=== PATIENT | female | born 1995 | race Hispanic/Latino ===

== ENCOUNTER → 2018-01-02 10:29 | Outpatient (CLI) | payer OTHER, MEDICAID, SELFPAY ==
[2018-01-02 17:37] LABS: Urine N gonorrhoeae NOT DETECTED
[2018-01-02 17:59] LABS: Urine Chlamydia NOT DETECTED
== END ==
PROVIDERS: PCP Family Medicine; Visit Provider Family Medicine
DX: Z11.3 Encounter for screening for infections with a predominantly sexual mode of transmission (principal)
CPT/HCPCS: 87491; 87591

== ENCOUNTER → 2018-01-16 11:21 | Outpatient (CLI) | payer OTHER, MEDICAID, SELFPAY ==
[2018-01-16 12:43] LABS: Add Manual Diff / Slide Review NO; Basophils Percent Auto 0.6 % (0-2); Eosinophils Percent Auto 0.4 % (2-4); Hematocrit 36.5 % (36-46); Hemoglobin 12.6 g/dL (12.0-16.0); Lymphocytes Percent Auto 29.7 % (25-40); Mean Corpuscular HGB Conc 34.5 % (30-36); Mean Corpuscular Hemoglobin 28.5 PG (26-34); Mean Corpuscular Volume 82.6 fL (80-100); Monocytes Percent Auto 10.2 % (3-14); Neutrophils Absolute Auto 2500 /uL (3000-5900); Neutrophils Percent Auto 59.1 % (50-75); Red Blood Cell Count 4.42 X10^6/uL (4.0-5.2); Red Cell Distribution Width 14.1 % (11.6-14.8); White Blood Cell Count 4.2 X10^3/uL (4.5-11.0)
[2018-01-16 14:03] LABS: Platelet Count 143 X10^3/uL (150-400)
[2018-01-16 14:27] LABS: Free T4, Direct Thyroxine 0.73 ng/dL (0.78-2.19)
[2018-01-16 16:36] LABS: HIV 1 and 2 Antibody NEGATIVE (NEGATIVE)
[2018-01-16 16:51] LABS: Glucose 89 mg/dL (70-100)
[2018-01-18 09:14] LABS: Hepatitis A Antibody IgM NONREACTIVE; Hepatitis Acute Panel Interp 0.07; Hepatitis B Core Antibody IgM NONREACTIVE; Hepatitis B Surface Antigen NONREACTIVE; Hepatitis C Antibody NONREACTIVE
[2018-01-24 14:50] LABS: Rapid Plasma Reagin NON REACTIVE
== END ==
PROVIDERS: PCP Family Medicine; Visit Provider Family Medicine
DX: E66.9 Obesity, unspecified (principal); Z11.3 Encounter for screening for infections with a predominantly sexual mode of transmission; R53.82 Chronic fatigue, unspecified
CPT/HCPCS: 36415; 80074; 82947; 84439; 84443; 85025; 86592; 86703

== ENCOUNTER → 2018-02-06 11:56 | Outpatient (CLI) | payer OTHER, MEDICAID, SELFPAY ==
[2018-02-06 13:42] LABS: Thyroid Stimulating Hormone 3.33 uIU/mL (0.47-4.68)
[2018-02-06 14:05] LABS: Vitamin B12 949 pg/mL (239-931)
[2018-02-06 15:53] LABS: Vitamin D 25 Hydroxy (D3) 20.5 ng/mL (30.0-100.0)
== END ==
PROVIDERS: PCP Family Medicine; Visit Provider Family Medicine
DX: E03.9 Hypothyroidism, unspecified (principal); R53.83 Other fatigue
CPT/HCPCS: 36415; 82306; 82607; 84443

== ENCOUNTER 2018-03-31 19:55 | Emergency (ER) | payer OTHER, MEDICAID, SELFPAY ==
[2018-03-31 20:02] VITALS: BP 131/91; PULSE 102; RESP 18; TEMP 37.5; O2SAT 98; BMI 35.4
--- NOTE | 2018-03-31 20:30 | ED.HA ---
HPI - Headache <ALEX Lim - Last Filed: 03/31/18 22:12> General Chief Complaint: Headache Stated Complaint: SIDE OF HEAD HURTS PERIOD FOR 2 WKS Time Seen by Provider: 03/31/18 20:20 Source: patient Mode of arrival: ambulatory History of Present Illness HPI Narrative: 22-year-old female with history of hypothyroidism and is a nonsmoker here for complaint of having headache to the right temporal/right eye area for the past couple of weeks. She denies any trauma to the area. She denies having history of having headaches. She denies any stressors or relievers of her symptoms. No nausea or vomiting. No photophobia. No fevers no chills. She denies any neck pain. Positive p.o. intake. She denies any other concerns or complaints at this time. MD Complaint: headache Related Data Previous Rx's Medication Instructions Recorded levothyroxine 50 mcg tablet 50 mcg PO DAILY #60 tab 01/17/18 prednisone 60 mg PO DAILY #21 tab 03/31/18 Allergies Allergy/AdvReac Type Severity Reaction Status Date / Time nabumetone AdvReac Mild itchy, Verified 03/31/18 20:52 stomach upset Review of Systems <ALEX Lim - Last Filed: 03/31/18 22:12> Review of Systems All systems reviewed & are unremarkable except as noted in HPI and below Constitutional Denies chills, Denies fever(s), Denies lethargy and Denies weakness Eyes Denies change in vision, Denies eye discharge, Denies irritation and Denies loss of vision ENT Ears, Nose, Mouth, and Throat: Denies change in voice, Denies neck pain and Denies sore throat Cardiovascular Denies chest pain, Denies irregular heart rhythm, Denies lightheadedness, Denies palpitations, Denies dyspnea, Denies dyspnea on exertion and Denies orthopnea Respiratory Denies cough, Denies dyspnea, Denies dyspnea on exertion and Denies wheezing Gastrointestinal Gastrointestinal: Denies abdominal pain, Denies change in bowel habits, Denies diarrhea, Denies nausea and Denies vomiting Genitourinary Denies hematuria, Denies flank pain, Denies urinary incontinence and Denies urinary urgency Musculoskeletal Denies neck pain Integumentary/Breasts Denies pruritus, Denies erythema, Denies rash and Denies wounds Neurologic Denies confusion, Denies loss of vision and Denies weakness Comments: Headache Psychiatric Denies anxiety, Denies confusion, Denies depression, Denies homicidal ideation and Denies suicidal ideation Endocrine Denies palpitations Hematologic/Lymphatic Denies easy bruising Allergic/Immunologic Denies wheezing Exam <ALEX Lim - Last Filed: 03/31/18 22:12> Initial Vital Signs Initial Vital Signs: Vital Signs Temperature 99.5 F 03/31/18 20:02 Pulse Rate 102 H 03/31/18 20:02 Respiratory Rate 18 03/31/18 20:02 Blood Pressure 131/91 H 03/31/18 20:02 Pulse Oximetry 98 03/31/18 20:02 Const General: cooperative and well developed Nutritional Appearance: well nourished Orientation: alert, awake, oriented x3 and not confused HENMT Head: normal to inspection, normocephalic, atraumatic, No Alex's sign, No contusion, No hematoma, No laceration, No palpable skull fracture, No raccoon eyes, No scalp lesion, No scalp tenderness and No temporal artery tenderness Mouth: oral mucosae normal and moist mucous membranes Throat: posterior oropharynx normal Eyes General: appearance normal, both eyes and all related structures Eyelids: eyelids normal Conjunctivae: conjunctivae normal Sclera: sclerae normal Pupils: PERRL EOM: EOM intact bilaterally Neck Neck: normal visual inspection, trachea midline, No lymphadenopathy, No midline deformity and No JVD Lymphatic: No lymphedema Resp Effort & Inspection: normal respiratory effort, able to speak in complete sentences, no respiratory distress and no use of accessory muscles Auscultation: clear to auscultation bilaterally, no rales, no rhonchi and no wheezes Cardio Rate: regular rate Rhythm: regular rhythm Heart Sounds: no click, no gallops, no murmurs and no rubs Skin General: no rashes or lesions noted, No jaundice and No petechiae Neuro General: alert, oriented x3, gait normal and no focal motor deficits Speech: speech normal <Fiona Champion DO - Last Filed: 04/01/18 02:26> Initial Vital Signs Initial Vital Signs: Vital Signs Temperature 99.5 F 03/31/18 20:02 Pulse Rate 102 H 03/31/18 20:02 Respiratory Rate 18 03/31/18 20:02 Blood Pressure 131/91 H 03/31/18 20:02 Pulse Oximetry 98 03/31/18 20:02 Course <ALEX Lim - Last Filed: 03/31/18 22:12> Orders Ordered: ED Orders 03/31/18 20:37 CT head/brain wo con Stat 03/31/18 20:44 Urine Microscopic Stat 03/31/18 20:55 C-Reactive Protein Quant Stat Complete Blood Count AUTO DIFF Stat Comprehensive Metabolic Panel Stat Erythrocyte Sedimentation Rate Stat Discontinued Medications Diphenhydramine HCl (Benadryl) 25 mg IV NOW ONE Stop: 03/31/18 20:37 Last Admin: 03/31/18 20:54 Dose: 25 mg Sodium Chloride (Normal Saline 0.9%) 1,000 mls @ 1,000 mls/hr IV BOLUS ONE Stop: 03/31/18 21:35 Last Infusion: 03/31/18 22:06 Dose: 0 mls/hr Admin: 03/31/18 20:55 Dose: 1,000 mls/hr Ketorolac Tromethamine (Toradol) 30 mg IV NOW ONE Stop: 03/31/18 20:37 Last Admin: 03/31/18 20:54 Dose: 30 mg Metoclopramide HCl (Reglan) 10 mg IV NOW ONE Stop: 03/31/18 20:37 Last Admin: 03/31/18 20:54 Dose: 10 mg Prednisone (Deltasone) 60 mg PO NOW ONE Stop: 03/31/18 21:59 Last Admin: 03/31/18 22:11 Dose: 60 mg Vital Signs - 8 hr 03/31/18 20:02 03/31/18 21:23 03/31/18 22:12 Temperature 99.5 F Pulse Rate 102 H 109 H 105 H Respiratory Rate 18 16 16 Blood Pressure 131/91 H Blood Pressure [Right Arm] 119/76 114/76 Pulse Oximetry 98 100 100 <Fiona Champion DO - Last Filed: 04/01/18 02:26> Orders Ordered: ED Orders 03/31/18 20:37 CT head/brain wo con Stat 03/31/18 20:44 Urine Microscopic Stat 03/31/18 20:55 C-Reactive Protein Quant Stat Complete Blood Count AUTO DIFF Stat Comprehensive Metabolic Panel Stat Erythrocyte Sedimentation Rate Stat Discontinued Medications Diphenhydramine HCl (Benadryl) 25 mg IV NOW ONE Stop: 03/31/18 20:37 Last Admin: 03/31/18 20:54 Dose: 25 mg Sodium Chloride (Normal Saline 0.9%) 1,000 mls @ 1,000 mls/hr IV BOLUS ONE Stop: 03/31/18 21:35 Last Infusion: 03/31/18 22:06 Dose: 0 mls/hr Admin: 03/31/18 20:55 Dose: 1,000 mls/hr Ketorolac Tromethamine (Toradol) 30 mg IV NOW ONE Stop: 03/31/18 20:37 Last Admin: 03/31/18 20:54 Dose: 30 mg Metoclopramide HCl (Reglan) 10 mg IV NOW ONE Stop: 03/31/18 20:37 Last Admin: 03/31/18 20:54 Dose: 10 mg Prednisone (Deltasone) 60 mg PO NOW ONE Stop: 03/31/18 21:59 Last Admin: 03/31/18 22:11 Dose: 60 mg Vital Signs - 8 hr 03/31/18 20:02 03/31/18 21:23 03/31/18 22:12 Temperature 99.5 F Pulse Rate 102 H 109 H 105 H Respiratory Rate 18 16 16 Blood Pressure 131/91 H Blood Pressure [Right Arm] 119/76 114/76 Pulse Oximetry 98 100 100 MDM - Headache <ALEX Lim - Last Filed: 03/31/18 22:12> Lab Data Result diagrams: 03/31/18 20:55 03/31/18 20:55 Lab Results 03/31/18 03/31/18 03/31/18 Range/Units 20:44 20:55 20:55 WBC 3.7 L (4.5-11.0) X10^3/uL RBC 4.39 (4.0-5.2) X10^6/uL Hgb 12.2 (12.0-16.0) g/dL Hct 36.1 (36-46) % MCV 82.1 (80-100) fL MCH 27.8 (26-34) PG MCHC 33.8 (30-36) % RDW 14.2 (11.6-14.8) % Plt Count 145 L (150-400) X10^3/uL Neut % (Auto) 50.5 (50-75) % Lymph % (Auto) 35.1 (25-40) % [place] % (Auto) 11.6 (3-14) % Eos % (Auto) 1.7 L (2-4) % Baso % (Auto) 1.1 (0-2) % Neut # (Auto) 1800 L (6116-5031) /uL ESR 65 H (0-20) MM/HR Sodium 144 (137-145) mmol/L Potassium 4.2 (3.4-5.1) mmol/L Chloride 104 (98-107) mmol/L Carbon Dioxide 27 (22-32) mmol/L BUN 16 (7-17) mg/dL Creatinine 0.60 (0.52-1.04) mg/dL Estimated GFR > 60.0 (>60) mL/min BUN/Creatinine Ratio 26.7 H (6-22) Glucose 92 (70-100) mg/dL Calcium 9.8 (8.4-10.2) mg/dL Total Bilirubin 0.3 (0.2-1.3) mg/dL AST 40 H (14-36) IU/L ALT 36 (9-52) IU/L Alkaline Phosphatase 69 (38-126) U/L C-Reactive Protein 2.6 H (<1.0) mg/dL Total Protein 8.6 H (6.3-8.2) g/dL Albumin 4.4 (3.5-5.0) g/dL Globulin 4.2 H (1.7-4.1) g/dL Albumin/Globulin Ratio 1.0 (1.0-2.8) Urine RBC 1-5/hpf (0-5/HPF) Urine WBC 0-1/hpf (0-5/HPF) Ur Squamous Epith Cells 0-1 /hpf Urine Bacteria Few (2-10) H (None) Ur Culture Indicated? Cult not indicated Micro UA Comment Not Reportable Point of Care Testing Test Results Negative Urine Dip Bedside Urine Glucose Negative Bedside Urine Bilirubin - Negative Bedside Urine Ketone - Negative Urine Specific [place] 1.030 Bedside Urine Occult Blood ++ Bedside Urine pH 6.0 Bedside Urine Protein - Negative Bedside Urine Urobilinogen - Negative Bedside Urine Nitrite - Negative Bedside Urine Leukocytes - Negative Esterase Imaging Data CT scan - head: Radiologist's impression: [address] [place], [place] [id number] CT Scan Report Signed Patient: Elis John#: [id number] : 1995Acct:[id number] Age/Sex: 22 / FDate of Service: 03/31/18 Loc: ED Accession Number: [id number] Procedure: CT head/brain wo con Ordering Provider: Gonzalez Yeager PROCEDURE: CT HEAD/BRAIN WO CON INDICATIONS: Headache last couple weeks TECHNIQUE: Noncontrast 4.5 mm thick angled axial sections acquired from the foramen magnum to the vertex, with coronal and sagittal reformats. For radiation dose reduction, the following was used: automated exposure control, adjustment of mA and/or kV according to patient size. COMPARISON: None. FINDINGS: Image quality: Excellent. CSF spaces: Basal cisterns are patent. No extra-axial fluid collections. Ventricles are normal in size and shape. Brain: No midline shift. No intracranial masses or hemorrhage. Larson-white matter interface is normal. Skull and face: Calvarium and visualized facial bones are intact, without suspicious lesions. Sinuses: Visualized sinuses and mastoids are clear. IMPRESSION: 1. No acute intracranial process. Dictated by: Mulu Blount M.D. on 03/31/2018 at 21:18 Approved by: Mulu Blount M.D. on 03/31/2018 at 21:19 [facility] Narrative Medical decision making narrative: CT of the head was obtained was negative for any acute findings. CBC shows a low white count of 3.7 and decreased neutrophils however is consistent with her prior lab values. ESR and CRP were obtained and were elevated. This is concerning for temporal arteritis. She is placed on high-dose prednisone. She is encouraged to follow up with primary care provider the next few days for re-evaluation. Discussed case with Dr. Mills whose office will follow up with her in the next few days. She was given fluids and Toradol along with Compazine and Benadryl which helped her headache. [id number] Tylenol or Motrin as needed for any discomfort. Return emergency room for worsening symptoms. <Fiona Champion, DO - Last Filed: 04/01/18 02:26> Lab Data Lab Results 03/31/18 03/31/18 03/31/18 Range/Units 20:44 20:55 20:55 WBC 3.7 L (4.5-11.0) X10^3/uL RBC 4.39 (4.0-5.2) X10^6/uL Hgb 12.2 (12.0-16.0) g/dL Hct 36.1 (36-46) % MCV 82.1 (80-100) fL MCH 27.8 (26-34) PG MCHC 33.8 (30-36) % RDW 14.2 (11.6-14.8) % Plt Count 145 L (150-400) X10^3/uL Neut % (Auto) 50.5 (50-75) % Lymph % (Auto) 35.1 (25-40) % [place] % (Auto) 11.6 (3-14) % Eos % (Auto) 1.7 L (2-4) % Baso % (Auto) 1.1 (0-2) % Neut # (Auto) 1800 L (3186-2007) /uL ESR 65 H (0-20) MM/HR Sodium 144 (137-145) mmol/L Potassium 4.2 (3.4-5.1) mmol/L Chloride 104 (98-107) mmol/L Carbon Dioxide 27 (22-32) mmol/L BUN 16 (7-17) mg/dL Creatinine 0.60 (0.52-1.04) mg/dL Estimated GFR > 60.0 (>60) mL/min BUN/Creatinine Ratio 26.7 H (6-22) Glucose 92 (70-100) mg/dL Calcium 9.8 (8.4-10.2) mg/dL Total Bilirubin 0.3 (0.2-1.3) mg/dL AST 40 H (14-36) IU/L ALT 36 (9-52) IU/L Alkaline Phosphatase 69 (38-126) U/L C-Reactive Protein 2.6 H (<1.0) mg/dL Total Protein 8.6 H (6.3-8.2) g/dL Albumin 4.4 (3.5-5.0) g/dL Globulin 4.2 H (1.7-4.1) g/dL Albumin/Globulin Ratio 1.0 (1.0-2.8) Urine RBC 1-5/hpf (0-5/HPF) Urine WBC 0-1/hpf (0-5/HPF) Ur Squamous Epith Cells 0-1 /hpf Urine Bacteria Few (2-10) H (None) Ur Culture Indicated? Cult not indicated Micro UA Comment Not Reportable Point of Care Testing Test Results Negative Urine Dip Bedside Urine Glucose Negative Bedside Urine Bilirubin - Negative Bedside Urine Ketone - Negative Urine Specific [place] 1.030 Bedside Urine Occult Blood ++ Bedside Urine pH 6.0 Bedside Urine Protein - Negative Bedside Urine Urobilinogen - Negative Bedside Urine Nitrite - Negative Bedside Urine Leukocytes - Negative Esterase Discharge Plan Departure Patient Disposition: Home Clinical Impression: Headache Discharge Date/Time: 03/31/18 22:24 Interventions: ED Discharge Assessment Last Done: 03/31/18 22:17 Instructions: Temporal Arteritis Activity Restrictions/Additional Instructions: CT of the head was obtained was negative for any acute findings. Inflammation markers of ESR and CRP were elevated today along with a headache to the temporal region is concerning for a condition called temporal arteritis. Treatment for this is high-dose steroids to to down the immune system as this is an autoimmune disease. Follow up with her primary care office Monday for further evaluation call the office Monday morning to schedule follow-up appointment. Use [id number] Tylenol or Motrin as needed for any discomfort. For any worsening symptoms return to the emergency room. You were started on prednisone tonight fill prescription tomorrow for the next subsequent days of the prednisone Prescriptions: New prednisone 20 mg tablet 60 mg PO DAILY Qty: 21 RF: 0 No Action levothyroxine 50 mcg tablet 50 mcg PO DAILY Qty: 60 RF: 1 Referrals: Frida Singh MD [Primary Care Provider] - Stand Alone Forms: Work/School Restrictions <Fiona Champion DO - Last Filed: 04/01/18 02:26> Cosign ED Attending Amaraature Attestation: I was immediately available in the department for consultation. Documentation has been reviewed. I agree with assessment and plan.
--- NOTE | 2018-03-31 20:37 | DI.CT.S_ITS ---
PROCEDURE: CT HEAD/BRAIN WO CON INDICATIONS: Headache last couple weeks TECHNIQUE: Noncontrast 4.5 mm thick angled axial sections acquired from the foramen magnum to the vertex, with coronal and sagittal reformats. For radiation dose reduction, the following was used: automated exposure control, adjustment of mA and/or kV according to patient size. COMPARISON: None. FINDINGS: Image quality: Excellent. CSF spaces: Basal cisterns are patent. No extra-axial fluid collections. Ventricles are normal in size and shape. Brain: No midline shift. No intracranial masses or hemorrhage. Larson-white matter interface is normal. Skull and face: Calvarium and visualized facial bones are intact, without suspicious lesions. Sinuses: Visualized sinuses and mastoids are clear. IMPRESSION: 1. No acute intracranial process. Dictated by: Mulu Blount M.D. on 03/31/2018 at 21:18 Approved by: Mulu Blount M.D. on 03/31/2018 at 21:19
--- NOTE | 2018-03-31 20:52 | ED_ITS ---
HPI - Headache <ALEX Lim - Last Filed: 03/31/18 22:12> General Chief Complaint: Headache Stated Complaint: SIDE OF HEAD HURTS PERIOD FOR 2 WKS Time Seen by Provider: 03/31/18 20:20 Source: patient Mode of arrival: ambulatory History of Present Illness HPI Narrative: 22-year-old female with history of hypothyroidism and is a nonsmoker here for complaint of having headache to the right temporal/right eye area for the past couple of weeks. She denies any trauma to the area. She denies having history of having headaches. She denies any stressors or relievers of her symptoms. No nausea or vomiting. No photophobia. No fevers no chills. She denies any neck pain. Positive p.o. intake. She denies any other concerns or complaints at this time. MD Complaint: headache Related Data Previous Rx's Medication Instructions Recorded levothyroxine 50 mcg tablet 50 mcg PO DAILY #60 tab 01/17/18 prednisone 60 mg PO DAILY #21 tab 03/31/18 Allergies Allergy/AdvReac Type Severity Reaction Status Date / Time nabumetone AdvReac Mild itchy, Verified 03/31/18 20:52 stomach upset Review of Systems <ALEX Lim - Last Filed: 03/31/18 22:12> Review of Systems All systems reviewed & are unremarkable except as noted in HPI and below Constitutional Denies chills, Denies fever(s), Denies lethargy and Denies weakness Eyes Denies change in vision, Denies eye discharge, Denies irritation and Denies loss of vision ENT Ears, Nose, Mouth, and Throat: Denies change in voice, Denies neck pain and Denies sore throat Cardiovascular Denies chest pain, Denies irregular heart rhythm, Denies lightheadedness, Denies palpitations, Denies dyspnea, Denies dyspnea on exertion and Denies orthopnea Respiratory Denies cough, Denies dyspnea, Denies dyspnea on exertion and Denies wheezing Gastrointestinal Gastrointestinal: Denies abdominal pain, Denies change in bowel habits, Denies diarrhea, Denies nausea and Denies vomiting Genitourinary Denies hematuria, Denies flank pain, Denies urinary incontinence and Denies urinary urgency Musculoskeletal Denies neck pain Integumentary/Breasts Denies pruritus, Denies erythema, Denies rash and Denies wounds Neurologic Denies confusion, Denies loss of vision and Denies weakness Comments: Headache Psychiatric Denies anxiety, Denies confusion, Denies depression, Denies homicidal ideation and Denies suicidal ideation Endocrine Denies palpitations Hematologic/Lymphatic Denies easy bruising Allergic/Immunologic Denies wheezing Exam <ALEX Lim - Last Filed: 03/31/18 22:12> Initial Vital Signs Initial Vital Signs: Vital Signs Temperature 99.5 F 03/31/18 20:02 Pulse Rate 102 H 03/31/18 20:02 Respiratory Rate 18 03/31/18 20:02 Blood Pressure 131/91 H 03/31/18 20:02 Pulse Oximetry 98 03/31/18 20:02 Const General: cooperative and well developed Nutritional Appearance: well nourished Orientation: alert, awake, oriented x3 and not confused HENMT Head: normal to inspection, normocephalic, atraumatic, No Alex's sign, No contusion, No hematoma, No laceration, No palpable skull fracture, No raccoon eyes, No scalp lesion, No scalp tenderness and No temporal artery tenderness Mouth: oral mucosae normal and moist mucous membranes Throat: posterior oropharynx normal Eyes General: appearance normal, both eyes and all related structures Eyelids: eyelids normal Conjunctivae: conjunctivae normal Sclera: sclerae normal Pupils: PERRL EOM: EOM intact bilaterally Neck Neck: normal visual inspection, trachea midline, No lymphadenopathy, No midline deformity and No JVD Lymphatic: No lymphedema Resp Effort & Inspection: normal respiratory effort, able to speak in complete sentences, no respiratory distress and no use of accessory muscles Auscultation: clear to auscultation bilaterally, no rales, no rhonchi and no wheezes Cardio Rate: regular rate Rhythm: regular rhythm Heart Sounds: no click, no gallops, no murmurs and no rubs Skin General: no rashes or lesions noted, No jaundice and No petechiae Neuro General: alert, oriented x3, gait normal and no focal motor deficits Speech: speech normal <Fiona Champion DO - Last Filed: 04/01/18 02:26> Initial Vital Signs Initial Vital Signs: Vital Signs Temperature 99.5 F 03/31/18 20:02 Pulse Rate 102 H 03/31/18 20:02 Respiratory Rate 18 03/31/18 20:02 Blood Pressure 131/91 H 03/31/18 20:02 Pulse Oximetry 98 03/31/18 20:02 Course <ALEX Lim - Last Filed: 03/31/18 22:12> Orders Ordered: ED Orders 03/31/18 20:37 CT head/brain wo con Stat 03/31/18 20:44 Urine Microscopic Stat 03/31/18 20:55 C-Reactive Protein Quant Stat Complete Blood Count AUTO DIFF Stat Comprehensive Metabolic Panel Stat Erythrocyte Sedimentation Rate Stat Discontinued Medications Diphenhydramine HCl (Benadryl) 25 mg IV NOW ONE Stop: 03/31/18 20:37 Last Admin: 03/31/18 20:54 Dose: 25 mg Sodium Chloride (Normal Saline 0.9%) 1,000 mls @ 1,000 mls/hr IV BOLUS ONE Stop: 03/31/18 21:35 Last Infusion: 03/31/18 22:06 Dose: 0 mls/hr Admin: 03/31/18 20:55 Dose: 1,000 mls/hr Ketorolac Tromethamine (Toradol) 30 mg IV NOW ONE Stop: 03/31/18 20:37 Last Admin: 03/31/18 20:54 Dose: 30 mg Metoclopramide HCl (Reglan) 10 mg IV NOW ONE Stop: 03/31/18 20:37 Last Admin: 03/31/18 20:54 Dose: 10 mg Prednisone (Deltasone) 60 mg PO NOW ONE Stop: 03/31/18 21:59 Last Admin: 03/31/18 22:11 Dose: 60 mg Vital Signs - 8 hr 03/31/18 20:02 03/31/18 21:23 03/31/18 22:12 Temperature 99.5 F Pulse Rate 102 H 109 H 105 H Respiratory Rate 18 16 16 Blood Pressure 131/91 H Blood Pressure [Right Arm] 119/76 114/76 Pulse Oximetry 98 100 100 <Fiona Champion DO - Last Filed: 04/01/18 02:26> Orders Ordered: ED Orders 03/31/18 20:37 CT head/brain wo con Stat 03/31/18 20:44 Urine Microscopic Stat 03/31/18 20:55 C-Reactive Protein Quant Stat Complete Blood Count AUTO DIFF Stat Comprehensive Metabolic Panel Stat Erythrocyte Sedimentation Rate Stat Discontinued Medications Diphenhydramine HCl (Benadryl) 25 mg IV NOW ONE Stop: 03/31/18 20:37 Last Admin: 03/31/18 20:54 Dose: 25 mg Sodium Chloride (Normal Saline 0.9%) 1,000 mls @ 1,000 mls/hr IV BOLUS ONE Stop: 03/31/18 21:35 Last Infusion: 03/31/18 22:06 Dose: 0 mls/hr Admin: 03/31/18 20:55 Dose: 1,000 mls/hr Ketorolac Tromethamine (Toradol) 30 mg IV NOW ONE Stop: 03/31/18 20:37 Last Admin: 03/31/18 20:54 Dose: 30 mg Metoclopramide HCl (Reglan) 10 mg IV NOW ONE Stop: 03/31/18 20:37 Last Admin: 03/31/18 20:54 Dose: 10 mg Prednisone (Deltasone) 60 mg PO NOW ONE Stop: 03/31/18 21:59 Last Admin: 03/31/18 22:11 Dose: 60 mg Vital Signs - 8 hr 03/31/18 20:02 03/31/18 21:23 03/31/18 22:12 Temperature 99.5 F Pulse Rate 102 H 109 H 105 H Respiratory Rate 18 16 16 Blood Pressure 131/91 H Blood Pressure [Right Arm] 119/76 114/76 Pulse Oximetry 98 100 100 MDM - Headache <ALEX Lim - Last Filed: 03/31/18 22:12> Lab Data Result diagrams: 03/31/18 20:55 03/31/18 20:55 Lab Results 03/31/18 03/31/18 03/31/18 Range/Units 20:44 20:55 20:55 WBC 3.7 L (4.5-11.0) X10^3/uL RBC 4.39 (4.0-5.2) X10^6/uL Hgb 12.2 (12.0-16.0) g/dL Hct 36.1 (36-46) % MCV 82.1 (80-100) fL MCH 27.8 (26-34) PG MCHC 33.8 (30-36) % RDW 14.2 (11.6-14.8) % Plt Count 145 L (150-400) X10^3/uL Neut % (Auto) 50.5 (50-75) % Lymph % (Auto) 35.1 (25-40) % Stone % (Auto) 11.6 (3-14) % Eos % (Auto) 1.7 L (2-4) % Baso % (Auto) 1.1 (0-2) % Neut # (Auto) 1800 L (0741-4754) /uL ESR 65 H (0-20) MM/HR Sodium 144 (137-145) mmol/L Potassium 4.2 (3.4-5.1) mmol/L Chloride 104 (98-107) mmol/L Carbon Dioxide 27 (22-32) mmol/L BUN 16 (7-17) mg/dL Creatinine 0.60 (0.52-1.04) mg/dL Estimated GFR > 60.0 (>60) mL/min BUN/Creatinine Ratio 26.7 H (6-22) Glucose 92 (70-100) mg/dL Calcium 9.8 (8.4-10.2) mg/dL Total Bilirubin 0.3 (0.2-1.3) mg/dL AST 40 H (14-36) IU/L ALT 36 (9-52) IU/L Alkaline Phosphatase 69 (38-126) U/L C-Reactive Protein 2.6 H (<1.0) mg/dL Total Protein 8.6 H (6.3-8.2) g/dL Albumin 4.4 (3.5-5.0) g/dL Globulin 4.2 H (1.7-4.1) g/dL Albumin/Globulin Ratio 1.0 (1.0-2.8) Urine RBC 1-5/hpf (0-5/HPF) Urine WBC 0-1/hpf (0-5/HPF) Ur Squamous Epith Cells 0-1 /hpf Urine Bacteria Few (2-10) H (None) Ur Culture Indicated? Cult not indicated Micro UA Comment Not Reportable Point of Care Testing Test Results Negative Urine Dip Bedside Urine Glucose Negative Bedside Urine Bilirubin - Negative Bedside Urine Ketone - Negative Urine Specific [place] 1.030 Bedside Urine Occult Blood ++ Bedside Urine pH 6.0 Bedside Urine Protein - Negative Bedside Urine Urobilinogen - Negative Bedside Urine Nitrite - Negative Bedside Urine Leukocytes - Negative Esterase Imaging Data CT scan - head: Radiologist's impression: [address] [place], [place] [id number] CT Scan Report Signed Patient: Elis John#: [id number] : 1995Acct:[id number] Age/Sex: 22 / FDate of Service: 03/31/18 Loc: ED Accession Number: [id number] Procedure: CT head/brain wo con Ordering Provider: Gonzalez Yeager PROCEDURE: CT HEAD/BRAIN WO CON INDICATIONS: Headache last couple weeks TECHNIQUE: Noncontrast 4.5 mm thick angled axial sections acquired from the foramen magnum to the vertex, with coronal and sagittal reformats. For radiation dose reduction, the following was used: automated exposure control, adjustment of mA and/or kV according to patient size. COMPARISON: None. FINDINGS: Image quality: Excellent. CSF spaces: Basal cisterns are patent. No extra-axial fluid collections. Ventricles are normal in size and shape. Brain: No midline shift. No intracranial masses or hemorrhage. Larson-white matter interface is normal. Skull and face: Calvarium and visualized facial bones are intact, without suspicious lesions. Sinuses: Visualized sinuses and mastoids are clear. IMPRESSION: 1. No acute intracranial process. Dictated by: Mulu Blount M.D. on 03/31/2018 at 21:18 Approved by: Mulu Blount M.D. on 03/31/2018 at 21:19 [facility] Narrative Medical decision making narrative: CT of the head was obtained was negative for any acute findings. CBC shows a low white count of 3.7 and decreased neutrophils however is consistent with her prior lab values. ESR and CRP were obtained and were elevated. This is concerning for temporal arteritis. She is placed on high-dose prednisone. She is encouraged to follow up with primary care provider the next few days for re-evaluation. Discussed case with Dr. Mills whose office will follow up with her in the next few days. She was given fluids and Toradol along with Compazine and Benadryl which helped her headache. [id number] Tylenol or Motrin as needed for any discomfort. Return emergency room for worsening symptoms. <Fiona Champion, DO - Last Filed: 04/01/18 02:26> Lab Data Lab Results 03/31/18 03/31/18 03/31/18 Range/Units 20:44 20:55 20:55 WBC 3.7 L (4.5-11.0) X10^3/uL RBC 4.39 (4.0-5.2) X10^6/uL Hgb 12.2 (12.0-16.0) g/dL Hct 36.1 (36-46) % MCV 82.1 (80-100) fL MCH 27.8 (26-34) PG MCHC 33.8 (30-36) % RDW 14.2 (11.6-14.8) % Plt Count 145 L (150-400) X10^3/uL Neut % (Auto) 50.5 (50-75) % Lymph % (Auto) 35.1 (25-40) % Stone % (Auto) 11.6 (3-14) % Eos % (Auto) 1.7 L (2-4) % Baso % (Auto) 1.1 (0-2) % Neut # (Auto) 1800 L (4306-5490) /uL ESR 65 H (0-20) MM/HR Sodium 144 (137-145) mmol/L Potassium 4.2 (3.4-5.1) mmol/L Chloride 104 (98-107) mmol/L Carbon Dioxide 27 (22-32) mmol/L BUN 16 (7-17) mg/dL Creatinine 0.60 (0.52-1.04) mg/dL Estimated GFR > 60.0 (>60) mL/min BUN/Creatinine Ratio 26.7 H (6-22) Glucose 92 (70-100) mg/dL Calcium 9.8 (8.4-10.2) mg/dL Total Bilirubin 0.3 (0.2-1.3) mg/dL AST 40 H (14-36) IU/L ALT 36 (9-52) IU/L Alkaline Phosphatase 69 (38-126) U/L C-Reactive Protein 2.6 H (<1.0) mg/dL Total Protein 8.6 H (6.3-8.2) g/dL Albumin 4.4 (3.5-5.0) g/dL Globulin 4.2 H (1.7-4.1) g/dL Albumin/Globulin Ratio 1.0 (1.0-2.8) Urine RBC 1-5/hpf (0-5/HPF) Urine WBC 0-1/hpf (0-5/HPF) Ur Squamous Epith Cells 0-1 /hpf Urine Bacteria Few (2-10) H (None) Ur Culture Indicated? Cult not indicated Micro UA Comment Not Reportable Point of Care Testing Test Results Negative Urine Dip Bedside Urine Glucose Negative Bedside Urine Bilirubin - Negative Bedside Urine Ketone - Negative Urine Specific [place] 1.030 Bedside Urine Occult Blood ++ Bedside Urine pH 6.0 Bedside Urine Protein - Negative Bedside Urine Urobilinogen - Negative Bedside Urine Nitrite - Negative Bedside Urine Leukocytes - Negative Esterase Discharge Plan Departure Patient Disposition: Home Clinical Impression: Headache Discharge Date/Time: 03/31/18 22:24 Interventions: ED Discharge Assessment Last Done: 03/31/18 22:17 Instructions: Temporal Arteritis Activity Restrictions/Additional Instructions: CT of the head was obtained was negative for any acute findings. Inflammation markers of ESR and CRP were elevated today along with a headache to the temporal region is concerning for a condition called temporal arteritis. Treatment for this is high-dose steroids to to down the immune system as this is an autoimmune disease. Follow up with her primary care office Monday for further evaluation call the office Monday morning to schedule follow -up appointment. Use [id number]-[id number] Tylenol or Motrin as needed for any discomfort. For any worsening symptoms return to the emergency room. You were started on prednisone tonight fill prescription tomorrow for the next subsequent days of the prednisone Prescriptions: New prednisone 20 mg tablet 60 mg PO DAILY Qty: 21 RF: 0 No Action levothyroxine 50 mcg tablet 50 mcg PO DAILY Qty: 60 RF: 1 Referrals: Frida Singh MD [Primary Care Provider] - Stand Alone Forms: Work/School Restrictions <Fiona Champion DO - Last Filed: 04/01/18 02:26> Cosign ED Attending Amaraature Attestation: I was immediately available in the department for consultation. Documentation has been reviewed. I agree with assessment and plan.
[2018-03-31] MEDS: KETOROLAC 60 MG/2 ML VIAL 30 MG IV (20:54)
[2018-03-31] MEDS: METOCLOPRAMIDE 10 MG/2 ML INJ IV (20:54)
[2018-03-31] MEDS: diphenhydrAMINE 50 MG/ML VIAL 25 MG IV (20:54)
[2018-03-31] MEDS: SODIUM CHLORIDE 0.9% 1,000 ML 1000 ML IV (20:55)
[2018-03-31 21:01] LABS: Bacteria Urine Few (2-10); Culture Indicated Urine Cult Not Indicated; RBC Urine 1-5/HPF (0-5/HPF); Squamous Epithelial Cell Urine 0-1 /HPF; WBC Urine 0-1/HPF (0-5/HPF)
[2018-03-31 21:21] LABS: Add Manual Diff / Slide Review NO; Basophils Percent Auto 1.1 % (0-2); Eosinophils Percent Auto 1.7 % (2-4); Hematocrit 36.1 % (36-46); Hemoglobin 12.2 g/dL (12.0-16.0); Lymphocytes Percent Auto 35.1 % (25-40); Mean Corpuscular HGB Conc 33.8 % (30-36); Mean Corpuscular Hemoglobin 27.8 PG (26-34); Mean Corpuscular Volume 82.1 fL (80-100); Monocytes Percent Auto 11.6 % (3-14); Neutrophils Absolute Auto 1800 /uL (3000-5900); Neutrophils Percent Auto 50.5 % (50-75); Platelet Count 145 X10^3/uL (150-400); Red Blood Cell Count 4.39 X10^6/uL (4.0-5.2); Red Cell Distribution Width 14.2 % (11.6-14.8); White Blood Cell Count 3.7 X10^3/uL (4.5-11.0)
[2018-03-31 21:23] VITALS: BP 119/76; PULSE 109; RESP 16; O2SAT 100
[2018-03-31 21:28] LABS: Alanine Aminotransferase 36 IU/L (9-52); Albumin 4.4 g/dL (3.5-5.0); Alkaline Phosphatase 69 U/L (38-126); Aspartate Aminotransferase 40 IU/L (14-36); BUN Creatinine Ratio 26.7 (6-22); Bilirubin Total 0.3 mg/dL (0.2-1.3); Blood Urea Nitrogen 16 mg/dL (7-17); Calcium 9.8 mg/dL (8.4-10.2); Carbon Dioxide 27 mmol/L (22-32); Chloride 104 mmol/L (98-107); Estimated Glomerular Filt Rate > 60.0 mL/min (>60); Globulin 4.2 g/dL (1.7-4.1); Glucose 92 mg/dL (70-100); HEMOLYSIS < 15 (0-50); Potassium 4.2 mmol/L (3.4-5.1); Sodium 144 mmol/L (137-145); Total Protein 8.6 g/dL (6.3-8.2)
[2018-03-31 21:36] LABS: Erythrocyte Sedimentation Rate 65 MM/HR (0-20)
[2018-03-31 21:41] LABS: C-Reactive Protein Quant 2.6 mg/dL (<1.0)
[2018-03-31] MEDS: predniSONE 20 MG TABLET 60 MG PO (22:11)
[2018-03-31 22:12] VITALS: BP 114/76; PULSE 105; RESP 16; O2SAT 100
== END 2018-03-31 22:24 | disposition home or self-care (01) ==
PROVIDERS: Emergency Provider Nurse Practitioner Family; PCP Family Medicine
DX: R51 Headache (principal)
CPT/HCPCS: 36591; 70450; 80053; 81003; 81015; 81025; 85025; 85651; 86140; 96361; 96374; 96375; 99283; 99284; J1200; J1885; J2765

== ENCOUNTER 2018-04-05 14:38 | Day surgery (SDC) | payer OTHER, MEDICAID, SELFPAY ==
[2018-04-04 14:12] VITALS: BMI 34.7
--- NOTE | 2018-04-05 | PATH_ITS ---
[facility] Accession Number: [id number] . 01 Material submitted: . PART A: LEFT TEMPORAL ARTERY SEGMENT AND POSSIBLE VEIN PART B: RIGHT TEMPORAL ARTERY SEGMENT . 02 Diagnosis: A. Left Temporal Artery Segment And Possible Vein: Negative for features of temporal arteritis. No structural abnormality identified by VVG stain. . B. Right Temporal Artery Segment: Negative for features of temporal arteritis. No structural abnormality identified by VVG stain. I04/09/2018 . 02 Electronically signed: . Rosy Anna MD, Pathologist NPI- [id number] . 01 Gross description: . Part A: LEFT TEMPORAL ARTERY SEGMENT AND POSSIBLE VEIN: Received in formalin is 1 fragment(s) of ca, soft tissue measuring 0.9 x 0.4 x 0.3 cm submitted entirely in 1 cassette(s) Part B: RIGHT TEMPORAL ARTERY SEGMENT: Received in formalin is 1 fragment(s) of ca, soft tissue measuring 1.0 x 0.3 x 0.2 cm submitted entirely in 1 cassette(s) /CKI /CKI . 02 Pathologist provided ICD-10: M31.6 . 02 CPT . 318982, 215976, 281925 Specimen Comment: A duplicate report has been generated due to demographic updates. Performed at: 01 [facility] [address], [place], [place] [id number] MD Edd Dickinson MD Phone: [phone] Performed at: 02 [facility] [address] [place], [place] [id number] MD Martina Duarte MD Phone: [phone]
[2018-04-05 15:26] VITALS: BP 125/89; PULSE 94; RESP 16; TEMP 36.1; O2SAT 100; BMI 34.7
[2018-04-05] MEDS: LACTATED RINGERS 1,000 ML 100 ML IV (15:33)
--- NOTE | 2018-04-05 15:58 | PM.PREOP ---
Pre-operative Note Interval Note Pre-op Check: Yes History & Physical Reviewed by Physician and Yes Exam Performed Changes: No
[2018-04-05] MEDS: CEFAZOLIN 2 GM/100 ML FROZ.PIGGY IV (16:25)
--- NOTE | 2018-04-05 16:56 | SUR.OPER ---
Supine on padded OR bed, head on pillow, arms secured on padded arm boards at <90 degrees abduction, legs uncrossed, safety belt at thigh, tape over blanket over lower legs.
[2018-04-05] MEDS: LIDOCAINE 1% 30 ML INJ INJ (17:03)
[2018-04-05 18:00] VITALS: BP 111/79; PULSE 96; RESP 15; TEMP 36.4; O2SAT 100
[2018-04-05 18:05] VITALS: BP 127/84; PULSE 70; RESP 16; O2SAT 100
[2018-04-05 18:10] VITALS: BP 133/70; PULSE 75; RESP 16; O2SAT 100
[2018-04-05] MEDS: fentaNYL 100 MCG/2 ML INJ 25 MCG IV ×2 (18:19→18:25)
--- NOTE | 2018-04-05 18:20 | PM.OP.1 ---
Operative Date/Time/Diagnoses Date of procedure: 04/05/18 Time of procedure: 18:04 Pre-op diagnosis: Sided temporal headache consider temporal arteritis. Elevated nonspecific inflammatory markers. Post-op diagnosis: same Procedure & Clinicians Procedure: Bilateral temporal artery biopsy Same procedure as scheduled: Yes Indications: Rule out temporal arteritis Surgeon: Butch Briseno Click Yes if Unassisted: Yes Anesthesia Type: General Operative Notes Findings: Normal appearing arteries Closure Type: primary Specimen(s): other (Segment temporal Artery and possible vein on the left. Segment temporal Artery on the right) Implants & Drains: None Estimated Blood Loss (mL): 5 Blood products transfused: none Procedure in detail: The patient was placed supine on the operating table and underwent general LMA anesthesia. Hair was clipped on both sides and the left side was prepped and draped. Using a Doppler I found an arterial signal. Fortunately was posterior hairline. A small incision was made overlying it and using sharp and blunt dissection artery and and adjacent vein were from surrounding structures and all branches were ligated and the segment removed. Muscle fascia was closed with interrupted 3 0 Polysorb. The says skin was closed with interrupted 4 0 Vicryl subcuticular stitches and Dermabond. Attention was turned to the opposite right side where an identical operation was undertaken. On this side I was able to isolate the artery better from the vein. Think a took mostly artery on the right. The closure was identical to the opposite side. Patient tolerated the procedure well was extubated in the a all are in taken recovery room good condition. Complications: none Condition: stable Disposition: PACU
[2018-04-05 18:25] VITALS: BP 135/97; PULSE 84; RESP 16; TEMP 36.6; O2SAT 100
[2018-04-05] MEDS: OXYCODONE/ACETAMINOPHEN 5/325 TABLET 1 TAB PO (18:43)
[2018-04-05 18:44] VITALS: BP 137/90; PULSE 79; RESP 16; TEMP 36.4; O2SAT 98
== END 2018-04-05 18:57 | disposition home or self-care (01) ==
PROVIDERS: PCP Family Medicine; Visit Provider Specialist
PROC: (CPT 37609; principal; 2018-04-05 16:00)
DX: M31.6 Other giant cell arteritis (principal); R51 Headache; E03.9 Hypothyroidism, unspecified
CPT/HCPCS: 37609; J0690; J1100; J2250; J2405; J2704; J3010

== ENCOUNTER 2018-06-23 11:19 | Emergency (ER) | payer OTHER, MEDICAID, SELFPAY ==
[2018-06-23 11:24] VITALS: BP 119/85; PULSE 96; RESP 14; TEMP 36.6; O2SAT 100; BMI 32.9
--- NOTE | 2018-06-23 12:29 | ED_ITS ---
HPI - Extremity Problem <Jessica Lepe PA-C - Last Filed: 06/23/18 15:22> General Chief complaint: Extremity Problem,Nontraumatic Stated complaint: States severe rt foot pain x1day Time Seen by Provider: 06/23/18 12:24 Source: patient Mode of arrival: ambulatory Limitations: no limitations History of Present Illness HPI Narrative: This 22-year-old female complains of severe right foot pain that started when she got up this morning. 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 She states that pain is more on the lateral side of the foot, okay when at rest but very painful if she tries to bear any weight. She denies pain in the heel and indicates this is more around the ball of her foot. Worse with trying to walk up stairs. She has not noted any swelling. She denies any new trauma. She does not have pain elsewhere in the leg or other joints. She has not taken any medication at home for this. She denies any possibility of , has control implant in her arm Related Data Home Medications Medication Instructions Recorded Confirmed No Known Home Medications 06/23/18 06/23/18 Allergies Allergy/AdvReac Type Severity Reaction Status Date / Time nabumetone AdvReac Mild itchy, Verified 04/25/18 15:12 stomach upset Review of Systems <Jessica Lepe PA-C - Last Filed: 06/23/18 15:22> Review of Systems ROS Unobtainable: All systems reviewed & are unremarkable except as noted in HPI and below Exam <Jessica Lepe PA-C - Last Filed: 06/23/18 15:22> Narrative Exam Narrative: GENERAL APPEARANCE: Patient sitting comfortably, in no distress. LUNGS: Clear to auscultation bilaterally. HEART: Rate and rhythm regular without murmur, normal S1 and S2, no S3 or S4. MUSCULOSKELETAL: Bilateral pes planus noted. There is no effusion over the feet or ankles. Right foot is exquisitely tender over the lateral and inferior 5th metatarsal, very tender over the other mid metatarsals as well. No tenderness over the ankle or posterior foot, no tenderness over the toes where she has full range of motion. Achilles is intact by palpation and ankle range of motion is normal. NEUROVASCULAR: Right foot is warm and pink with intact pedal pulses, sensation grossly intact Initial Vital Signs Initial Vital Signs: Vital Signs Temperature 97.9 F 06/23/18 11:24 Pulse Rate 96 H 06/23/18 11:24 Respiratory Rate 14 06/23/18 11:24 Blood Pressure 119/85 06/23/18 11:24 Pulse Oximetry 100 06/23/18 11:24 <DO Aniket Edwards Last Filed: 06/23/18 18:55> Initial Vital Signs Initial Vital Signs: Vital Signs Temperature 97.9 F 06/23/18 11:24 Pulse Rate 96 H 06/23/18 11:24 Respiratory Rate 14 06/23/18 11:24 Blood Pressure 119/85 06/23/18 11:24 Pulse Oximetry 100 06/23/18 11:24 Course <PATO Padron Last Filed: 06/23/18 15:22> Additional Information: patient was unable to bear weight in orthopedic shoe. Placed in James wrap and crutches. She will be off of work if she has to weight bear constantly and will follow up with PCP early in the week to determine whether more imaging or other testing needed. Orders Ordered: ED Orders 06/23/18 12:44 XR foot RT min 3V Stat Vital Signs - 8 hr 06/23/18 11:24 06/23/18 13:00 06/23/18 13:56 Temperature 97.9 F Pulse Rate 96 H 72 Pulse Rate [Right Dorsalis Pedis] 70 Respiratory Rate 14 18 Blood Pressure 119/85 Blood Pressure [Left Arm] 115/70 Pulse Oximetry 100 100 <DO Aniket Edwards Last Filed: 06/23/18 18:55> Orders Ordered: ED Orders 06/23/18 12:44 XR foot RT min 3V Stat Vital Signs - 8 hr 06/23/18 11:24 06/23/18 13:00 06/23/18 13:56 Temperature 97.9 F Pulse Rate 96 H 72 Pulse Rate [Right Dorsalis Pedis] 70 Respiratory Rate 14 18 Blood Pressure 119/85 Blood Pressure [Left Arm] 115/70 Pulse Oximetry 100 100 MDM - Extremity (Nontraumatic) <PATO Padron Last Filed: 06/23/18 15:22> Imaging Data foot: Radiologist's impression: [address] [address] XRay Report Signed Patient: Elis John#: [id number] : 1995Acct:[id number] Age/Sex: 22 / FDate of Service: 06/23/18 Loc: ED Accession Number: [id number] Procedure: XR foot RT min 3V Ordering Provider: Jessica Lepe P.A-C PROCEDURE: XR FOOT RT MIN 3V INDICATIONS: MT pain, most 5th, difficulty weight bearing TECHNIQUE: 3 views of the foot were acquired. COMPARISON: None. FINDINGS: Bones: No fractures or dislocations. No suspicious bony lesions. Soft tissues: No tibiotalar joint effusion. Achilles tendon appears normal. IMPRESSION: No acute fracture. No osseous lesion. If clinical suspicion and/or symptoms persist, further assessment with repeat plainfilms, or advanced imaging (e.g., CT, MRI, or bone scan) may be helpful for further assessment. Dictated by: Dafne Jorge M.D. on 06/23/2018 at 13:10 Approved by: Dafne Jorge M.D. on 06/23/2018 at 13:10 Discharge Plan Departure Patient Disposition: Home Clinical Impression: Pain in metatarsus of right foot Discharge Date/Time: 06/23/18 14:11 Interventions: ED Discharge Assessment Last Done: 06/23/18 14:10 Instructions: DI for Foot Pain Activity Restrictions/Additional Instructions: The source of your pain is not clear. There is no fracture (broken bone) seen on your x-ray today, and you may have inflammation of the metatarsal (long bones) in your foot. As we talked about, it is important that you follow-up with her PCP as you may need further x-rays or testing if this is not getting better in the next week. In the interim, please keep the James wrap on and use the crutches whenever you are on your feet. Take ibuprofen 800 mg every 8 hr to help with pain and inflammation and you may add Tylenol as needed. Please remain off of work for a few days and call your PCP 1st thing on Monday to set up follow-up. You can determine any further work restrictions needed from there. Prescriptions: No Action No Known Home Medications RF: 0 Referrals: Frida Singh MD [Primary Care Provider] - Stand Alone Forms: Work Release Note <Mickey Foy DO - Last Filed: 06/23/18 18:55> Cosign ED Attending Sloane Attestation: I was available for consultation during this patient's emergency department encounter
--- NOTE | 2018-06-23 12:44 | DI.RAD.S_ITS ---
PROCEDURE: XR FOOT RT MIN 3V INDICATIONS: MT pain, most 5th, difficulty weight bearing TECHNIQUE: 3 views of the foot were acquired. COMPARISON: None. FINDINGS: Bones: No fractures or dislocations. No suspicious bony lesions. Soft tissues: No tibiotalar joint effusion. Achilles tendon appears normal. IMPRESSION: No acute fracture. No osseous lesion. If clinical suspicion and/or symptoms persist, further assessment with repeat plainfilms, or advanced imaging (e.g., CT, MRI, or bone scan) may be helpful for further assessment. Dictated by: Dafne Jorge M.D. on 06/23/2018 at 13:10 Approved by: Dafne Jorge M.D. on 06/23/2018 at 13:10
[2018-06-23 13:00] VITALS: PULSE 70
[2018-06-23 13:56] VITALS: BP 115/70; PULSE 72; RESP 18; O2SAT 100
== END 2018-06-23 14:11 | disposition home or self-care (01) ==
PROVIDERS: Emergency Provider Internal Medicine; PCP Family Medicine
DX: M89.8X7 Other specified disorders of bone, ankle and foot (principal)
CPT/HCPCS: 73630; 99282; 99283

== ENCOUNTER → 2018-07-30 14:48 | Outpatient (CLI) | payer OTHER, MEDICAID, SELFPAY ==
--- NOTE | 2018-07-30 14:49 | DI.US.S_ITS ---
PROCEDURE: US SOFT TISSUE HEAD AND NECK INDICATIONS: LATERAL LEFT NECK LUMP TECHNIQUE: Real-time scanning was performed of the neck region of interest, with image documentation. COMPARISON: None. FINDINGS: Enlarged left lateral lymph node in the area of palpable abnormality. The largest measures 2.1 x 2.1 x 0.7 cm. The next largest lymph node measures are 0.9 x 0.9 x 0.8 cm, technically borderline. IMPRESSION: Nonspecific enlarged left lateral lymph nodes. These could be reactive however if they persist after treatment and there is sufficient high clinical concern, further evaluation with ultrasound-guided FNA could be considered. Dictated by: Deric Franks M.D. on 07/30/2018 at 16:37 Approved by: Deric Franks M.D. on 07/30/2018 at 16:40
== END ==
PROVIDERS: PCP Family Medicine; Visit Provider Family Medicine
DX: R59.0 Localized enlarged lymph nodes (principal)
CPT/HCPCS: 76536

== ENCOUNTER → 2018-08-02 14:36 | Outpatient (CLI) | payer OTHER, MEDICAID, SELFPAY ==
[2018-08-02 15:19] LABS: Add Manual Diff / Slide Review NO; Basophils Absolute Auto 0 /uL (0-100); Basophils Percent Auto 0.8 % (0-2); Eosinophils Absolute Auto 0 /uL (0-450); Hematocrit 36.4 % (36-46); Hemoglobin 12.2 g/dL (12.0-16.0); Lymphocytes Absolute Auto 1300 /uL (1100-4500); Lymphocytes Percent Auto 37.5 % (25-40); Mean Corpuscular HGB Conc 33.5 % (30-36); Mean Corpuscular Hemoglobin 27.6 PG (26-34); Mean Corpuscular Volume 82.2 fL (80-100); Monocytes Absolute Auto 400 /uL (0-900); Monocytes Percent Auto 10.8 % (3-14); Neutrophils Absolute Auto 1700 /uL (1500-7000); Neutrophils Percent Auto 49.9 % (50-75); Platelet Count 149 X10^3/uL (150-400); Red Blood Cell Count 4.43 X10^6/uL (4.0-5.2); Red Cell Distribution Width 14.1 % (11.6-14.8); White Blood Cell Count 3.5 X10^3/uL (4.5-11.0)
== END ==
PROVIDERS: PCP Family Medicine; Visit Provider Family Medicine
DX: R59.9 Enlarged lymph nodes, unspecified (principal)
CPT/HCPCS: 36415; 85025

== ENCOUNTER 2018-08-30 07:42 | Emergency (ER) | payer OTHER, MEDICAID, SELFPAY ==
[2018-08-30 07:51] VITALS: BP 131/87; PULSE 145; RESP 16; TEMP 37.1; O2SAT 99; BMI 32.1
--- NOTE | 2018-08-30 08:05 | DI.RAD.S_ITS ---
PROCEDURE: XR CHEST 2V INDICATIONS: Shortness of breath TECHNIQUE: 2 views of the chest were acquired. COMPARISON: None. FINDINGS: Surgical changes and devices: None. Lungs and pleura: Lungs are clear. No pleural effusions or pneumothorax. Mediastinum: Mediastinal contours are normal. Heart size is normal. Bones and chest wall: No suspicious bony abnormalities. Soft tissues appear unremarkable. IMPRESSION: Normal chest plain films. Dictated by: Ab Mohamud M.D. on 08/30/2018 at 7:54 Approved by: Ab Mohamud M.D. on 08/30/2018 at 8:00
[2018-08-30 08:30] LABS: Add Manual Diff / Slide Review NO; Basophils Absolute Auto 0 /uL (0-100); Basophils Percent Auto 1.3 % (0-2); Eosinophils Absolute Auto 100 /uL (0-450); Eosinophils Percent Auto 2.4 % (2-4); Hematocrit 37.3 % (36-46); Hemoglobin 12.9 g/dL (12.0-16.0); Lymphocytes Absolute Auto 900 /uL (1100-4500); Lymphocytes Percent Auto 29.5 % (25-40); Mean Corpuscular HGB Conc 34.5 % (30-36); Mean Corpuscular Hemoglobin 27.9 PG (26-34); Mean Corpuscular Volume 80.8 fL (80-100); Monocytes Absolute Auto 300 /uL (0-900); Monocytes Percent Auto 11.8 % (3-14); Neutrophils Absolute Auto 1600 /uL (1500-7000); Platelet Count 98 X10^3/uL (150-400); Red Blood Cell Count 4.62 X10^6/uL (4.0-5.2); Red Cell Distribution Width 14.1 % (11.6-14.8)
--- NOTE | 2018-08-30 08:31 | ED_ITS ---
HPI - URI/Sore Throat General Chief Complaint: Upper Respiratory Symptoms Stated Complaint: FACE ITCHING,THINGS ON FINGERS Time Seen by Provider: 08/30/18 08:30 Source: patient and old records reviewed Mode of arrival: ambulatory Limitations: no limitations History of Present Illness HPI Narrative: This is a 22-year-old female comes to the emergency department with complaint of rash on her face and fingers. She states it started in August. She also had swollen lymph node in her neck, she has been on antibiotics and this improved. She had ultrasound of lymph node. She then developed a yeast infection her mouth which was treated. She is still taking Valcyte clear and she did receive Diflucan. She states that the rash initially started in her nose. She now has spots all over her face. She is not having any fevers. She did note today that she was very short of breath. she has not noticed that before. She denies any chest pain or pressure, she states she has felt a little lightheaded but no passing out, no nausea no vomiting, no diarrhea or constipation. About a week ago she had some watery diarrhea for several days. No urinary issues. She describes chronically that her bones and thighs and arms feel achy all the time. She has had this rash on her face and small little dots on her extremities. She states her nail seem sort of pale but she states that is not new. She has also had about a 15 lb weight loss. She has been worked up for a giant cell arteritis and had a biopsy which was negative. she has had carpal tunnel surgery in May. She has family history of diabetes and ca ncer. Related Data Previous Rx's Medication Instructions Recorded lidocaine 5 % topical ointment 1 applictn TOP TID PRN #30 gram 08/20/18 valacyclovir 1 gram tablet 1,000 mg PO BID #14 tab 08/20/18 Allergies Allergy/AdvReac Type Severity Reaction Status Date / Time nabumetone AdvReac Mild itchy, Verified 08/20/18 15:02 stomach upset Review of Systems Review of Systems ROS Unobtainable: All systems reviewed & are unremarkable except as noted in HPI and below Constitutional Reports anorexia, Reports body ache(s), Denies chills, Denies excessive sweating, Denies fever(s), Denies lethargy, Denies weakness and Reports weight loss Eyes Reports change in vision ENT Ears, Nose, Mouth, and Throat: Reports other (rash, face/nose) Cardiovascular Denies chest pain, Denies diaphoresis, Denies syncope, Reports rapid heart rate, Denies edema, Denies irregular heart rhythm, Denies claudication, Denies leg edema, Denies lightheadedness, Denies palpitations, Reports dyspnea, Reports dyspnea on exertion and Denies orthopnea Respiratory Denies chest congestion, Denies cough, Denies excessive phlegm production, Denies pain on inspiration, Reports dyspnea, Reports dyspnea on exertion and Denies wheezing Gastrointestinal Gastrointestinal: Denies abdominal pain, Denies change in bowel habits, Denies diarrhea, Denies nausea and Denies vomiting Genitourinary Denies hematuria, Denies urinary frequency, Denies dysuria, Denies flank pain and Denies urinary urgency Musculoskeletal Reports as per HPI, Reports back pain, Reports myalgias (shoulders and thighs), Denies arthralgias, Denies joint swelling, Reports muscle cramps, Denies numbness, Reports stiffness and Denies tingling Integumentary/Breasts Reports as per HPI and Reports rash Neurologic Denies syncope, Denies numbness, Denies tingling and Denies weakness Endocrine Denies excessive sweating and Denies palpitations Allergic/Immunologic Denies wheezing [facility] Medical History Hypothyroidism (Chronic) Chronic headache disorder (Chronic) Surgical History History of carpal tunnel release (Resolved) Family History (Updated 06/23/18 @ 12:29 by Jessica Lepe PA-C) Other Family history non-contributory Social History marital status: unmarried,single household members: family pets and animals: Yes seatbelt use: always working smoke detector in home: Yes carbon monox detector in home: Yes Smoking Status: Never smoker alcohol intake: current during the past year weight has: decreased > 10 lbs well-balanced diet: daily or most days daily servings fruits/ve-1 caffeine: Yes eating out: rarely or never Social History marital status: unmarried,single household members: family pets and animals: Yes seatbelt use: always working smoke detector in home: Yes carbon monox detector in home: Yes Smoking Status: Never smoker alcohol intake: current during the past year weight has: decreased > 10 lbs well-balanced diet: daily or most days daily servings fruits/ve-1 caffeine: Yes eating out: rarely or never Exam Narrative Exam Narrative: GEN: well nourished, well appearing female, alert and oriented x 3, patient appears to be in moderate distress. HEENT: Atraumatic, pupils are equal round reactive to light, extraocular movemen ts are intact, nares are clear except for some crusting and erythema just inside the nose,, TMs are clear with no fluid, there is no conjunctival pallor. Throat is clear without any exudates, erythema, tonsillar enlargement or uvular deviation, patient has multiple slightly erythematous, hyperpigmented lesions on her face diffusely, they are slightly raised. There is no pustules or vesicles. HEART: Regular rate and rhythm without murmur, clicks, rubs. LUNGS:Lungs clear to auscultation, no wheezes, rales, crackles, chest moves symmetrically ABD:bowel sounds normal, soft, non-tender, no guarding, rebound, rigidity, no masses noted, no hepatosplenomegaly :No CVA tenderness MSCL: Non-tender, no muscle atrophy, muscles strength 5/5 upper and lower extremities, full range of motion, normal gait NEURO:CN 2-12 intact, sensation normal SKIN: Patient has some small slightly raised erythematous bumps on her hands and upper extremities. Initial Vital Signs Initial Vital Signs: Vital Signs Temperature 98.7 F 08/30/18 07:51 Pulse Rate 145 H 08/30/18 07:51 Respiratory Rate 16 08/30/18 07:51 Blood Pressure 131/87 08/30/18 07:51 Pulse Oximetry 99 08/30/18 07:51 Scores HEART Score Heart Score history: Moderately Suspicious Heart Score EKG: Non-Specific repolarization disturbance Heart Score Age: < 45 years old Heart Score risk factors: No known risk factors Heart Score troponin: < or = to normal limit Heart Score Total: 2 PERC Score Age greater than or equal to 50 years: No Heart rate greater than or equal to 100 bpm: Yes Room Air O2 Sat less than 95%: No Unilateral leg swelling: No Recent trauma or surgery: No Hemoptysis: No Prior PE or DVT: No Hormone Use: No Total PERC Score: 1 Course Orders Ordered: ED Orders 08/30/18 11:02 periph venous low extrem bi Stat 08/30/18 12:44 Urine Microscopic Stat Discontinued Medications Sodium Chloride (Normal Saline 0.9%) 1,000 mls @ 1,000 mls/hr IV BOLUS ONE Stop: 08/30/18 10:20 Last Infusion: 08/30/18 13:04 Dose: 0 mls/hr Admin: 08/30/18 09:27 Dose: 1,000 mls/hr Sodium Chloride (Normal Saline 0.9%) 1,000 mls @ 1,000 mls/hr IV BOLUS ONE Stop: 08/30/18 13:27 Last Infusion: 08/30/18 14:32 Dose: 0 mls/hr Admin: 08/30/18 13:11 Dose: 1,000 mls/hr Vital Signs - 8 hr 08/30/18 12:00 08/30/18 14:33 Pulse Rate 94 H 72 Respiratory Rate 23 16 Blood Pressure 113/85 Blood Pressure [Right Arm] 112/69 Pulse Oximetry 100 100 MDM - URI/Sore Throat Lab Data Attestation: I reviewed the patient's lab results. Result diagrams: 08/30/18 08:22 08/30/18 08:22 Lab Results 08/30/18 08/30/18 08/30/18 Range/Units 08:22 08:22 08:22 WBC 3.0 L (4.5-11.0) X10^3/uL RBC 4.62 (4.0-5.2) X10^6/uL Hgb 12.9 (12.0-16.0) g/dL Hct 37.3 (36-46) % MCV 80.8 (80-100) fL MCH 27.9 (26-34) PG MCHC 34.5 (30-36) % RDW 14.1 (11.6-14.8) % Plt Count 98 L (150-400) X10^3/uL Neut % (Auto) 55.0 (50-75) % Lymph % (Auto) 29.5 (25-40) % Harper % (Auto) 11.8 (3-14) % Eos % (Auto) 2.4 (2-4) % Baso % (Auto) 1.3 (0-2) % Neut # (Auto) 1600 (7784-0150) /uL Lymph # (Auto) 900 L (4898-0736) /uL Harper # (Auto) 300 (0-900) /uL Eos # (Auto) 100 (0-450) /uL Baso # (Auto) 0 (0-100) /uL PT 13.8 H (10.1-12.7) SECONDS INR 1.2 (0.9-1.3) APTT 29 (26.4-36.2) SECONDS D-Dimer 1608 H (<230) ng/mL Sodium (137-145) mmol/L Potassium (3.4-5.1) mmol/L Chloride (98-107) mmol/L Carbon Dioxide (22-32) mmol/L BUN (7-17) mg/dL Creatinine (0.52-1.04) mg/dL Estimated GFR (>60) mL/min BUN/Creatinine Ratio (6-22) Glucose (70-100) mg/dL Lactate (0.7-2.1) mmol/L Calcium (8.4-10.2) mg/dL Total Bilirubin (0.2-1.3) mg/dL AST (14-36) IU/L ALT (9-52) IU/L Alkaline Phosphatase (38-126) U/L Total Creatine Kinase 47 (30-135) U/L CK-MB (CK-2) TNP CK-MB (CK-2) Rel Index TNP Troponin I 0.021 (0.01-0.034) ng/mL B-Natriuretic Peptide < 100 (<100) Total Protein (6.3-8.2) g/dL Albumin (3.5-5.0) g/dL Globulin (1.7-4.1) g/dL Albumin/Globulin Ratio (1.0-2.8) TSH (0.47-4.68) uIU/mL HCG, Quant mIU/mL Urine RBC (0-5/HPF) Urine WBC (0-5/HPF) Ur Squamous Epith Cells (0-5/HPF) Urine Bacteria (None) Ur Culture Indicated? 04/11/19 04/11/19 04/11/19 Range/Units 08:22 08:22 08:22 WBC (4.5-11.0) X10^3/uL RBC (4.0-5.2) X10^6/uL Hgb (12.0-16.0) g/dL Hct (36-46) % MCV (80-100) fL MCH (26-34) PG MCHC (30-36) % RDW (11.6-14.8) % Plt Count (150-400) X10^3/uL Neut % (Auto) (50-75) % Lymph % (Auto) (25-40) % Harper % (Auto) (3-14) % Eos % (Auto) (2-4) % Baso % (Auto) (0-2) % Neut # (Auto) (9875-8533) /uL Lymph # (Auto) (2641-5255) /uL Harper # (Auto) (0-900) /uL Eos # (Auto) (0-450) /uL Baso # (Auto) (0-100) /uL PT (10.1-12.7) SECONDS INR (0.9-1.3) APTT (26.4-36.2) SECONDS D-Dimer (<230) ng/mL Sodium 139 (137-145) mmol/L Potassium 3.6 (3.4-5.1) mmol/L Chloride 101 (98-107) mmol/L Carbon Dioxide 27 (22-32) mmol/L BUN 7 (7-17) mg/dL Creatinine 0.70 (0.52-1.04) mg/dL Estimated GFR > 60.0 (>60) mL/min BUN/Creatinine Ratio 10.0 (6-22) Glucose 102 H (70-100) mg/dL Lactate 1.4 (0.7-2.1) mmol/L Calcium 9.3 (8.4-10.2) mg/dL Total Bilirubin 0.7 (0.2-1.3) mg/dL AST 46 H (14-36) IU/L ALT 32 (9-52) IU/L Alkaline Phosphatase 68 (38-126) U/L Total Creatine Kinase (30-135) U/L CK-MB (CK-2) CK-MB (CK-2) Rel Index Troponin I (0.01-0.034) ng/mL B-Natriuretic Peptide (<100) Total Protein 8.9 H (6.3-8.2) g/dL Albumin 4.3 (3.5-5.0) g/dL Globulin 4.6 H (1.7-4.1) g/dL Albumin/Globulin Ratio 0.9 L (1.0-2.8) TSH (0.47-4.68) uIU/mL HCG, Quant < 2.39 mIU/mL Urine RBC (0-5/HPF) Urine WBC (0-5/HPF) Ur Squamous Epith Cells (0-5/HPF) Urine Bacteria (None) Ur Culture Indicated? 08/30/18 08/30/18 Range/Units 08:25 12:44 WBC (4.5-11.0) X10^3/uL RBC (4.0-5.2) X10^6/uL Hgb (12.0-16.0) g/dL Hct (36-46) % MCV (80-100) fL MCH (26-34) PG MCHC (30-36) % RDW (11.6-14.8) % Plt Count (150-400) X10^3/uL Neut % (Auto) (50-75) % Lymph % (Auto) (25-40) % Harper % (Auto) (3-14) % Eos % (Auto) (2-4) % Baso % (Auto) (0-2) % Neut # (Auto) (0660-0416) /uL Lymph # (Auto) (0178-0747) /uL Harper # (Auto) (0-900) /uL Eos # (Auto) (0-450) /uL Baso # (Auto) (0-100) /uL PT (10.1-12.7) SECONDS INR (0.9-1.3) APTT (26.4-36.2) SECONDS D-Dimer (<230) ng/mL Sodium (137-145) mmol/L Potassium (3.4-5.1) mmol/L Chloride (98-107) mmol/L Carbon Dioxide (22-32) mmol/L BUN (7-17) mg/dL Creatinine (0.52-1.04) mg/dL Estimated GFR (>60) mL/min BUN/Creatinine Ratio (6-22) Glucose (70-100) mg/dL Lactate (0.7-2.1) mmol/L Calcium (8.4-10.2) mg/dL Total Bilirubin (0.2-1.3) mg/dL AST (14-36) IU/L ALT (9-52) IU/L Alkaline Phosphatase (38-126) U/L Total Creatine Kinase (30-135) U/L CK-MB (CK-2) CK-MB (CK-2) Rel Index Troponin I (0.01-0.034) ng/mL B-Natriuretic Peptide (<100) Total Protein (6.3-8.2) g/dL Albumin (3.5-5.0) g/dL Globulin (1.7-4.1) g/dL Albumin/Globulin Ratio (1.0-2.8) TSH 13.20 H (0.47-4.68) uIU/mL HCG, Quant mIU/mL Urine RBC None seen (0-5/HPF) Urine WBC None seen (0-5/HPF) Ur Squamous Epith Cells 5-10 /hpf H (0-5/HPF) Urine Bacteria Few (2-10) H (None) Ur Culture Indicated? Cult not indicated Urine Dip Bedside Urine Glucose Negative Bedside Urine Bilirubin - Negative Bedside Urine Ketone +++ 80 Urine Specific [place] 1.005 Bedside Urine Occult Blood - Negative Bedside Urine pH 6.5 Bedside Urine Protein +/- 15 Bedside Urine Urobilinogen +/- 1mg Bedside Urine Nitrite - Negative Bedside Urine Leukocytes - Negative Esterase Imaging Data Chest x-ray: Radiologist's impression: [address] [address] XRay Report Signed Patient: Tevin John#: [id number] : 1995Acct:[id number] Age/Sex: 22 / FDate of Service: 08/30/18 Loc: ED Accession Number: [id number] Procedure: XR chest 2V Ordering Provider: Daniela Vilchis D.O. PROCEDURE: XR CHEST 2V INDICATIONS: Shortness of breath TECHNIQUE: 2 views of the chest were acquired. COMPARISON: None. FINDINGS: Surgical changes and devices: None. Lungs and pleura: Lungs are clear. No pleural effusions or pneumothorax. Mediastinum: Mediastinal contours are normal. Heart size is normal. Bones and chest wall: No suspicious bony abnormalities. Soft tissues appear unremarkable. IMPRESSION: Normal chest plain films. Dictated by: Ab Mohamud M.D. on 08/30/2018 at 7:54 Approved by: Ab Mohamud M.D. on 08/30/2018 at 8:00 chest CTA: Radiologist's impression: Elis John 22 F 1995 [place] [address] CT Scan Report Signed Patient: Elis JohnMR#: [id number] : 1995Acct:[id number] Age/Sex: 22 / FDate of Service: 08/30/18 Loc: ED Accession Number: [id number] Procedure: CT angio chest PE protocol Ordering Provider: Daniela Vilchis D.O. PROCEDURE: CT ANGIO CHEST PE PROTOCOL INDICATIONS: shortness of breath TECHNIQUE: After the administration of intravenous contrast, 2 mm thick sections acquired from the pulmonary apices to the posterior costophrenic angles. 3-dimensional maximum intensity projection (MIP) coronal and sagittal reformats were then acquired through the thorax. For radiation dose reduction, the following was used: automated exposure control, adjustment of mA and/or kV according to patient size. COMPARISON: None. FINDINGS: Image quality: Excellent. Pulmonary arteries: Pulmonary arteries are normal in size, and demonstrate no intraluminal filling defects to suggest central pulmonary embolism. Lungs and pleura: Minimally diminished lung volumes bilaterally with minimal bibasilar atelectasis. Lungs are otherwise clear. No pleural effusions or pneumothorax. Central and peripheral airways are patent. Mediastinum: Heart size is normal, without pericardial effusion. No mediastinal or hilar adenopathy. Thoracic aorta is normal in caliber and enhancement. Esophagus is normal in caliber, without hiatal hernia. Bones and chest wall: No suspicious bony lesions. Ribs and thoracic spine appear intact throughout. Thyroid gland is unremarkable. No axillary or supraclavicular adenopathy. Incompletely imaged 1.6 cm oval density in the lateral left breast likely representing a complicated cyst versus fibroadenoma. Abdomen: Visualized upper abdominal solid organs appear normal in the early arterial phase of enhancement. IMPRESSION: 1. CT chest without acute cardiopulmonary abnormalities. Specifically, no acute pulmonary emboli. 2. Incompletely characterized 1.6 cm oval density in the lateral left breast. This likely represents a complicated cyst versus fibroadenoma. Recommend further evaluation with outpatient left breast ultrasound. Dictated by: Walt Martino M.D. on 08/30/2018 at 10:27 Approved by: Walt Martino M.D. on 08/30/2018 at 10:40 b/l DVT us: Radiologist's impression: Elis John 22 F 1995 [place] [address] Ultrasound Report Signed Patient: Elis JohnMR#: [id number] : 1995Acct:[id number] Age/Sex: 22 / FDate of Service: 08/30/18 Loc: ED Accession Number: [id number] Procedure: US periph venous low extrem bi Ordering Provider: Daniela Vilchis D.O. PROCEDURE: US PERIPH VENOUS LOW EXTREM BI INDICATIONS: MUSCLE ACHES; ELEVATED D-DIMER TECHNIQUE: Real-time imaging, as well as color and pulse Doppler interrogation, were performed of the deep veins of both legs from the inguinal ligament to the popliteal fossa. COMPARISON: None. FINDINGS: Right: The common femoral, femoral and popliteal veins are normally compressible, and free of intraluminal thrombus. Color and pulse Doppler demonstrate normal phasic intravascular flow. There is normal augmentation response to distal compression maneuver. Left: The common femoral, femoral and popliteal veins are normally compressible, and free of intraluminal thrombus. Color and pulse Doppler demonstrate normal phasic intravascular flow. There is normal augmentation response to distal compression maneuver. IMPRESSION: No evidence of deep vein thrombosis within the bilateral lower extremities. Dictated by: Carlos Arriaga M.D. on 08/30/2018 at 10:39 Approved by: Carlos Arriaga M.D. on 08/30/2018 at 10:40 ECG Data Attestation: I personally reviewed and interpreted this ECG as follows: Prior ECG tracings: not available for review Interpretation: Sinus tachycardia with short SC interval, rate of 118 SC interval 116 QRS 82 and QTC of 392. Patient has T-wave inversion in 3 and AVF, as well as some depression in V1 through V4. MDM Narrative Medical decision making narrative: Patient's chart was reviewed she has been evaluated for giant cell arteritis, she has persistent leukopenia, platelets appear to be dropping, she has prior CRP and ESR that were elevated in March of 2018, D-dimer today is 1600 with a slight elevation of PT of 13.8, chemistry shows glucose of troponin is negative at 0.021. She has the elevated total protein and globulin, patient has had RPR, urine chlamydia/gonorrhea, hepatitis AB and C as well as HIV and December of 2017 which were all negative. TSH was ordered as patient has not had a recent since December. CXR is negative. Patient and I discussed and other than shortness of breath no clear risk factors but concern for PE and CT PE protocol ordered. CT is negative except for density on the left breast which was discussed with patient as well as need for ultrasound for follow-up, bilateral ultrasound for DVT is negative. Spoke with Dr. Mills who is covering for Dr. Singh. Patient becomes tachy up to 130 while ambulating. Otherwise feeling better. Reviewed lab work, imaging with Dr. Mills at this time he does not feel patient needs to be admitted but is happy to follow up with her. She did stop her thyroid medication a couple months ago so we discussed restarting it. Although this should not make her tachycardic or cause her shortness of breath. he is happy to follow with the patient help make sure she gets an echo as well as further workup. Discussed at length with patient I would suspect that patient has either some sort of autoimmune, Hematologic process or other cause. Patient is comfortable with this plan. And will follow up. Discharge Plan Departure Patient Disposition: Home Clinical Impression: Rash, Left breast mass Dyspnea Qualifiers: Dyspnea type: unspecified Qualified Code(s): R06.00 - Dyspnea, unspecified Discharge Date/Time: 08/30/18 14:34 Interventions: ED Discharge Assessment Last Done: 08/30/18 14:33 Instructions: DI for Shortness of Breath Activity Restrictions/Additional Instructions: Call today to set up follow-up appointment for tomorrow with Dr. Singh. Let the office know that Dr. Mills would like you seen. Discussed with Dr. Singh about possibly getting an ECHO regarding your shortness of breath and changes on her lab work. Restarting your thyroid medication, TSH is elevated today. Your CT of your chest does not show any blood clots or other changes the sides a 1.6 cm density on the left breast, it is likely a cyst or fibroadenoma but should have ultrasound to rule out other causes. You may also wish to discuss seeing a sociology faculty member or asset recovery specialist in the future and if this would be a good choice. You may continue your home medications as prescribed Return to the emergency department for any worsening symptoms, new chest pain, shortness of breath that is worsening, passing out, lightheadedness, persistent vomiting, black or bloody stools or other new or concerning symptoms. Prescriptions: No Action valacyclovir 1 gram tablet 1,000 mg PO BID Qty: 14 RF: 0 lidocaine 5 % ointment 1 applictn TOP TID PRN (Reason: Nasal discomfort) Qty: 30 RF: 0 Referrals: Frida Singh MD [Primary Care Provider] - Stand Alone Forms: Work Release Note
[2018-08-30 08:35] LABS: INR 1.2 (0.9-1.3); Prothrombin Time 13.8 SECONDS (10.1-12.7)
[2018-08-30 08:38] LABS: PTT Partial Thromboplastin Tim 29 SECONDS (26.4-36.2)
[2018-08-30 08:42] LABS: Alanine Aminotransferase 32 IU/L (9-52); Albumin 4.3 g/dL (3.5-5.0); Albumin Globulin Ratio 0.9 (1.0-2.8); Alkaline Phosphatase 68 U/L (38-126); Aspartate Aminotransferase 46 IU/L (14-36); Bilirubin Total 0.7 mg/dL (0.2-1.3); Blood Urea Nitrogen 7 mg/dL (7-17); Calcium 9.3 mg/dL (8.4-10.2); Carbon Dioxide 27 mmol/L (22-32); Chloride 101 mmol/L (98-107); Creatine Kinase 47 U/L (30-135); Estimated Glomerular Filt Rate > 60.0 mL/min (>60); Globulin 4.6 g/dL (1.7-4.1); Glucose 102 mg/dL (70-100); HEMOLYSIS 36 (0-50); Potassium 3.6 mmol/L (3.4-5.1); Sodium 139 mmol/L (137-145); Total Protein 8.9 g/dL (6.3-8.2)
[2018-08-30 08:43] LABS: Lactate (Lactic Acid) 1.4 mmol/L (0.7-2.1)
[2018-08-30 08:45] LABS: D Dimer 1608 ng/mL (<230)
[2018-08-30 08:52] LABS: B Type Natriuretic Peptide < 100 (<100)
[2018-08-30 08:53] LABS: Troponin I 0.021 ng/mL (0.01-0.034)
[2018-08-30 09:14] VITALS: BP 119/73; PULSE 102; RESP 23; O2SAT 98
[2018-08-30] MEDS: SODIUM CHLORIDE 0.9% 1,000 ML 1000 ML IV ×2 (09:27→13:11)
--- NOTE | 2018-08-30 09:27 | DI.CT.S_ITS ---
PROCEDURE: CT ANGIO CHEST PE PROTOCOL INDICATIONS: shortness of breath TECHNIQUE: After the administration of intravenous contrast, 2 mm thick sections acquired from the pulmonary apices to the posterior costophrenic angles. 3-dimensional maximum intensity projection (MIP) coronal and sagittal reformats were then acquired through the thorax. For radiation dose reduction, the following was used: automated exposure control, adjustment of mA and/or kV according to patient size. COMPARISON: None. FINDINGS: Image quality: Excellent. Pulmonary arteries: Pulmonary arteries are normal in size, and demonstrate no intraluminal filling defects to suggest central pulmonary embolism. Lungs and pleura: Minimally diminished lung volumes bilaterally with minimal bibasilar atelectasis. Lungs are otherwise clear. No pleural effusions or pneumothorax. Central and peripheral airways are patent. Mediastinum: Heart size is normal, without pericardial effusion. No mediastinal or hilar adenopathy. Thoracic aorta is normal in caliber and enhancement. Esophagus is normal in caliber, without hiatal hernia. Bones and chest wall: No suspicious bony lesions. Ribs and thoracic spine appear intact throughout. Thyroid gland is unremarkable. No axillary or supraclavicular adenopathy. Incompletely imaged 1.6 cm oval density in the lateral left breast likely representing a complicated cyst versus fibroadenoma. Abdomen: Visualized upper abdominal solid organs appear normal in the early arterial phase of enhancement. IMPRESSION: 1. CT chest without acute cardiopulmonary abnormalities. Specifically, no acute pulmonary emboli. 2. Incompletely characterized 1.6 cm oval density in the lateral left breast. This likely represents a complicated cyst versus fibroadenoma. Recommend further evaluation with outpatient left breast ultrasound. Dictated by: Walt Martino M.D. on 08/30/2018 at 10:27 Approved by: Walt Martino M.D. on 08/30/2018 at 10:40
[2018-08-30 10:00] VITALS: BP 111/74; PULSE 95; RESP 18; O2SAT 98
[2018-08-30 10:01] LABS: HCG Quantitative /Beta subunit < 2.39 mIU/mL
--- NOTE | 2018-08-30 11:02 | DI.US.S_ITS ---
PROCEDURE: US PERIPH VENOUS LOW EXTREM BI INDICATIONS: MUSCLE ACHES; ELEVATED D-DIMER TECHNIQUE: Real-time imaging, as well as color and pulse Doppler interrogation, were performed of the deep veins of both legs from the inguinal ligament to the popliteal fossa. COMPARISON: None. FINDINGS: Right: The common femoral, femoral and popliteal veins are normally compressible, and free of intraluminal thrombus. Color and pulse Doppler demonstrate normal phasic intravascular flow. There is normal augmentation response to distal compression maneuver. Left: The common femoral, femoral and popliteal veins are normally compressible, and free of intraluminal thrombus. Color and pulse Doppler demonstrate normal phasic intravascular flow. There is normal augmentation response to distal compression maneuver. IMPRESSION: No evidence of deep vein thrombosis within the bilateral lower extremities. Dictated by: Carlos Arriaga M.D. on 08/30/2018 at 10:39 Approved by: Carlos Arriaga M.D. on 08/30/2018 at 10:40
[2018-08-30 12:00] VITALS: BP 112/69; PULSE 94; RESP 23; O2SAT 100
[2018-08-30 12:45] LABS: RBC Urine None Seen (0-5/HPF); WBC Urine None Seen (0-5/HPF)
[2018-08-30 13:03] LABS: Bacteria Urine Few (2-10); Culture Indicated Urine Cult Not Indicated; Squamous Epithelial Cell Urine 5-10 /HPF (0-5/HPF)
[2018-08-30 14:33] VITALS: BP 113/85; PULSE 72; RESP 16; O2SAT 100
== END 2018-08-30 14:34 | disposition home or self-care (01) ==
PROVIDERS: Emergency Provider Emergency Medicine; PCP Family Medicine
DX: N63.20 Unspecified lump in the left breast, unspecified quadrant (principal); R21 Rash and other nonspecific skin eruption; R06.02 Shortness of breath; R42 Dizziness and giddiness; E03.9 Hypothyroidism, unspecified; R59.9 Enlarged lymph nodes, unspecified
CPT/HCPCS: 36591; 71046; 71275; 80053; 81003; 81015; 82550; 83605; 83880; 84443; 84484; 84702; 85025; 85379; 85610; 85730; 93005; 93010; 93970; 96360; 96361; 99284; 99285; Q9967

== ENCOUNTER → 2018-08-31 10:50 | Outpatient (CLI) | payer OTHER, MEDICAID, SELFPAY | PROVIDERS: PCP Family Medicine; Visit Provider Registered Nurse | DX: R21 Rash and other nonspecific skin eruption (principal) | CPT/HCPCS: 87070; 87077; 87186; 87205 ==

== ENCOUNTER → 2018-09-04 14:56 | Outpatient (CLI) | payer OTHER, MEDICAID, SELFPAY ==
--- NOTE | 2018-09-04 14:58 | DI.US.S_ITS ---
LIMITED ULTRASOUND OF LEFT BREAST AND AXILLA: 09/04/2018 CLINICAL: Additional evaluation requested from prior study. Correlation is made with a CT pulmonary angiogram from 08/30/2018 which identified a soft tissue mass in the left breast. Real-time and Doppler ultrasound of the left breast 11-6 o'clock, and axilla regions were performed. Larson scale images of the real-time examination were reviewed. Correlation is made with a CT pulmonary angiogram from 08/30/2018 which identified a soft tissue mass in the left breast. Targeted ultrasound of the left breast demonstrates a correlating 1.5 x 1.2 x 1.1 cm oval circumscribed hypoechoic mass in the left breast at 11:00 position 4 cm from the nipple which demonstrates mild posterior acoustic enhancement and mild internal vascularity on Doppler ultrasound. Targeted ultrasound of the left axilla demonstrates a left axillary lymph node with mild cortical thickening but preserved fatty hilum and expected mild hilar vascularity on Doppler ultrasound. 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 A followup ultrasound in 6 months is recommended to demonstrate stability and to exclude an underlying fibroepithelial lesion/phyllodes tumor. Alternatively, this mass can be biopsied per patient preference. 2) Mild cortical thickening of a left axillary lymph node; recommend attention on the follow-up ultrasound recommended above. 3) The patient is advised to monitor her breasts and to return sooner for re-evaluation should she feel anything grow or change. This exam was interpreted at Station ID: [id number]. Electronically Signed By: Eleazar Jeffrey M.D. ecl/:09/05/2018 06:48:34 letter sent: Followup Recommended Ultrasound BI-RADS: 3 Probably benign
== END ==
PROVIDERS: PCP Family Medicine; Visit Provider Registered Nurse
DX: N63.20 Unspecified lump in the left breast, unspecified quadrant (principal)
CPT/HCPCS: 76642

== ENCOUNTER 2018-09-18 07:14 | Emergency (ER) | payer OTHER, MEDICAID, SELFPAY ==
[2018-09-18 07:22] VITALS: BP 125/78; PULSE 111; RESP 18; TEMP 37.6; O2SAT 100
[2018-09-18 07:29] VITALS: BP 125/78; PULSE 111; RESP 18; TEMP 37.6; O2SAT 100
--- NOTE | 2018-09-18 08:09 | ED_ITS ---
HPI - Allergic Reaction General Chief complaint: Allergic Reaction Stated complaint: Hives & Fever Time Seen by Provider: 09/18/18 07:32 Source: patient Mode of arrival: ambulatory Limitations: no limitations History of Present Illness HPI narrative: Patient comes to the emergency department complaining of itchy rash that started yesterday. Patient states she has been dealing with skin infection on her face, and that she just finished a course of antibiotics for this. She says it begins with a C, but she is not exactly sure which 1 she was on. She states that she is very sensitive to antibiotics, and that it seems like every time she finishes an antibiotic, she breaks out in a rash. Patient states this happened with Augmentin previously. Patient states that it started on her arms and was itching, and then she noticed that her face was red and very itchy. She states now she has ?bumps? on her chest. Patient denies any oral or facial swelling. No tightness in her throat. No difficulty breathing. No sore throat. Patient states she was well before the rash broke out. Patient states her only other medical problem is hypothyroidism. Patient denies any exposures to anything else she can think of. No new lotions, soaps, or detergents. No other medications that are new. She states her Synthroid dose was increased about 3 weeks ago, but she has not had a problem with any sort of outbreak from this, and has been on Synthroid for an extended period of time. No new foods. No other complaints at this time. Related Data Previous Rx's Medication Instructions Recorded levothyroxine 125 mcg tablet 125 mcg PO DAILY #60 tab 08/31/18 metronidazole 0.75 % topical cream 1 applictn TOP BID #45 gram 08/31/18 clindamycin HCl 300 mg capsule 300 mg PO TID #21 cap 09/07/18 diphenhydramine HCl [Benadryl] 50 mg PO Q6-8H PRN #20 cap 09/18/18 ranitidine HCl 300 mg PO DAILY #6 cap 09/18/18 Allergies Allergy/AdvReac Type Severity Reaction Status Date / Time nabumetone AdvReac Mild itchy, Verified 09/19/18 15:24 stomach upset Review of Systems Constitutional Denies chills, Denies fever(s), Denies lethargy and Denies weakness Eyes Denies change in vision, Denies eye discharge, Denies irritation and Denies loss of vision ENT Ears, Nose, Mouth, and Throat: Denies change in voice, Denies neck pain and Denies sore throat Cardiovascular Denies chest pain, Denies irregular heart rhythm, Denies lightheadedness, Denies palpitations, Denies dyspnea, Denies dyspnea on exertion and Denies orthopnea Respiratory Denies cough, Denies dyspnea, Denies dyspnea on exertion and Denies wheezing Gastrointestinal Gastrointestinal: Denies abdominal pain, Denies change in bowel habits, Denies diarrhea, Denies nausea and Denies vomiting Genitourinary Denies hematuria, Denies flank pain, Denies urinary incontinence and Denies urinary urgency Musculoskeletal Denies neck pain Integumentary/Breasts Reports pruritus, Denies erythema, Reports rash and Denies wounds Neurologic Denies confusion, Denies loss of vision and Denies weakness Psychiatric Denies anxiety, Denies confusion, Denies depression, Denies homicidal ideation and Denies suicidal ideation Endocrine Denies palpitations Hematologic/Lymphatic Denies easy bruising Allergic/Immunologic Denies wheezing [facility] [place] Medical History Hypothyroidism (Chronic) Chronic headache disorder (Chronic) Surgical History History of carpal tunnel release (Resolved) Family History (Updated 06/23/18 @ 12:29 by Jessica Lepe PA-C) Other Family history non-contributory Social History marital status: unmarried,single household members: family pets and animals: Yes seatbelt use: always working smoke detector in home: Yes carbon monox detector in home: Yes Smoking Status: Never smoker alcohol intake: current substance use type: does not use during the past year weight has: decreased > 10 lbs well-balanced diet: daily or most days daily servings fruits/ve-1 caffeine: Yes eating out: rarely or never Family History Other Family history non-contributory Social History marital status: unmarried,single household members: family pets and animals: Yes seatbelt use: always working smoke detector in home: Yes carbon monox detector in home: Yes Smoking Status: Never smoker alcohol intake: current substance use type: does not use during the past year weight has: decreased > 10 lbs well-balanced diet: daily or most days daily servings fruits/ve-1 caffeine: Yes eating out: rarely or never Exam Initial Vital Signs Initial Vital Signs: Vital Signs Temperature 99.7 F H 09/18/18 07:22 Pulse Rate 111 H 09/18/18 07:22 Respiratory Rate 18 09/18/18 07:22 Blood Pressure 125/78 09/18/18 07:22 Pulse Oximetry 100 09/18/18 07:22 Const General: cooperative and well developed Nutritional Appearance: well nourished Orientation: alert, awake, oriented x3 and not confused HENMT Head: normal to inspection (No oropharyngeal swelling. No facial swelling.), normocephalic and atraumatic Ears: external ears normal Nose: external nose normal and No nasal discharge Face and sinus: face symmetric and No dry mucous membranes Mouth: oral mucosae normal and moist mucous membranes Teeth and gingiva: dentition normal Eyes General: appearance normal, both eyes and all related structures Eyelids: eyelids normal Conjunctivae: conjunctivae normal Sclera: sclerae normal Pupils: PERRL EOM: EOM intact bilaterally Neck Neck: normal visual inspection, trachea midline, No lymphadenopathy, No midline deformity and No JVD Lymphatic: No lymphedema Chest Chest: normal inspection of the chest Resp Effort & Inspection: normal respiratory effort, able to speak in complete sentences, no respiratory distress and no use of accessory muscles Auscultation: clear to auscultation bilaterally, no rales, no rhonchi and no wheezes Cardio Rate: regular rate Rhythm: regular rhythm Heart Sounds: no click, no gallops, no murmurs and no rubs Pulses: normal peripheral pulses GI Inspection: non-distended Palpation: soft, no hepatosplenomegaly, No guarding, No pulsatile mass and No tender Auscultation: normal bowel sounds Back/Spine/Pelvis Back: No CVA tenderness Cervical Spine: cervical ROM normal and No pain with cervical ROM Thoracic/Lumbar Spine: thoracic and lumbar spine normal to inspection Skin General: no rashes or lesions noted, No jaundice and No petechiae Other: Patient has an urticarial maculopapular rash extensively on bilateral arms, but more so on the left arm. Patient has scabbed lesions on her face, which appear to be healing. Neuro General: alert, oriented x3, gait normal and no focal motor deficits Speech: speech normal Extrem General: full ROM, no clubbing, cyanosis or edema, no pedal edema and no calf tenderness Psych Appearance: well kempt Mental Status: mental status grossly normal Attitude: cooperative Thought Content: normal and suicidality Judgment: judgment good Course Course Narrative: At her request, patient was given p.o. instead of IV Benadryl. Patient also declined steroids, stating that they make her feel ?weird?. I felt this was reasonable, as at this point, patient does not have anaphylaxis or evidence of impending anaphylaxis. However, we have discussed the patient may need to take steroids if her reaction continues to worsen, and I will write her prescription for these, just in case. Patient is otherwise well, and has no other symptoms besides the itchy rash. The appearance of the rash is consistent with urticaria and macular/papular, and has the appearance of an allergic rash. We have discussed the usual indications for return, however, if symptoms wor se, or if new, concerning symptoms develop. Orders Ordered: Discontinued Medications Diphenhydramine HCl (Benadryl) 50 mg PO NOW ONE Stop: 09/18/18 08:05 Last Admin: 09/18/18 08:26 Dose: 50 mg Vital Signs - 8 hr 09/18/18 07:22 09/18/18 07:29 Temperature 99.7 F H 99.7 F H Pulse Rate 111 H 111 H Respiratory Rate 18 18 Blood Pressure 125/78 Blood Pressure [Left Arm] 125/78 Pulse Oximetry 100 100 Discharge Plan Departure Patient Disposition: Home Clinical Impression: Allergic reaction Discharge Date/Time: 09/18/18 08:33 Interventions: ED Discharge Assessment Last Done: 09/18/18 08:29 Instructions: DI for Adverse Drug Reaction -- Allergic Prescriptions: New diphenhydramine HCl [Benadryl] 25 mg capsule 50 mg PO Q6-8H PRN (Reason: allergic reaction) Qty: 20 RF: 0 ranitidine HCl 150 mg capsule 300 mg PO DAILY Qty: 6 RF: 0 No Action metronidazole 0.75 % cream 1 applictn TOP BID Qty: 45 RF: 0 levothyroxine 125 mcg tablet 125 mcg PO DAILY Qty: 60 RF: 0 clindamycin HCl 300 mg capsule 300 mg PO TID Qty: 21 RF: 0 Referrals: Frida Singh MD [Primary Care Provider] -
[2018-09-18 08:19] VITALS: BP 116/81; PULSE 103; RESP 18; O2SAT 98
[2018-09-18] MEDS: diphenhydrAMINE 25 MG TABLET 50 MG PO (08:26)
== END 2018-09-18 08:33 | disposition home or self-care (01) ==
PROVIDERS: Emergency Provider Emergency Medicine; PCP Family Medicine
DX: T78.40XA Allergy, unspecified, initial encounter (principal)
CPT/HCPCS: 99282

== ENCOUNTER 2018-09-19 15:11 | Emergency (ER) | payer OTHER, MEDICAID, SELFPAY ==
[2018-09-19] VITALS (9 sets, daily range): BP systolic 100–127; BP diastolic 58–98; PULSE 75–137; RESP 17–24; TEMP 37.4–39.2; O2SAT 98–100; BMI 29.8
--- NOTE | 2018-09-19 18:46 | ED_ITS ---
HPI - Fever General Chief Complaint: Fever Stated Complaint: HIVES, LIGHT HEADED, UNABLE TO EAT Time Seen by Provider: 09/19/18 17:33 Source: patient Mode of arrival: ambulatory Limitations: no limitations History of Present Illness HPI Narrative: 42-year-old female was seen here in the emergency department yesterday for having hives. Was treated for this. Just finished a course of clindamycin for a ?staph infection? on her face returns today for return of the rash on her upper extremities and chest. She states it is itching. She also states she does not feel very well. has not tried anything for symptoms prior to arrival Related Data Previous Rx's Medication Instructions Recorded levothyroxine 125 mcg tablet 125 mcg PO DAILY #60 tab 08/31/18 metronidazole 0.75 % topical cream 1 applictn TOP BID #45 gram 08/31/18 clindamycin HCl 300 mg capsule 300 mg PO TID #21 cap 09/07/18 diphenhydramine HCl [Benadryl] 50 mg PO Q6-8H PRN #20 cap 09/18/18 ranitidine HCl 300 mg PO DAILY #6 cap 09/18/18 Allergies Allergy/AdvReac Type Severity Reaction Status Date / Time nabumetone AdvReac Mild itchy, Verified 09/19/18 15:24 stomach upset Review of Systems Constitutional Reports chills, Reports fatigue, Denies headache(s) and Reports malaise Eyes Denies change in vision ENT Ears, Nose, Mouth, and Throat: Denies headache(s), Denies lip swelling, Denies sore throat and Denies throat swelling Cardiovascular Denies chest pain and Denies dyspnea Respiratory Denies cough and Denies dyspnea Gastrointestinal Gastrointestinal: Denies abdominal pain, Denies change in stool character, Denies nausea and Denies vomiting Genitourinary Denies dysuria and Denies vaginal discharge Musculoskeletal Denies myalgias and Denies arthralgias Integumentary/Breasts Reports erythema and Reports rash Neurologic Denies behavioral changes, Denies headache(s) and Denies focal weakness Psychiatric Denies behavioral changes Endocrine Reports fatigue Hematologic/Lymphatic Denies easy bleeding and Denies easy bruising Allergic/Immunologic Reports urticaria, Denies lip swelling and Denies throat swelling [facility] Medical History Hypothyroidism (Chronic) Chronic headache disorder (Chronic) Surgical History History of carpal tunnel release (Resolved) Family History Other Family history non-contributory Social History marital status: unmarried,single household members: family pets and animals: Yes seatbelt use: always working smoke detector in home: Yes carbon monox detector in home: Yes Smoking Status: Never smoker alcohol intake: current substance use type: does not use during the past year weight has: decreased > 10 lbs well-balanced diet: daily or most days daily servings fruits/ve-1 caffeine: Yes eating out: rarely or never Family History Other Family history non-contributory Social History marital status: unmarried,single household members: family pets and animals: Yes seatbelt use: always working smoke detector in home: Yes carbon monox detector in home: Yes Smoking Status: Never smoker alcohol intake: current substance use type: does not use during the past year weight has: decreased > 10 lbs well-balanced diet: daily or most days daily servings fruits/ve-1 caffeine: Yes eating out: rarely or never Exam Initial Vital Signs Initial Vital Signs: Vital Signs Temperature 102.6 F H 09/19/18 15:19 Pulse Rate 137 H 09/19/18 15:19 Respiratory Rate 22 09/19/18 15:19 Blood Pressure 127/98 H 09/19/18 15:19 Pulse Oximetry 99 09/19/18 15:19 Const General: cooperative, well groomed, No acute distress, No diaphoretic, ill appearing (However not septic) and No lethargic Orientation: alert, awake and oriented x3 HENMT Head: normal to inspection and normocephalic Resp Effort & Inspection: normal respiratory effort Auscultation: clear to auscultation bilaterally Cardio Rate: tachycardic Rhythm: regular rhythm Pulses: radial pulses present GI Inspection: non-distended Palpation: soft, No firm and No tender Skin Other: Patient without urticaria however does have a fine red rash mostly on her upper extremities and upper chest. Also has crusting on her face. She states this is not new. Patient also has a butterfly like rash around her nose and her face. Neuro General: alert, awake and oriented x3 Cognition: normal cognition Speech: speech normal Extrem General: normal to inspection and capillary refill normal Psych Appearance: grossly normal and well kempt Scores GCS [place] coma scale eye opening: Spontaneous [place] coma scale verbal response: Orientated [place] coma scale motor response: Obey commands [place] coma scale total score: 15 Course Orders Ordered: ED Orders 09/19/18 18:22 Blood Culture Stat 09/19/18 18:23 EKG-12 Lead Stat 09/19/18 18:50 C-Reactive Protein Quant Stat Complete Blood Count AUTO DIFF Stat Comprehensive Metabolic Panel Stat Erythrocyte Sedimentation Rate Stat Lactate (Lactic Acid) Stat Monotest Stat Procalcitonin Stat Thyroid Stimulating Hormone Stat 09/19/18 19:30 Influenza A and B by PCR Rapid Stat Urine Microscopic Stat 09/19/18 22:28 Free T4 Free Thyroxine Stat Thyroglobulin Panel Stat Triiodothyronine T3 Free Stat 09/19/18 22:34 Thyroid Peroxidase Antibodies Stat Discontinued Medications Acetaminophen (Tylenol) 975 mg PO NOW ONE Stop: 09/19/18 17:30 Last Admin: 09/19/18 18:51 Dose: 975 mg Sodium Chloride (Normal Saline 0.9%) 1,000 mls @ 1,000 mls/hr IV BOLUS ONE Stop: 09/19/18 19:21 Last Infusion: 09/19/18 20:24 Dose: 0 mls/hr Admin: 09/19/18 19:35 Dose: 1,000 mls/hr Sodium Chloride (Normal Saline 0.9%) 1,000 mls @ 150 mls/hr IV CONT DESIREE Last Infusion: 09/19/18 22:36 Dose: 0 mls/hr Admin: 09/19/18 20:24 Dose: 150 mls/hr Ibuprofen (Advil) 800 mg PO NOW ONE Stop: 09/19/18 17:30 Last Admin: 09/19/18 18:52 Dose: 800 mg Vital Signs - 8 hr 09/19/18 18:51 09/19/18 18:52 09/19/18 19:00 Temperature 101.2 F H 101.2 F H 101.2 F H Pulse Rate 112 H Respiratory Rate 24 Blood Pressure Blood Pressure [Right Arm] 109/62 Pulse Oximetry 99 09/19/18 19:52 09/19/18 19:53 09/19/18 20:30 Temperature 100.2 F H 100.2 F H Pulse Rate 93 H 90 Respiratory Rate 17 23 Blood Pressure Blood Pressure [Right Arm] 108/62 102/58 L Pulse Oximetry 100 100 09/19/18 21:54 09/19/18 22:34 Temperature 99.4 F Pulse Rate 75 76 Respiratory Rate 20 17 Blood Pressure 108/58 L Blood Pressure [Right Arm] 100/62 Pulse Oximetry 98 99 MDM - Fever Lab Data Attestation: I reviewed the patient's lab results. Result diagrams: 09/19/18 18:50 09/19/18 18:50 Lab Results 09/19/18 09/19/18 09/19/18 Range/Units 18:50 18:50 18:50 WBC 3.2 L (4.5-11.0) X10^3/uL RBC 4.30 (4.0-5.2) X10^6/uL Hgb 11.8 L (12.0-16.0) g/dL Hct 35.3 L (36-46) % MCV 82.1 (80-100) fL MCH 27.5 (26-34) PG MCHC 33.5 (30-36) % RDW 14.5 (11.6-14.8) % Plt Count 152 (150-400) X10^3/uL Neut % (Auto) 67.7 (50-75) % Lymph % (Auto) 19.2 L (25-40) % [place] % (Auto) 11.6 (3-14) % Eos % (Auto) 0.4 L (2-4) % Baso % (Auto) 1.1 (0-2) % Neut # (Auto) 2200 (0659-6636) /uL Lymph # (Auto) 600 L (5570-0115) /uL [place] # (Auto) 400 (0-900) /uL Eos # (Auto) 0 (0-450) /uL Baso # (Auto) 0 (0-100) /uL ESR (0-20) MM/HR Sodium 137 (137-145) mmol/L Potassium 4.0 (3.4-5.1) mmol/L Chloride 100 (98-107) mmol/L Carbon Dioxide 21 L (22-32) mmol/L BUN 7 (7-17) mg/dL Creatinine 0.60 (0.52-1.04) mg/dL Estimated GFR > 60.0 (>60) mL/min BUN/Creatinine Ratio 11.7 (6-22) Glucose 69 L (70-100) mg/dL Lactate (0.7-2.1) mmol/L Calcium 8.9 (8.4-10.2) mg/dL Total Bilirubin 0.7 (0.2-1.3) mg/dL AST 60 H (14-36) IU/L ALT 40 (9-52) IU/L Alkaline Phosphatase 72 (38-126) U/L C-Reactive Protein (<1.0) mg/dL Total Protein 8.8 H (6.3-8.2) g/dL Albumin 4.3 (3.5-5.0) g/dL Globulin 4.5 H (1.7-4.1) g/dL Albumin/Globulin Ratio 1.0 (1.0-2.8) Procalcitonin < 0.05 (<0.5) ng/mL TSH (0.47-4.68) uIU/mL Free T4 (0.78-2.19) ng/dL Free T3 (2.77-5.27) pg/mL Urine RBC (0-5/HPF) Urine WBC (0-5/HPF) Ur Squamous Epith Cells (0-5/HPF) Urine Bacteria (None) Hyaline Casts (None) Urine Mucus (Negative) Ur Culture Indicated? Monoscreen (Negative) Influenza A & B (PCR) (Negative) 09/19/18 09/19/18 09/19/18 Range/Units 18:50 18:50 18:50 WBC (4.5-11.0) X10^3/uL RBC (4.0-5.2) X10^6/uL Hgb (12.0-16.0) g/dL Hct (36-46) % MCV (80-100) fL MCH (26-34) PG MCHC (30-36) % RDW (11.6-14.8) % Plt Count (150-400) X10^3/uL Neut % (Auto) (50-75) % Lymph % (Auto) (25-40) % [place] % (Auto) (3-14) % Eos % (Auto) (2-4) % Baso % (Auto) (0-2) % Neut # (Auto) (9415-9410) /uL Lymph # (Auto) (5380-2278) /uL [place] # (Auto) (0-900) /uL Eos # (Auto) (0-450) /uL Baso # (Auto) (0-100) /uL ESR (0-20) MM/HR Sodium (137-145) mmol/L Potassium (3.4-5.1) mmol/L Chloride (98-107) mmol/L Carbon Dioxide (22-32) mmol/L BUN (7-17) mg/dL Creatinine (0.52-1.04) mg/dL Estimated GFR (>60) mL/min BUN/Creatinine Ratio (6-22) Glucose (70-100) mg/dL Lactate 0.9 (0.7-2.1) mmol/L Calcium (8.4-10.2) mg/dL Total Bilirubin (0.2-1.3) mg/dL AST (14-36) IU/L ALT (9-52) IU/L Alkaline Phosphatase (38-126) U/L C-Reactive Protein (<1.0) mg/dL Total Protein (6.3-8.2) g/dL Albumin (3.5-5.0) g/dL Globulin (1.7-4.1) g/dL Albumin/Globulin Ratio (1.0-2.8) Procalcitonin (<0.5) ng/mL TSH 0.03 L (0.47-4.68) uIU/mL Free T4 (0.78-2.19) ng/dL Free T3 (2.77-5.27) pg/mL Urine RBC (0-5/HPF) Urine WBC (0-5/HPF) Ur Squamous Epith Cells (0-5/HPF) Urine Bacteria (None) Hyaline Casts (None) Urine Mucus (Negative) Ur Culture Indicated? Monoscreen Negative (Negative) Influenza A & B (PCR) (Negative) 09/19/18 09/19/18 09/19/18 Range/Units 18:50 18:50 19:30 WBC (4.5-11.0) X10^3/uL RBC (4.0-5.2) X10^6/uL Hgb (12.0-16.0) g/dL Hct (36-46) % MCV (80-100) fL MCH (26-34) PG MCHC (30-36) % RDW (11.6-14.8) % Plt Count (150-400) X10^3/uL Neut % (Auto) (50-75) % Lymph % (Auto) (25-40) % [place] % (Auto) (3-14) % Eos % (Auto) (2-4) % Baso % (Auto) (0-2) % Neut # (Auto) (1604-9602) /uL Lymph # (Auto) (0147-9609) /uL [place] # (Auto) (0-900) /uL Eos # (Auto) (0-450) /uL Baso # (Auto) (0-100) /uL ESR 48 H (0-20) MM/HR Sodium (137-145) mmol/L Potassium (3.4-5.1) mmol/L Chloride (98-107) mmol/L Carbon Dioxide (22-32) mmol/L BUN (7-17) mg/dL Creatinine (0.52-1.04) mg/dL Estimated GFR (>60) mL/min BUN/Creatinine Ratio (6-22) Glucose (70-100) mg/dL Lactate (0.7-2.1) mmol/L Calcium (8.4-10.2) mg/dL Total Bilirubin (0.2-1.3) mg/dL AST (14-36) IU/L ALT (9-52) IU/L Alkaline Phosphatase (38-126) U/L C-Reactive Protein 2.4 H (<1.0) mg/dL Total Protein (6.3-8.2) g/dL Albumin (3.5-5.0) g/dL Globulin (1.7-4.1) g/dL Albumin/Globulin Ratio (1.0-2.8) Procalcitonin (<0.5) ng/mL TSH (0.47-4.68) uIU/mL Free T4 (0.78-2.19) ng/dL Free T3 (2.77-5.27) pg/mL Urine RBC (0-5/HPF) Urine WBC (0-5/HPF) Ur Squamous Epith Cells (0-5/HPF) Urine Bacteria (None) Hyaline Casts (None) Urine Mucus (Negative) Ur Culture Indicated? Monoscreen (Negative) Influenza A & B (PCR) Negative (Negative) 09/19/18 09/19/18 Range/Units 19:30 22:28 WBC (4.5-11.0) X10^3/uL RBC (4.0-5.2) X10^6/uL Hgb (12.0-16.0) g/dL Hct (36-46) % MCV (80-100) fL MCH (26-34) PG MCHC (30-36) % RDW (11.6-14.8) % Plt Count (150-400) X10^3/uL Neut % (Auto) (50-75) % Lymph % (Auto) (25-40) % [place] % (Auto) (3-14) % Eos % (Auto) (2-4) % Baso % (Auto) (0-2) % Neut # (Auto) (0366-1520) /uL Lymph # (Auto) (1085-1103) /uL [place] # (Auto) (0-900) /uL Eos # (Auto) (0-450) /uL Baso # (Auto) (0-100) /uL ESR (0-20) MM/HR Sodium (137-145) mmol/L Potassium (3.4-5.1) mmol/L Chloride (98-107) mmol/L Carbon Dioxide (22-32) mmol/L BUN (7-17) mg/dL Creatinine (0.52-1.04) mg/dL Estimated GFR (>60) mL/min BUN/Creatinine Ratio (6-22) Glucose (70-100) mg/dL Lactate (0.7-2.1) mmol/L Calcium (8.4-10.2) mg/dL Total Bilirubin (0.2-1.3) mg/dL AST (14-36) IU/L ALT (9-52) IU/L Alkaline Phosphatase (38-126) U/L C-Reactive Protein (<1.0) mg/dL Total Protein (6.3-8.2) g/dL Albumin (3.5-5.0) g/dL Globulin (1.7-4.1) g/dL Albumin/Globulin Ratio (1.0-2.8) Procalcitonin (<0.5) ng/mL TSH (0.47-4.68) uIU/mL Free T4 3.13 H (0.78-2.19) ng/dL Free T3 2.58 L (2.77-5.27) pg/mL Urine RBC None seen (0-5/HPF) Urine WBC 0-1/hpf (0-5/HPF) Ur Squamous Epith Cells 1-5 /hpf (0-5/HPF) Urine Bacteria Few (2-10) H (None) Hyaline Casts 0-1/lpf (None) Urine Mucus 1+ H (Negative) Ur Culture Indicated? Cult not indicated Monoscreen (Negative) Influenza A & B (PCR) (Negative) Point of Care Testing Test Results Negative Urine Dip Bedside Urine Glucose Negative Bedside Urine Bilirubin - Negative Bedside Urine Ketone +++ 80 Urine Specific [place] 1.030 Bedside Urine Occult Blood - Negative Bedside Urine pH 6.0 Bedside Urine Protein + 30 Bedside Urine Urobilinogen +/- 1mg Bedside Urine Nitrite - Negative Bedside Urine Leukocytes - Negative Esterase MDM Narrative Medical decision making narrative: Patient arrived febrile and tachycardic and tachypneic. This did improve after Tylenol Motrin and fluids here in the emergency department. Patient states that she felt much better after her fever improved. She has no signs of an upper respiratory infection. Her throat is normal. Her lungs are clear. She has not had a cough. I have low suspicion that source of infection is in her lungs. She has a soft abdomen I have a low suspicion for intra-abdominal infection. Her urine is negative. she has no signs of meningitis. She does have a rash on her upper extremities and on her face however I feel that this is not consistent with the level the systemic symptoms that she is having. Patient also has a low TSH. She recently had her Synthroid increased from 50 date to 125 a day. I considered thyroid storm however her symptoms improved with Tylenol. Did not feel the need to pursue this further than that. Unsure were source of infection is. I do have some suspicion of whether not there actually is an infection and that her symptoms are brought her in today are potentially other causes. I had a long discussion with Dr. Mitchell who is on-call for the patient's primary provider. The ESR CRP T3 and T4 another specialized studies were ordered per her recommendation for follow-up in the clinic. The patient was instructed that she needed to ask her primary doctor about these. Dr Mitchell will contact the patient's primary provider to have her followed up tomorrow. Autoimmune issues especially with the rashes on her face does some concern for etiology such as lupus. I do not have reason to start her on antibiotics. I feel that this would just complicate the picture. The patient was asking to go home. She feels like she go home. Her procalcitonin was negative and her lactate was unremarkable. blood cultures were obtained. Patient given strict return precautions and follow-up instructions. She expressed understanding and agreement with plan. Discharge Plan Departure Patient Disposition: Home Clinical Impression: Hyperthyroidism, Rash Fever Qualifiers: Fever type: unspecified Qualified Code(s): R50.9 - Fever, unspecified Discharge Date/Time: 09/19/18 22:36 Interventions: ED Discharge Assessment Last Done: 09/19/18 22:34 Activity Restrictions/Additional Instructions: You can take Tylenol and/or Motrin for any fevers and body aches. Be sure to increase your fluid intake. There were labs drawn here in the emergency department that were not resulted by the time you or discharge. Please talk with your primary provider about the results of these. Return to the emergency department for any new or worsening symptoms. Call your primary doctor's office tomorrow for a follow-up. Prescriptions: No Action metronidazole 0.75 % cream 1 applictn TOP BID Qty: 45 RF: 0 levothyroxine 125 mcg tablet 125 mcg PO DAILY Qty: 60 RF: 0 clindamycin HCl 300 mg capsule 300 mg PO TID Qty: 21 RF: 0 diphenhydramine HCl [Benadryl] 25 mg capsule 50 mg PO Q6-8H PRN (Reason: allergic reaction) Qty: 20 RF: 0 ranitidine HCl 150 mg capsule 300 mg PO DAILY Qty: 6 RF: 0 Referrals: Frida Singh MD [Primary Care Provider] - Stand Alone Forms: Work Release Note
[2018-09-19] MEDS: ACETAMINOPHEN 325 MG TABLET 975 MG PO (18:51)
[2018-09-19] MEDS: IBUPROFEN 400 MG TABLET 800 MG PO (18:52)
[2018-09-19 19:02] LABS: Add Manual Diff / Slide Review NO; Basophils Absolute Auto 0 /uL (0-100); Basophils Percent Auto 1.1 % (0-2); Eosinophils Absolute Auto 0 /uL (0-450); Eosinophils Percent Auto 0.4 % (2-4); Hematocrit 35.3 % (36-46); Hemoglobin 11.8 g/dL (12.0-16.0); Lymphocytes Absolute Auto 600 /uL (1100-4500); Lymphocytes Percent Auto 19.2 % (25-40); Mean Corpuscular HGB Conc 33.5 % (30-36); Mean Corpuscular Hemoglobin 27.5 PG (26-34); Mean Corpuscular Volume 82.1 fL (80-100); Monocytes Absolute Auto 400 /uL (0-900); Monocytes Percent Auto 11.6 % (3-14); Neutrophils Absolute Auto 2200 /uL (1500-7000); Neutrophils Percent Auto 67.7 % (50-75); Platelet Count 152 X10^3/uL (150-400); Red Cell Distribution Width 14.5 % (11.6-14.8); White Blood Cell Count 3.2 X10^3/uL (4.5-11.0)
[2018-09-19 19:15] LABS: Monotest Negative (Negative)
[2018-09-19 19:16] LABS: Lactate (Lactic Acid) 0.9 mmol/L (0.7-2.1)
[2018-09-19 19:17] LABS: Alanine Aminotransferase 40 IU/L (9-52); Albumin 4.3 g/dL (3.5-5.0); Alkaline Phosphatase 72 U/L (38-126); Aspartate Aminotransferase 60 IU/L (14-36); BUN Creatinine Ratio 11.7 (6-22); Bilirubin Total 0.7 mg/dL (0.2-1.3); Blood Urea Nitrogen 7 mg/dL (7-17); Calcium 8.9 mg/dL (8.4-10.2); Carbon Dioxide 21 mmol/L (22-32); Chloride 100 mmol/L (98-107); Estimated Glomerular Filt Rate > 60.0 mL/min (>60); Globulin 4.5 g/dL (1.7-4.1); Glucose 69 mg/dL (70-100); HEMOLYSIS < 15 (0-50); Sodium 137 mmol/L (137-145); Total Protein 8.8 g/dL (6.3-8.2)
[2018-09-19] MEDS: SODIUM CHLORIDE 0.9% 1,000 ML 1000 ML IV (19:35)
[2018-09-19 19:46] LABS: Procalcitonin < 0.05 ng/mL (<0.5)
[2018-09-19 19:47] LABS: Thyroid Stimulating Hormone 0.03 uIU/mL (0.47-4.68)
[2018-09-19 20:03] LABS: RBC Urine None Seen (0-5/HPF)
[2018-09-19 20:15] LABS: Influenza A and B by PCR Rapid Negative (Negative)
[2018-09-19] MEDS: SODIUM CHLORIDE 0.9% 1,000 ML 150 ML IV (20:24)
[2018-09-19 20:26] LABS: Bacteria Urine Few (2-10); Culture Indicated Urine Cult Not Indicated; Hyaline Casts Urine 0-1/LPF; Mucus Urine 1+ (Negative); Squamous Epithelial Cell Urine 1-5 /HPF (0-5/HPF); WBC Urine 0-1/HPF (0-5/HPF)
[2018-09-19 22:37] LABS: C-Reactive Protein Quant 2.4 mg/dL (<1.0)
[2018-09-19 23:04] LABS: Erythrocyte Sedimentation Rate 48 MM/HR (0-20)
[2018-09-19 23:12] LABS: Free T3, Triiodothyronine Free 2.58 pg/mL (2.77-5.27); Free T4, Direct Thyroxine 3.13 ng/dL (0.78-2.19)
[2018-09-21 16:23] LABS: Thyroglobulin Antibodies 1 IU/mL (< 2); Thyroglobulin Level 1.1 ng/mL (2.8-40.9)
[2018-09-21 16:54] LABS: Thyroid Peroxidase Antibodies 1 IU/mL (< 9)
== END 2018-09-19 22:36 | disposition home or self-care (01) ==
PROVIDERS: Nurse Practitioner Family; Emergency Provider Emergency Medicine; Family Provider Family Medicine; PCP Family Medicine
DX: E05.90 Thyrotoxicosis, unspecified without thyrotoxic crisis or storm (principal); R21 Rash and other nonspecific skin eruption; R50.9 Fever, unspecified; R00.0 Tachycardia, unspecified; R06.82 Tachypnea, not elsewhere classified
CPT/HCPCS: 36415; 80053; 81003; 81015; 81025; 83605; 84145; 84432; 84439; 84443; 84481; 85025; 85651; 86140; 86318; 86376; 86800; 87040; 87400; 96360; 96361; 99283; 99284

== ENCOUNTER → 2018-10-16 17:18 | Outpatient (CLI) | payer OTHER, MEDICAID, SELFPAY ==
[2018-10-16 18:46] LABS: Free T3, Triiodothyronine Free 3.43 pg/mL (2.77-5.27); Free T4, Direct Thyroxine 1.87 ng/dL (0.78-2.19)
[2018-10-17 16:13] LABS: Thyroid Stimulating Hormone < 0.02 uIU/mL (0.47-4.68)
== END ==
PROVIDERS: Family Provider Family Medicine; PCP Family Medicine; Visit Provider Registered Nurse
DX: E03.9 Hypothyroidism, unspecified (principal)
CPT/HCPCS: 36415; 84439; 84443; 84481

== ENCOUNTER → 2018-11-01 12:46 | Outpatient (CLI) | payer OTHER, MEDICAID, SELFPAY ==
--- NOTE | 2018-11-01 12:48 | DI.US.S_ITS ---
ULTRASOUND OF LEFT BREAST AND AXILLA: 11/01/2018 CLINICAL: Patient returns today for a 2 month follow up of a left breast lump that is now palpable. Comparison is made to exam dated: 09/04/2018 [facility]. Color flow and real-time ultrasound of the left breast axilla were performed. Larson scale images of the real-time examination were reviewed. No abnormalities were seen sonographically in the left axilla. Targeted ultrasound of the left breast demonstrates a correlating 1.5 x 1.2 x 1.2 cm oval circumscribed hypoechoic mass in the left breast at 11:00 position 4 cm from the nipple which demonstrates mild posterior acoustic enhancement and mild internal vascularity on Doppler ultrasound. Targeted ultrasound of the left axilla demonstrates resolution of previously noted left axillary lymph node with mild cortical thickening. Normal appearing lymph nodes are seen today. IMPRESSION: PROBABLY BENIGN Stable 1.5 cm oval circumscribed mass in the left breast 11:00 position 4 cm from the nipple likely represents a fibroadenoma and is probably benign. A followup ultrasound in 6 months is recommended to demonstrate continued stability. Alternatively, this mass can be biopsied per patient preference, but she wants to continue imaging surveillance. This exam was interpreted at Station ID: [id number]. Electronically Signed By: Walt Martino M.D. aty/:11/01/2018 15:07:10 letter sent: Followup Recommended Ultrasound BI-RADS: 3 Probably benign
== END ==
PROVIDERS: Family Provider Family Medicine; PCP Family Medicine; Visit Provider Family Medicine
DX: N63.22 Unspecified lump in the left breast, upper inner quadrant (principal)
CPT/HCPCS: 76642

== ENCOUNTER → 2018-11-19 17:06 | Outpatient (CLI) | payer OTHER, MEDICAID, SELFPAY ==
[2018-11-19 18:29] LABS: Thyroid Stimulating Hormone 0.27 uIU/mL (0.47-4.68)
== END ==
PROVIDERS: PCP Family Medicine; Visit Provider Registered Nurse
DX: E03.9 Hypothyroidism, unspecified (principal)
CPT/HCPCS: 36415; 84443

== ENCOUNTER → 2019-01-08 12:01 | Outpatient (CLI) | payer OTHER, MEDICAID, SELFPAY | PROVIDERS: PCP Family Medicine; Visit Provider Family Medicine | DX: E03.9 Hypothyroidism, unspecified (principal) | CPT/HCPCS: 36415; 84443 ==

== ENCOUNTER → 2019-01-12 12:24 | Outpatient (CLI) | payer OTHER, MEDICAID, SELFPAY ==
[2019-01-12 12:56] LABS: Add Manual Diff / Slide Review NO; Basophils Absolute Auto 100 /uL (0-100); Eosinophils Absolute Auto 100 /uL (0-450); Hematocrit 36.4 % (36-46); Hemoglobin 11.9 g/dL (12.0-16.0); Lymphocytes Absolute Auto 1200 /uL (1100-4500); Lymphocytes Percent Auto 15.7 % (25-40); Mean Corpuscular HGB Conc 32.7 % (30-36); Mean Corpuscular Hemoglobin 26.5 PG (26-34); Monocytes Absolute Auto 600 /uL (0-900); Monocytes Percent Auto 8.1 % (3-14); Neutrophils Absolute Auto 5800 /uL (1500-7000); Neutrophils Percent Auto 74.2 % (50-75); Platelet Count 449 X10^3/uL (150-400); Red Blood Cell Count 4.49 X10^6/uL (4.0-5.2); Red Cell Distribution Width 15.2 % (11.6-14.8); White Blood Cell Count 7.8 X10^3/uL (4.5-11.0)
[2019-01-12 13:10] LABS: Alanine Aminotransferase 25 IU/L (9-52); Albumin Globulin Ratio 1.1 (1.0-2.8); Alkaline Phosphatase 77 U/L (38-126); Aspartate Aminotransferase 21 IU/L (14-36); Bilirubin Total 0.3 mg/dL (0.2-1.3); Blood Urea Nitrogen 11 mg/dL (7-17); Calcium 9.4 mg/dL (8.4-10.2); Carbon Dioxide 30 mmol/L (22-32); Chloride 100 mmol/L (98-107); Estimated Glomerular Filt Rate > 60.0 mL/min (>60); Globulin 3.6 g/dL (1.7-4.1); Glucose 84 mg/dL (70-100); HEMOLYSIS < 15 (0-50); Potassium 4.3 mmol/L (3.4-5.1); Sodium 136 mmol/L (137-145); Total Protein 7.6 g/dL (6.3-8.2)
[2019-01-12 13:18] LABS: Erythrocyte Sedimentation Rate 52 MM/HR (0-20)
[2019-01-12 13:49] LABS: C-Reactive Protein Quant < 0.5 mg/dL (<1.0)
== END ==
PROVIDERS: Family Medicine; PCP Family Medicine; Visit Provider Family Medicine
DX: D68.61 Antiphospholipid syndrome (principal); I26.99 Other pulmonary embolism without acute cor pulmonale; M32.9 Systemic lupus erythematosus, unspecified
CPT/HCPCS: 36415; 80053; 85025; 85651; 86140

== ENCOUNTER → 2019-03-03 11:59 | Outpatient (CLI) | payer OTHER, MEDICAID, SELFPAY ==
--- NOTE | 2019-03-03 12:02 | DI.RAD.S_ITS ---
PROCEDURE: XR ELBOW LT MIN 3V INDICATIONS: Limited ROM in extension, pain, r/o joint effusion TECHNIQUE: 3 Views of the elbow were acquired. COMPARISON: None. FINDINGS: Bones: No fractures or dislocations. No suspicious bony lesions. Soft tissues: No significant elbow joint effusion. No suspicious soft tissue calcifications. IMPRESSION: Negative plain films. No significant joint effusion can be seen. If there is strong clinical suspicion for internal derangement of this joint, please consider a dedicated MRI for further evaluation (assuming that there is no contraindication to MRI). Dictated by: Ab Mohamud M.D. on 03/03/2019 at 11:51 Approved by: Ab Mohamud M.D. on 03/03/2019 at 11:52
== END ==
PROVIDERS: PCP Family Medicine; Visit Provider Physician Assistant
DX: M25.522 Pain in left elbow (principal)
CPT/HCPCS: 73080

== ENCOUNTER → 2019-03-13 11:13 | Outpatient (CLI) | payer OTHER, MEDICAID, SELFPAY ==
[2019-03-13 13:53] LABS: Thyroid Stimulating Hormone 2.31 uIU/mL (0.47-4.68)
== END ==
PROVIDERS: PCP Family Medicine; Visit Provider Family Medicine
DX: E03.9 Hypothyroidism, unspecified (principal)
CPT/HCPCS: 36415; 84443

== ENCOUNTER → 2019-04-01 13:42 | Outpatient (CLI) | payer OTHER, MEDICAID, SELFPAY ==
--- NOTE | 2019-04-01 13:43 | DI.CT.S_ITS ---
PROCEDURE: CT ANGIO CHEST PE PROTOCOL INDICATIONS: f/u PE TECHNIQUE: After the administration of intravenous contrast, 2 mm thick sections acquired from the pulmonary apices to the posterior costophrenic angles. 3-dimensional maximum intensity projection (MIP) coronal and sagittal reformats were then acquired through the thorax. For radiation dose reduction, the following was used: automated exposure control, adjustment of mA and/or kV according to patient size. COMPARISON: [facility], CT, CT ANGIO CHEST PE PROTOCOL, 08/30/2018, 9:29. FINDINGS: Image quality: Suboptimal evaluation due to body habitus and associated noise artifact. Pulmonary arteries: Pulmonary arteries are normal in size, and demonstrate no intraluminal filling defects to suggest central pulmonary embolism. Lungs and pleura: Lungs are clear. No pleural effusions or pneumothorax. Central and peripheral airways are patent. Mediastinum: Heart size is normal, without pericardial effusion. No mediastinal or hilar adenopathy. Thoracic aorta is normal in caliber and enhancement. Esophagus is normal in caliber, without hiatal hernia. Bones and chest wall: No suspicious bony lesions. Ribs and thoracic spine appear intact throughout. Thyroid gland unremarkable. No axillary or supraclavicular adenopathy. Abdomen: Visualized upper abdominal solid organs appear normal in the early arterial phase of enhancement. IMPRESSION: No evidence of pulmonary embolism. Suboptimal evaluation due to body habitus with associated noise artifact. Clear lungs. Redemonstrated oval density within the lateral left breast. As previously recommended, consider ultrasound correlation if not already performed Dictated by: Deric Franks M.D. on 04/01/2019 at 15:48 Approved by: Deric Franks M.D. on 04/01/2019 at 15:54
== END ==
PROVIDERS: PCP Family Medicine; Visit Provider Family Medicine
DX: I26.99 Other pulmonary embolism without acute cor pulmonale (principal); N64.89 Other specified disorders of breast
CPT/HCPCS: 71275; Q9967

== ENCOUNTER 2019-04-08 17:29 | Emergency (ER) | payer OTHER, MEDICAID, SELFPAY ==
[2019-04-08 17:36] VITALS: BP 127/86; PULSE 104; RESP 18; TEMP 36; O2SAT 100
--- NOTE | 2019-04-08 17:39 | DI.RAD.S_ITS ---
PROCEDURE: XR ELBOW LT MIN 3V INDICATIONS: Trauma to elbow, pain with extension TECHNIQUE: 30 views of the elbow were acquired. COMPARISON: [facility], CR, XR ELBOW LT MIN 3V, 03/03/2019, 12:16. FINDINGS: Bones: No displaced fractures or dislocations. No suspicious bony lesions. Soft tissues: There is a small elbow joint effusion. No suspicious soft tissue calcifications. IMPRESSION: 1. No displaced fracture or dislocation. 2. Small joint effusion. If clinical concern persists for an occult fracture, recommend a repeat study in 7-10 days. Dictated by: Edd Juares M.D. on 04/08/2019 at 18:05 Approved by: Edd Juares M.D. on 04/08/2019 at 18:08
--- NOTE | 2019-04-08 21:28 | ED_ITS ---
HPI - Extremity Injury (Upper) <Daniela Duran, DRAGSAW OPERATOR-BC - Last Filed: 04/08/19 21:34> General Chief Complaint: Extremity Injury, Upper Stated Complaint: Hurt Left Elbow Time Seen by Provider: 04/08/19 20:11 Source: patient Mode of arrival: Ambulatory Limitations: no limitations History of Present Illness HPI narrative: The patient is a 23-year-old female nonsmoker with history of bipolar who presents with a chief complaint of sudden left elbow pain. She states she had on something history, is not sure what. She states she had something last week, is not sure what. She has not taken any Tylenol Motrin or applied any ice. She states she cannot openly extend her arm. She states she is unable to straighten it. Her mechanism of injury is unclear, but she denies any pain of her left wrist or shoulder. Related Data Home Medications Medication Instructions Recorded Confirmed hydroxychloroquine 200 mg tablet 400 mg PO DAILY tab 10/02/18 03/20/19 warfarin 5 mg tablet 5 mg PO DAILY 10/02/18 03/20/19 docusate sodium 100 mg capsule 100 mg PO DAILY 11/07/18 03/20/19 loratadine 10 mg tablet 10 mg PO DAILY 12/11/18 03/20/19 Previous Rx's Medication Instructions Recorded Disabled parking permit #1 ea 10/29/18 levothyroxine 75 mcg capsule 75 mcg PO DAILY #90 cap 01/09/19 ketotifen fumarate 0.025 % (0.035 1 drop EYE-BOTH BID PRN #10 ml 01/15/19 %) eye drops triamcinolone acetonide 0.1 % 1 applictn TOP BID #30 gram 02/05/19 topical ointment ondansetron 8 mg disintegrating 8 mg PO TID PRN #90 tab 03/06/19 tablet omeprazole 20 mg tablet,delayed 20 mg PO BID #60 tab 03/18/19 release prednisone 1 mg tablet See Rx Instructions .ROUTE 03/20/19 .COMPLEX #180 tab quetiapine 300 mg tablet 300 mg PO DAILY #30 tab 03/20/19 mycophenolate mofetil 200 mg/mL See Rx Instructions PO BID #450 ml 04/05/19 oral suspension Allergies Allergy/AdvReac Type Severity Reaction Status Date / Time nabumetone AdvReac Mild itchy, Verified 03/20/19 11:05 stomach upset Review of Systems <DIPAK Abbott - Last Filed: 04/08/19 21:34> Review of Systems Narrative: GENERAL: Denies chills, fatigue, malaise, fever, sweats. HEENT: Denies sinus pain, ear pain, sore throat, difficulty swallowing, dizziness. RESPIRATORY: Denies dyspnea, cough, wheezing, hemoptysis, sputum. CARDIOVASCULAR: Denies chest pain, palpitations, orthopnea, edema, GASTROINTESTINAL: Denies nausea, vomiting, abdominal pain, diarrhea, constipation, melena. : Denies dysuria, frequency, incontinence, hematuria, urinary retention. MUSCULOSKELETAL: See HPI SKIN: Denies rash, skin lesions, or other NEUROLOGIC: Denies weakness, headache, numbness, change in speech, confusion, seizures, incoordination. PSYCHIATRIC: No concerning psychosocial issues. 12 point review of systems is negative except for those stated above Patient History <DIPAK Abbott - Last Filed: 04/08/19 21:34> Medical History Antiphospholipid syndrome (Chronic) Chronic headache disorder (Chronic) Hypothyroidism (Chronic) Pulmonary embolism (Acute) Systemic lupus (Chronic) Surgical History History of carpal tunnel release (Resolved) Family History Other Family history non-contributory Social History marital status: unmarried,single household members: family pets and animals: Yes seatbelt use: always working smoke detector in home: Yes carbon monox detector in home: Yes Smoking Status: Never smoker alcohol intake: current substance use type: does not use during the past year weight has: decreased > 10 lbs well-balanced diet: daily or most days daily servings fruits/ve-1 caffeine: Yes eating out: rarely or never alcohol intake frequency: 0-2 drinks per day Substance Use Type: does not use Exam <DIPAK Abbott - Last Filed: 04/08/19 21:34> Narrative Exam Narrative: GENERAL: Obese female no acute distress HEAD: Atraumatic. Normocephalic. No temporal or scalp tenderness. EYES: Pupils equal round and reactive. Extraocular motions intact. No scleral icterus. No injection or drainage. ENT: Nose without bleeding, purulent drainage or septal hematoma. Throat without erythema, tonsillar hypertrophy or exudate. Uvula midline. Airway patent. NECK: Trachea midline. No JVD or lymphadenopathy. Supple, nontender, no meningeal signs. CARDIOVASCULAR: Regular rate and rhythm. RESPIRATORY: No cough. No increased respiratory effort. No accessory muscle use. EXTREMITIES: General pain to palpation left elbow. Unable to extend left elbow to Street. Able to flex fully. Positive radial pulse. Capillary refill less than 2 seconds all fingers right hand BACK: Nontender without deformity or crepitance. No flank tenderness. NEURO: AOx3. SKIN: No rash or erythema or ecchymosis laceration or abrasion of visible skin on Initial Vital Signs Initial Vital Signs: Vital Signs Temperature 96.8 F L 04/08/19 17:36 Pulse Rate 104 H 04/08/19 17:36 Respiratory Rate 18 04/08/19 17:36 Blood Pressure 127/86 04/08/19 17:36 Pulse Oximetry 100 04/08/19 17:36 <Angelo Cole DO - Last Filed: 04/09/19 03:18> Initial Vital Signs Initial Vital Signs: Vital Signs Temperature 96.8 F L 04/08/19 17:36 Pulse Rate 104 H 04/08/19 17:36 Respiratory Rate 18 04/08/19 17:36 Blood Pressure 127/86 04/08/19 17:36 Pulse Oximetry 100 04/08/19 17:36 Procedures <DIPAK Abbott - Last Filed: 04/08/19 21:34> Orthopedic Splinting/Casting Injury #1: Side: left Upper Extremity Injury Location: elbow Upper Extremity Immobilizer: sling/shoulder immobilizer and posterior splint Post splinting neuro exam: intact Post splinting vascular exam: intact Placed by: Nursing Course <DIPAK Abbott - Last Filed: 04/08/19 21:34> Orders Ordered: Discontinued Medications Acetaminophen (Tylenol) 975 mg PO NOW ONE Stop: 04/08/19 20:20 Vital Signs Vital signs: Vital Signs - 8 hr 04/08/19 17:36 Temperature 96.8 F L Pulse Rate 104 H Respiratory Rate 18 Blood Pressure 127/86 Pulse Oximetry 100 <Angelo Cole DO - Last Filed: 04/09/19 03:18> Orders Ordered: Discontinued Medications Acetaminophen (Tylenol) 975 mg PO NOW ONE Stop: 04/08/19 20:20 Vital Signs Vital signs: Vital Signs - 8 hr 04/08/19 17:36 Temperature 96.8 F L Pulse Rate 104 H Respiratory Rate 18 Blood Pressure 127/86 Pulse Oximetry 100 [facility] - Extremity Injury (Upper) <RODDY Abbott-BC - Last Filed: 04/08/19 21:34> Imaging Data Elbow x-ray: Radiologist's impression: [address] [address] XRay Report Signed Patient: Tevin John#: [id number] : 1995Acct:[id number] Age/Sex: 23 / FDate of Service: 04/08/19 Loc: ED Accession Number: [id number] Procedure: XR elbow LT min 3V Ordering Provider: Rosy Foreman MD PROCEDURE: XR ELBOW LT MIN 3V INDICATIONS: Trauma to elbow, pain with extension TECHNIQUE: 30 views of the elbow were acquired. COMPARISON: [facility], JUAN MANUEL, XR ELBOW LT MIN 3V, 03/03/2019, 12:16. FINDINGS: Bones: No displaced fractures or dislocations. No suspicious bony lesions. Soft tissues: There is a small elbow joint effusion. No suspicious soft tissue calcifications. IMPRESSION: 1. No displaced fracture or dislocation. 2. Small joint effusion. If clinical concern persists for an occult fracture, recommend a repeat study in 7-10 days. Dictated by: Edd Juares M.D. on 04/08/2019 at 18:05 Approved by: Edd Juares M.D. on 04/08/2019 at 18:08 [facility] Narrative Medical decision making narrative: The patient is a 23-year-old female who presents with a chief complaint of elbow pain after hitting it several times. She has negative x-rays, but is noted to have an effusion. She is also unable to extend her elbow fully. The she was placed in a posterior splint which improved her pain. I discussed at length monitoring for neurovascular circulation in coming back to the emergency department for any acute concerns. I encouraged to follow up with [facility]Ps [facility]. I encouraged rest ice compression elevation as well as [id number] medications as needed and able. Patient has no questions or concerns upon discharge and states understanding return precautions as well as follow-up care. Discharge Plan Departure Patient Disposition: Home Clinical Impression: Elbow pain Qualifiers: Laterality: left Qualified Code(s): M25.522 - Pain in left elbow Discharge Date/Time: 04/08/19 22:02 Instructions: How to Use a Sling, How To Perform RICE (Rest, Ice, Compress, Elevate), DI for Elbow Pain Activity Restrictions/Additional Instructions: As I discussed, your x-ray shows no acute fracture. This does not rule out a soft tissue injury such as a ligament or tendon injury. It is important that you follow up with primary care provider, especially if worsening or no improvement. There can be fractures that did not show up on initial x-ray. Given her decreased range of motion, we did Elect to splint you at this time. Please use rest ice compression elevation as well as [id number] pain medications as needed and able. Please come back to the emergency department for any acute concerns such as decreased circulation of the hand Please follow up with primary care as well as [facility] if necessary. Prescriptions: No Action triamcinolone acetonide 0.1 % ointment 1 applictn TOP BID Qty: 30 RF: 0 loratadine 10 mg tablet 10 mg PO DAILY RF: 0 ondansetron 8 mg tablet,disintegrating 8 mg PO TID PRN (Reason: nausea and vomiting) Qty: 90 RF: 3 ketotifen fumarate 0.025 % (0.035 %) drops 1 drop EYE-BOTH BID PRN (Reason: allergy symptoms) Qty: 10 RF: 2 quetiapine 300 mg tablet 300 mg PO DAILY Qty: 30 RF: 2 prednisone 1 mg tablet See Rx Instructions .ROUTE .COMPLEX Qty: 180 RF: 0 hydroxychloroquine 200 mg tablet 400 mg PO DAILY RF: 0 warfarin 5 mg tablet 5 mg PO DAILY RF: 0 (DME) Disabled parking permit Qty: 1 RF: 0 levothyroxine 75 mcg capsule 75 mcg PO DAILY Qty: 90 RF: 1 omeprazole 20 mg tablet,delayed release (DR/EC) 20 mg PO BID Qty: 60 RF: 3 mycophenolate mofetil 200 mg/mL suspension for reconstitution See Rx Instructions PO BID Qty: 450 RF: 0 docusate sodium 100 mg capsule 100 mg PO DAILY RF: 0 Referrals: [facility] [Provider Group] Frida Singh MD [Primary Care Provider] -
== END 2019-04-08 22:02 | disposition home or self-care (01) ==
PROVIDERS: Emergency Provider Nurse Practitioner Family; PCP Family Medicine
DX: M25.522 Pain in left elbow (principal)
CPT/HCPCS: 29105; 73080; 99282; 99283

== ENCOUNTER → 2019-04-22 12:42 | Outpatient (CLI) | payer OTHER, MEDICAID, SELFPAY ==
--- NOTE | 2019-04-22 12:43 | DI.US.S_ITS ---
LIMITED ULTRASOUND OF LEFT BREAST: 04/22/2019 CLINICAL: 6 month follow-up lump. Comparison is made to exams dated: 11/01/2018 ultrasound and 09/04/2018 [facility]. Color flow and real-time ultrasound of the left breast 11 o'clock region were performed. Larson scale images of the real-time examination were reviewed. There is a 1.6 cm x 1.6 cm x 1.7 cm (previously 2.0 cm x 1.2 cm x 1.8 cm) round mass with a circumscribed margin in the left breast at 11 o'clock middle depth. This round mass is hypoechoic with a well-defined boundary and posterior acoustic enhancement. No internal vascularity demonstrated. There is peripheral vascularity. Adjacent similar appearing mass measuring 0.5 cm x 0.4 cm x 0.5 cm (previously measured 0.5 cm x 0.4 cm). No internal vascularity demonstrated. Previously measured as one solid mass instead of two adjacent masses. No enlarged left axillary lymph nodes. IMPRESSION: PROBABLY BENIGN Stable 1.7 cm round mass in the left breast most likely is a fibroadenoma and is probably benign. A follow-up ultrasound in 6 months is recommended to demonstrate long-term stability. Exam findings and recommendation were conveyed to the patient by the miner pick. This exam was interpreted at Station ID: [id number]. Electronically Signed By: Star Harris M.D. [facility] [place]/:04/22/2019 14:06:39 letter sent: Followup Recommended Ultrasound BI-RADS: 3 Probably benign
== END ==
PROVIDERS: PCP Family Medicine; Visit Provider Family Medicine
DX: R92.8 Other abnormal and inconclusive findings on diagnostic imaging of breast (principal); N63.22 Unspecified lump in the left breast, upper inner quadrant
CPT/HCPCS: 76642

== ENCOUNTER → 2019-06-12 15:25 | Outpatient (CLI) | payer OTHER, MEDICAID, SELFPAY ==
[2019-06-12 17:49] LABS: Hemoglobin A1C% w Est Avg Glu 5.4 % (4.0-6.0)
== END ==
PROVIDERS: PCP Family Medicine; Visit Provider Family Medicine
DX: R63.1 Polydipsia (principal)
CPT/HCPCS: 36415; 83036

== ENCOUNTER 2019-06-20 13:45 | Outpatient (RCR) | payer OTHER, MEDICAID, SELFPAY ==
--- NOTE | 2019-05-07 16:01 | PT.OIE ---
Current Diagnoses Pain in right knee (05/07/19) Pain in left knee (05/07/19) Low back pain (05/07/19) Past Medical History (Last Updated 04/15/19 @ 10:17 by Frida Singh MD) Antiphospholipid syndrome (Chronic) Chronic headache disorder (Chronic) GERD (gastroesophageal reflux disease) (Acute) Hypothyroidism (Chronic) Pulmonary embolism (Acute) Systemic lupus (Chronic) Past Surgical History (Last Reviewed 04/08/19 @ 21:30 by Daniela Duran [facility]) History of carpal tunnel release (Resolved) Visit Care Team Role Provider Type Frida Singh MD Attending Provider Physician Primary Care Provider Specialty: [facility] Address: [address] [place] [address], [facility] Email: [email or web address] Physical Therapy Initial Evaluation PT-OP-A Visit Information Start: 05/07/19 14:30 Freq: Status: Active Protocol: Document 05/07/19 14:35 (Rec: 05/07/19 15:52 [id number]) Out-Patient Physical Therapy Visit Information Visit Information Visit Type Initial Evaluation Visit Note IE led by NEERU Marcano Visit Start Time 14:35 Visit Stop Time 15:15 Total Visit Minutes 40 Visit Number 1/ Number of CHARGE NURSE Visits 0 Evaluation Information Evaluation Date 05/07/19 Precautions Precautions Pt has lupus and hx of blood clots/PE. PT-OP-B Current Condition Start: 05/07/19 14:30 Freq: Status: Active Protocol: Document 05/07/19 14:35 (Rec: 05/07/19 15:52 [id number]) Current Condition History of Current Condition Onset Date ~1 mo ago Current Complaints B knee pain, LBP, limited activity tolerance History of Current Condition Pt presents to clinic with primary c/o LBP and B knee pain started a month ago. Pt had x-ray screen in [place] in February which shows L5-S1 mild arthropathy. Pt stated her B knee pain is a severe achy pain in her ant knees, and is aggravated by bending down, walking, and bending her knee. Her back pain is an achy pain in a line at her low back and is aggravated by prolonged standing and getting up from lying down. Resting is the only easer for her knee and back pain. Pt had a pulmonary embolism in September 2018 and she is still under warfarin treatment which is the reason why she gets bruised easily. Pt was also diagnosed with lupus in September 2018 and is receiving treatment but states she does have flair ups occasionally. She c/o decreased activity tolerance and endurance since September 2018. Prior Treatments and Tests XR Feb 2019 showed L5-S1 mild arthropathy Treatment Goals Patient/Caregiver Goals 1. To be pain free during walking, bending over activities 2. Be able to do more activity Personal Factors Other Personal Factors That May Effect Depression Therapy/Recovery Lupus previous PE in September (SOB, Tachycardia at baseline) PT-OP-C Subjective Start: 05/07/19 14:30 Freq: Status: Active Protocol: Document 05/07/19 14:35 HH (Rec: 05/07/19 15:52 [id number]) OP-PT Subjective Patient Comments Patient Comments I really can't do any activity because of my pain. I also get tired really easily. Patient Questionnaires Lower Extremity Functional Scale LEFS Score 28 LEFS Impairment 60 to 79% Impaired (Score 17- 31) Oswestry Low Back Index Oswestry Score 40% Oswestry Impairment 40 to 59% Impaired (Score 40- 59) OP-PT Pain Assessment Location LBP Intensity 8 Scale Used Numeric (1 - 10) Description Aching,With Movement Frequency Frequent Pain Aggravating Factors Position Other Pain Aggravating Factors sitting up from supine position Pain Alleviating Factors Inactivity B knee Pain Location Details ant knee Scale Used Numeric (1 - 10) Description Aching,With Movement Description- Other R 7/10, L 8/10 Frequency Frequent Pain Aggravating Factors Activity,Exercise,Standing, Walking,Stair Climbing,Bending Pain Alleviating Factors Inactivity PT-OP-E Functional Tests Start: 05/07/19 14:30 Freq: Status: Active Protocol: Document 05/07/19 14:35 HH (Rec: 05/07/19 15:52 [id number]) Functional Tests 6 Minute Walk Test Distance none Device Used 535ft Comments SpO2 >98%, HR= 100-110s. Pt reports SOB/fatigue, took one 40 seated break PT-OP-G Mobility & Gait Start: 05/07/19 14:30 Freq: Status: Active Protocol: Document 05/07/19 14:35 HH (Rec: 05/07/19 15:52 [id number]) OP Mobility Evaluation Bed Mobility Rolling demonstrates for bed mobility log roll PT-OP-H Neuro Start: 05/07/19 14:30 Freq: Status: Active Protocol: Document 05/07/19 14:35 HH (Rec: 05/07/19 15:52 [id number]) Sensation Evaluation Gross Sensation Gross Sensation WNL Deep Tendon Reflex & Clonus Assessment Deep Tendon Reflex Bilateral Achilles Deep Tendon Reflex 1+ Diminished Bilateral Patellar Deep Tendon Reflex 1+ Diminished PT-OP-K Range of Motion Start: 05/07/19 14:30 Freq: Status: Active Protocol: Document 05/07/19 14:35 HH (Rec: 05/07/19 15:52 [id number]) Hip Goniometric Range of Motion Hip Right Testing Position Sitting Internal Rotation 35 External Rotation 25 Left Testing Position Sitting Internal Rotation 30 External Rotation 25 Knee Goniometric Range of Motion Knee Right Knee ROM WFL Yes Patient Position Supine Flexion Active (degrees) 95 Extension Active (degrees) 10 Left Knee ROM WFL Yes Patient Position Supine Flexion Active (degrees) 115 Hyper-Extension Active 5 Ankle and Foot Goniometric Range of Motion Ankle and Foot B Testing Position Sitting Dorsiflexion with Knee Flexed 10 Ankle and Foot ROM Limitations Comments Dorsiflexion with knee extended = -5 dg B PT-OP-L Special Tests Start: 05/07/19 14:30 Freq: Status: Active Protocol: Document 05/07/19 14:35 HH (Rec: 05/07/19 15:52 [id number]) Special Tests Knee Special Tests Chele's Test Results -ve Anterior Draw Test Results -ve Varus- 25 Degrees Test Results -ve Valgus- 25 Degrees Test Results -ve Ruslan's Sign Test Results -ve Other Special Tests Special Tests SFMA: MS flexion DN to ankle, limited lumbar flexion MS extension DP with hinging L5, sx reproduction MS rotation DN 50% B, reported stretch sensation Modified prone instability test (sidelying) -ve PT-OP-M Strength Start: 05/07/19 14:30 Freq: Status: Active Protocol: Document 05/07/19 14:35 HH (Rec: 05/07/19 15:52 [id number]) Hip Strength Hip Manual Muscle Testing Right Flexion (L2) 3+ Fair+ Reason Not Measured Muscle Tone Comments unable to achieve abduction MMT position Left Flexion (L2) 3+ Fair+ Knee Strength Knee Manual Muscle Testing Right Flexion (S2) 4 Good Extension (L3) 4 Good Left Flexion (S2) 4 Good Extension (L3) 4 Good Comments B anterior knee pain at 30 degree resisted knee ext Ankle/Foot Strength Ankle and Foot Manual Muscle Testing Bilateral Dorsiflexion (L4) 5 Normal PT-OP-T Assessment and Plan Start: 05/07/19 14:30 Freq: Status: Active Protocol: Document 05/07/19 14:35 HH (Rec: 05/07/19 15:52 HH [id number]) Physical Therapy Assessment Rehab Potential Rehabilitation Potential Good Evaluation Complexity Number of Personal Factors/Comorbidities 3 or More Number of Body Systems Impaired 3 Clinical Presentation at Evaluation Stable Impairments Impairments Activity Tolerance,Balance, Functional Activities, Functional Mobility,Gait,Pain, Posture,ROM,Soft Tissue Mobility,Strength,Tone, Transfers Goals SLS Impairment Pt unable to balance >10 sec during SLS Short Term Goal (STG) Pt will be able to balance >15 sec B during SLS to reflect improved LE strength STG Duration 4 weeks Group Home Goal (LTG) Pt will be able to balance >20 sec B during SLS to reflect improved LE strength LTG Duration 8 weeks 6MWT Impairment Pt ambulated 535 ft during 6 MWT Short Term Goal (STG) Pt will ambulate >800 ft during 6 MWT to improve tolerance for ambulation STG Duration 4 weeks Group Home Goal (LTG) Pt will ambulate >1000 feet during 6 MWT to improve tolerance for ambulation LTG Duration 8 weeks LEFS Impairment Pt scores 28/80 on LEFS Short Term Goal (STG) Pt will score 37/80 on LEFS to improve ability to complete functional activities STG Duration 4 weeks Group Home Goal (LTG) Pt will score 46/80 on LEFS to improve ability to complete functional activities LTG Duration 8 weeks Assessment Summary Assessment Pt is mod complexity 23 yo female presenting to PT with B knee pain and LBP. Pt also has hx of lupus and PE which were both diagnosed in September 2018. Pt demonstrates reproduction of LBP with standing extension, double knee to chest, and PA pressure . Pt has B knee pain reproduction with squatting, resisted knee extension, and palpation over patellar tendon . Pt also demonstrates poor LE strength and endurance and limited activity tolerance. Pt will benefit from skilled therapy to strengthen LEs and hip/core as well as improve general conditioning. Instructed pt on heel slides and maintaining activity level as wayne for HEP. Physical Therapy Plan Frequency and Duration Frequency of Treatment 2x/Week Duration of Treatment 8 weeks Plan of Care Start Date 05/07/19 Plan of Care End Date 07/02/19 Therapeutic Interventions Therapeutic Interventions Aquatic Therapy,Balance Training,Gait Training,Home Exercise Program,Joint Mobilizations,Manual Therapy, Neuromuscular Re-education, Patient/Caregiver Education, Self-Care/Home Management,Soft Tissue Mobilization,Taping, Therapeutic Activities, Therapeutic Exercises Modalities Cold Pack/Ice Massage,Electric Stimulation,Hot Packs, Infrared Therapy,Ultrasound Next Visit Focus/Plan Next Note Type Treatment Note Next Visit Plan Check thoracic mobility MT for B quads, IT band, patellar tendon; lumbar paraspinals Lumbar AROM, core strengthening/stabilization LE strengthening (gravity eliminated) Single leg balance retraining
--- NOTE | 2019-05-07 16:04 | PT.OPPOC ---
Current Diagnoses Pain in right knee (05/07/19) Pain in left knee (05/07/19) Low back pain (05/07/19) Visit Care Team Role Provider Type Frida Singh MD Attending Provider Physician Primary Care Provider Specialty: [facility] Address: [address] [place] [address], [place], [address] Email: [email or web address] Plan Of Care PT-OP-T Assessment and Plan Start: 05/07/19 14:30 Freq: Status: Active Protocol: Document 05/07/19 14:35 HH (Rec: 05/07/19 15:52 HH [id number]) Physical Therapy Assessment Rehab Potential Rehabilitation Potential Good Evaluation Complexity Number of Personal Factors/Comorbidities 3 or More Number of Body Systems Impaired 3 Clinical Presentation at Evaluation Stable Impairments Impairments Activity Tolerance,Balance, Functional Activities, Functional Mobility,Gait,Pain, Posture,ROM,Soft Tissue Mobility,Strength,Tone, Transfers Goals SLS Impairment Pt unable to balance >10 sec during SLS Short Term Goal (STG) Pt will be able to balance >15 sec B during SLS to reflect improved LE strength STG Duration 4 weeks Paint Brush Maker Goal (LTG) Pt will be able to balance >20 sec B during SLS to reflect improved LE strength LTG Duration 8 weeks 6MWT Impairment Pt ambulated 535 ft during 6 MWT Short Term Goal (STG) Pt will ambulate >800 ft during 6 MWT to improve tolerance for ambulation STG Duration 4 weeks Group Home Goal (LTG) Pt will ambulate >1000 feet during 6 MWT to improve tolerance for ambulation LTG Duration 8 weeks LEFS Impairment Pt scores 28/80 on LEFS Short Term Goal (STG) Pt will score 37/80 on LEFS to improve ability to complete functional activities STG Duration 4 weeks Group Home Goal (LTG) Pt will score 46/80 on LEFS to improve ability to complete functional activities LTG Duration 8 weeks Assessment Summary Assessment Pt is mod complexity 23 yo female presenting to PT with B knee pain and LBP. Pt also has hx of lupus and PE which were both diagnosed in September 2018. Pt demonstrates reproduction of LBP with standing extension, double knee to chest, and PA pressure . Pt has B knee pain reproduction with squatting, resisted knee extension, and palpation over patellar tendon . Pt also demonstrates poor LE strength and endurance and limited activity tolerance. Pt will benefit from skilled therapy to strengthen LEs and hip/core as well as improve general conditioning. Instructed pt on heel slides and maintaining activity level as wayne for HEP. Physical Therapy Plan Frequency and Duration Frequency of Treatment 2x/Week Duration of Treatment 8 weeks Plan of Care Start Date 05/07/19 Plan of Care End Date 07/02/19 Therapeutic Interventions Therapeutic Interventions Aquatic Therapy,Balance Training,Gait Training,Home Exercise Program,Joint Mobilizations,Manual Therapy, Neuromuscular Re-education, Patient/Caregiver Education, Self-Care/Home Management,Soft Tissue Mobilization,Taping, Therapeutic Activities, Therapeutic Exercises Modalities Cold Pack/Ice Massage,Electric Stimulation,Hot Packs, Infrared Therapy,Ultrasound Next Visit Focus/Plan Next Note Type Treatment Note Next Visit Plan Check thoracic mobility MT for B quads, IT band, patellar tendon; lumbar paraspinals Lumbar AROM, core strengthening/stabilization LE strengthening (gravity eliminated) Single leg balance retraining Plan of Care Dates Plan of Care Start Date 05/07/19 Plan of Care End Date 07/02/19
--- NOTE | 2019-05-09 11:15 | PT.OTN ---
Current Diagnoses Pain in right knee (05/09/19) Pain in left knee (05/09/19) Low back pain (05/09/19) Physical Therapy Treatment Note PT-OP-A Visit Information Start: 05/07/19 14:30 Freq: Status: Active Protocol: Document 05/09/19 10:32 HH (Rec: 05/09/19 11:15 [id number]) Out-Patient Physical Therapy Visit Information Visit Information Visit Type Treatment Note Visit Note tx led by NEERU Velasco Visit Start Time 10:32 Visit Stop Time 11:15 Total Visit Minutes 43 Visit Number 2/9 Number of PRIVATE ADVISOR Visits 0 PT-OP-B Current Condition Start: 05/07/19 14:30 Freq: Status: Active Protocol: Document 05/07/19 14:35 HH (Rec: 05/07/19 15:52 [id number]) Current Condition History of Current Condition Onset Date ~1 mo ago Current Complaints B knee pain, LBP, limited activity tolerance History of Current Condition Pt presents to clinic with primary c/o LBP and B knee pain started a month ago. Pt had x-ray screen in [place] in February which shows L5-S1 mild arthropathy. Pt stated her B knee pain is a severe achy pain in her ant knees, and is aggravated by bending down, walking, and bending her knee. Her back pain is an achy pain in a line at her low back and is aggravated by prolonged standing and getting up from lying down. Resting is the only easer for her knee and back pain. Pt had a pulmonary embolism in September 2018 and she is still under warfarin treatment which is the reason why she gets bruised easily. Pt was also diagnosed with lupus in September 2018 and is receiving treatment but states she does have flair ups occasionally. She c/o decreased activity tolerance and endurance since September 2018. Prior Treatments and Tests XR Feb 2019 showed L5-S1 mild arthropathy Treatment Goals Patient/Caregiver Goals 1. To be pain free during walking, bending over activities 2. Be able to do more activity Personal Factors Other Personal Factors That May Effect Depression Therapy/Recovery Lupus previous PE in September (SOB, Tachycardia at baseline) PT-OP-C Subjective Start: 05/07/19 14:30 Freq: Status: Active Protocol: Document 05/09/19 10:32 HH (Rec: 05/09/19 11:15 [id number]) OP-PT Subjective Patient Comments Patient Comments I felt like had a flare up with Lupus yesterday, especially on my face. But i feel fine today. PT-OP-E Functional Tests Start: 05/07/19 14:30 Freq: Status: Active Protocol: Document 05/07/19 14:35 HH (Rec: 05/07/19 15:52 [id number]) Functional Tests 6 Minute Walk Test Distance none Device Used 535ft Comments SpO2 >98%, HR= 100-110s. Pt reports SOB/fatigue, took one 40 seated break PT-OP-G Mobility & Gait Start: 05/07/19 14:30 Freq: Status: Active Protocol: Document 05/07/19 14:35 HH (Rec: 05/07/19 15:52 [id number]) OP Mobility Evaluation Bed Mobility Rolling demonstrates for bed mobility log roll PT-OP-H Neuro Start: 05/07/19 14:30 Freq: Status: Active Protocol: Document 05/07/19 14:35 HH (Rec: 05/07/19 15:52 [id number]) Sensation Evaluation Gross Sensation Gross Sensation WNL Deep Tendon Reflex & Clonus Assessment Deep Tendon Reflex Bilateral Achilles Deep Tendon Reflex 1+ Diminished Bilateral Patellar Deep Tendon Reflex 1+ Diminished PT-OP-K Range of Motion Start: 05/07/19 14:30 Freq: Status: Active Protocol: Document 05/07/19 14:35 HH (Rec: 05/07/19 15:52 [id number]) Hip Goniometric Range of Motion Hip Right Testing Position Sitting Internal Rotation 35 External Rotation 25 Left Testing Position Sitting Internal Rotation 30 External Rotation 25 Knee Goniometric Range of Motion Knee Right Knee ROM WFL Yes Patient Position Supine Flexion Active (degrees) 95 Extension Active (degrees) 10 Left Knee ROM WFL Yes Patient Position Supine Flexion Active (degrees) 115 Hyper-Extension Active 5 Ankle and Foot Goniometric Range of Motion Ankle and Foot B Testing Position Sitting Dorsiflexion with Knee Flexed 10 Ankle and Foot ROM Limitations Comments Dorsiflexion with knee extended = -5 dg B PT-OP-L Special Tests Start: 05/07/19 14:30 Freq: Status: Active Protocol: Document 05/07/19 14:35 HH (Rec: 05/07/19 15:52 [id number]) Special Tests Knee Special Tests Chele's Test Results -ve Anterior Draw Test Results -ve Varus- 25 Degrees Test Results -ve Valgus- 25 Degrees Test Results -ve Ruslan's Sign Test Results -ve Other Special Tests Special Tests SFMA: MS flexion DN to ankle, limited lumbar flexion MS extension DP with hinging L5, sx reproduction MS rotation DN 50% B, reported stretch sensation Modified prone instability test (sidelying) -ve PT-OP-M Strength Start: 05/07/19 14:30 Freq: Status: Active Protocol: Document 05/07/19 14:35 HH (Rec: 05/07/19 15:52 HH [id number]) Hip Strength Hip Manual Muscle Testing Right Flexion (L2) 3+ Fair+ Reason Not Measured Muscle Tone Comments unable to achieve abduction MMT position Left Flexion (L2) 3+ Fair+ Knee Strength Knee Manual Muscle Testing Right Flexion (S2) 4 Good Extension (L3) 4 Good Left Flexion (S2) 4 Good Extension (L3) 4 Good Comments B anterior knee pain at 30 degree resisted knee ext Ankle/Foot Strength Ankle and Foot Manual Muscle Testing Bilateral Dorsiflexion (L4) 5 Normal PT-OP-Q Treatments Start: 05/07/19 14:30 Freq: Status: Active Protocol: Document 05/09/19 10:32 HH (Rec: 05/09/19 11:15 [id number]) Cardio Equipment Recumbent Stepper (Sci-Fit) Duration (Minutes) 5 Resistance 1 Gym Equipment Shuttle Rebound B squats Reps/Duration #50-75 Comments 12 x 2 Therapeutic Exercises Supine Exercises bridging Supine Exercise Name band at B knees Equipment Used with level 1 band Reps/Minutes 4 mins Comments small range bridging Prone Exercises child pose Side bilateral Reps/Minutes 2 mins cat camel 2\ Prone Exercise Name on elbows and knees Reps/Minutes 3 mins Comments cues on isolated trunk movements cat camel Reps/Minutes 4 mins Comments pt has difficulty engaging trunk ext and flex Sitting Exercises seated pelvic tilt Side bilateral Reps/Minutes 3 mins Comments small range pelvic tilt Standing Exercises standing T/S extension Standing Exercise Name prayer stretch position, hands on grab bar Side bilateral Reps/Minutes 3 mins Manual Therapy Treatment Soft Tissue Mobilization quadriceps Mobilization Type Instrument Assisted Intensity/Depth Moderate Body Position Supine Comments with rolling pin PT-OP-T Assessment and Plan Start: 05/07/19 14:30 Freq: Status: Active Protocol: Document 05/09/19 10:32 (Rec: 05/09/19 11:15 [id number]) Physical Therapy Assessment Goals SLS Impairment Pt unable to balance >10 sec during SLS Short Term Goal (STG) Pt will be able to balance >15 sec B during SLS to reflect improved LE strength STG Duration 4 weeks Long-Term Goal (LTG) Pt will be able to balance >20 sec B during SLS to reflect improved LE strength LTG Duration 8 weeks 6MWT Impairment Pt ambulated 535 ft during 6 MWT Short Term Goal (STG) Pt will ambulate >800 ft during 6 MWT to improve tolerance for ambulation STG Duration 4 weeks Set Key Driver Goal (LTG) Pt will ambulate >1000 feet during 6 MWT to improve tolerance for ambulation LTG Duration 8 weeks LEFS Impairment Pt scores 28/80 on LEFS Short Term Goal (STG) Pt will score 37/80 on LEFS to improve ability to complete functional activities STG Duration 4 weeks Long-Term Goal (LTG) Pt will score 46/80 on LEFS to improve ability to complete functional activities LTG Duration 8 weeks Assessment Summary Assessment Tx focused on lumbar mobility, LE strengthening. Pt has very poor bodyawareness and needed freqent cues to facilitate isolated movements. Physical Therapy Plan Next Visit Focus/Plan Next Note Type Treatment Note Next Visit Plan assess tolerance for post tx MT for B quads, IT band, patellar tendon; lumbar paraspinals Lumbar AROM, core strengthening/stabilization LE strengthening (gravity eliminated) Single leg balance retraining
--- NOTE | 2019-05-16 17:35 | PT.OTN ---
Current Diagnoses Pain in right knee (05/16/19) Pain in left knee (05/16/19) Low back pain (05/16/19) Physical Therapy Treatment Note PT-OP-A Visit Information Start: 05/07/19 14:30 Freq: Status: Active Protocol: Document 05/16/19 16:48 HH (Rec: 05/16/19 17:34 [id number]) Out-Patient Physical Therapy Visit Information Visit Information Visit Type Treatment Note Visit Start Time 16:48 Visit Stop Time 17:30 Total Visit Minutes 42 Visit Number 3/9 Number of INVOICE CODER Visits 0 PT-OP-B Current Condition Start: 05/07/19 14:30 Freq: Status: Active Protocol: Document 05/07/19 14:35 HH (Rec: 05/07/19 15:52 HH [id number]) Current Condition History of Current Condition Onset Date ~1 mo ago Current Complaints B knee pain, LBP, limited activity tolerance History of Current Condition Pt presents to clinic with primary c/o LBP and B knee pain started a month ago. Pt had x-ray screen in [place] in February which shows L5-S1 mild arthropathy. Pt stated her B knee pain is a severe achy pain in her ant knees, and is aggravated by bending down, walking, and bending her knee. Her back pain is an achy pain in a line at her low back and is aggravated by prolonged standing and getting up from lying down. Resting is the only easer for her knee and back pain. Pt had a pulmonary embolism in September 2018 and she is still under warfarin treatment which is the reason why she gets bruised easily. Pt was also diagnosed with lupus in September 2018 and is receiving treatment but states she does have flair ups occasionally. She c/o decreased activity tolerance and endurance since September 2018. Prior Treatments and Tests XR Feb 2019 showed L5-S1 mild arthropathy Treatment Goals Patient/Caregiver Goals 1. To be pain free during walking, bending over activities 2. Be able to do more activity Personal Factors Other Personal Factors That May Effect Depression Therapy/Recovery Lupus previous PE in September (SOB, Tachycardia at baseline) PT-OP-C Subjective Start: 05/07/19 14:30 Freq: Status: Active Protocol: Document 05/16/19 16:48 HH (Rec: 05/16/19 17:34 [id number]) OP-PT Subjective Patient Comments Patient Comments My knees feel pretty good since last visit. The ex did make me feel a bit sore but i am able to recover within a day. I still have pain especially when i got up from my bed every time. PT-OP-E Functional Tests Start: 05/07/19 14:30 Freq: Status: Active Protocol: Document 05/07/19 14:35 HH (Rec: 05/07/19 15:52 [id number]) Functional Tests 6 Minute Walk Test Distance none Device Used 535ft Comments SpO2 >98%, HR= 100-110s. Pt reports SOB/fatigue, took one 40 seated break PT-OP-G Mobility & Gait Start: 05/07/19 14:30 Freq: Status: Active Protocol: Document 05/07/19 14:35 HH (Rec: 05/07/19 15:52 [id number]) OP Mobility Evaluation Bed Mobility Rolling demonstrates for bed mobility log roll PT-OP-H Neuro Start: 05/07/19 14:30 Freq: Status: Active Protocol: Document 05/07/19 14:35 HH (Rec: 05/07/19 15:52 [id number]) Sensation Evaluation Gross Sensation Gross Sensation WNL Deep Tendon Reflex & Clonus Assessment Deep Tendon Reflex Bilateral Achilles Deep Tendon Reflex 1+ Diminished Bilateral Patellar Deep Tendon Reflex 1+ Diminished PT-OP-K Range of Motion Start: 05/07/19 14:30 Freq: Status: Active Protocol: Document 05/07/19 14:35 HH (Rec: 05/07/19 15:52 [id number]) Hip Goniometric Range of Motion Hip Right Testing Position Sitting Internal Rotation 35 External Rotation 25 Left Testing Position Sitting Internal Rotation 30 External Rotation 25 Knee Goniometric Range of Motion Knee Right Knee ROM WFL Yes Patient Position Supine Flexion Active (degrees) 95 Extension Active (degrees) 10 Left Knee ROM WFL Yes Patient Position Supine Flexion Active (degrees) 115 Hyper-Extension Active 5 Ankle and Foot Goniometric Range of Motion Ankle and Foot B Testing Position Sitting Dorsiflexion with Knee Flexed 10 Ankle and Foot ROM Limitations Comments Dorsiflexion with knee extended = -5 dg B PT-OP-L Special Tests Start: 05/07/19 14:30 Freq: Status: Active Protocol: Document 05/07/19 14:35 HH (Rec: 05/07/19 15:52 [id number]) Special Tests Knee Special Tests Chele's Test Results -ve Anterior Draw Test Results -ve Varus- 25 Degrees Test Results -ve Valgus- 25 Degrees Test Results -ve Ruslan's Sign Test Results -ve Other Special Tests Special Tests SFMA: MS flexion DN to ankle, limited lumbar flexion MS extension DP with hinging L5, sx reproduction MS rotation DN 50% B, reported stretch sensation Modified prone instability test (sidelying) -ve PT-OP-M Strength Start: 05/07/19 14:30 Freq: Status: Active Protocol: Document 05/07/19 14:35 HH (Rec: 05/07/19 15:52 [id number]) Hip Strength Hip Manual Muscle Testing Right Flexion (L2) 3+ Fair+ Reason Not Measured Muscle Tone Comments unable to achieve abduction MMT position Left Flexion (L2) 3+ Fair+ Knee Strength Knee Manual Muscle Testing Right Flexion (S2) 4 Good Extension (L3) 4 Good Left Flexion (S2) 4 Good Extension (L3) 4 Good Comments B anterior knee pain at 30 degree resisted knee ext Ankle/Foot Strength Ankle and Foot Manual Muscle Testing Bilateral Dorsiflexion (L4) 5 Normal PT-OP-Q Treatments Start: 05/07/19 14:30 Freq: Status: Active Protocol: Document 05/16/19 16:48 HH (Rec: 05/16/19 17:34 [id number]) Cardio Equipment Recumbent Stepper (Sci-Fit) Duration (Minutes) 5 Resistance 1 Gym Equipment Shuttle Rebound B squats Reps/Duration #75 Comments 20 x 2 Therapeutic Exercises Supine Exercises bridging Supine Exercise Name band at B knees Equipment Used with level 1 band Reps/Minutes 4 mins Comments small range bridging Prone Exercises child pose Prone Exercise Name f/b prone ext Side bilateral Equipment Used elbows on chair Reps/Minutes 4 mins cat camel 2\ Prone Exercise Name on elbows and knees Reps/Minutes 4 mins Comments cues on isolated trunk movements Sitting Exercises seated pelvic tilt Side bilateral Reps/Minutes 3 mins Comments small range pelvic tilt Standing Exercises standing flexoin Standing Exercise Name lumbar flexion with midshin touch Reps/Minutes 8 x2 Therapeutic Activity Therapeutic Activity bed mobility Name log roll for supine to sit Reps/Minutes 5 times Comments log roll f/b side push up Manual Therapy Treatment Soft Tissue Mobilization quadriceps Mobilization Type Instrument Assisted Intensity/Depth Moderate Body Position Supine Comments with rolling pin Joint Mobilizations lumbar distraction Grade II Body Position Supine Reps/Duration 10 secs hold x 8 PT-OP-T Assessment and Plan Start: 05/07/19 14:30 Freq: Status: Active Protocol: Document 05/16/19 16:48 HH (Rec: 05/16/19 17:34 HH [id number]) Physical Therapy Assessment Goals SLS Impairment Pt unable to balance >10 sec during SLS Short Term Goal (STG) Pt will be able to balance >15 sec B during SLS to reflect improved LE strength STG Duration 4 weeks Usp Goal (LTG) Pt will be able to balance >20 sec B during SLS to reflect improved LE strength LTG Duration 8 weeks 6MWT Impairment Pt ambulated 535 ft during 6 MWT Short Term Goal (STG) Pt will ambulate >800 ft during 6 MWT to improve tolerance for ambulation STG Duration 4 weeks Usp Goal (LTG) Pt will ambulate >1000 feet during 6 MWT to improve tolerance for ambulation LTG Duration 8 weeks LEFS Impairment Pt scores 28/80 on LEFS Short Term Goal (STG) Pt will score 37/80 on LEFS to improve ability to complete functional activities STG Duration 4 weeks Usp Goal (LTG) Pt will score 46/80 on LEFS to improve ability to complete functional activities LTG Duration 8 weeks Assessment Summary Assessment Educated pt to use log roll for supine to sit today and it did relieve her back pain. Pt cont to have increased back pain with lumbar extension and Ant pelvic tilt. Introduced pt child pose and prone extension on chair today and she wayne well. All educated pt on weight loss program by increase walking distance and participating pool class since she reports she is very sedentary d/t playing video game 10-12 hours straight. Physical Therapy Plan Next Visit Focus/Plan Next Note Type Treatment Note Next Visit Plan assess tolerance for post tx MT for B quads, IT band, patellar tendon; lumbar paraspinals Lumbar AROM, core strengthening/stabilization LE strengthening (gravity eliminated) Single leg balance retraining
--- NOTE | 2019-05-21 16:07 | PT.OTN ---
Current Diagnoses Pain in right knee (05/21/19) Pain in left knee (05/21/19) Low back pain (05/21/19) Physical Therapy Treatment Note PT-OP-A Visit Information Start: 05/07/19 14:30 Freq: Status: Active Protocol: Document 05/21/19 15:26 HH (Rec: 05/21/19 16:06 [id number]) Out-Patient Physical Therapy Visit Information Visit Information Visit Type Treatment Note Visit Start Time 15:26 Visit Stop Time 16:00 Total Visit Minutes 39 Visit Number 4/9 Number of SUPERVISOR COIN MACHINE Visits 0 PT-OP-B Current Condition Start: 05/07/19 14:30 Freq: Status: Active Protocol: Document 05/07/19 14:35 HH (Rec: 05/07/19 15:52 [id number]) Current Condition History of Current Condition Onset Date ~1 mo ago Current Complaints B knee pain, LBP, limited activity tolerance History of Current Condition Pt presents to clinic with primary c/o LBP and B knee pain started a month ago. Pt had x-ray screen in [place] in February which shows L5-S1 mild arthropathy. Pt stated her B knee pain is a severe achy pain in her ant knees, and is aggravated by bending down, walking, and bending her knee. Her back pain is an achy pain in a line at her low back and is aggravated by prolonged standing and getting up from lying down. Resting is the only easer for her knee and back pain. Pt had a pulmonary embolism in September 2018 and she is still under warfarin treatment which is the reason why she gets bruised easily. Pt was also diagnosed with lupus in September 2018 and is receiving treatment but states she does have flair ups occasionally. She c/o decreased activity tolerance and endurance since September 2018. Prior Treatments and Tests XR Feb 2019 showed L5-S1 mild arthropathy Treatment Goals Patient/Caregiver Goals 1. To be pain free during walking, bending over activities 2. Be able to do more activity Personal Factors Other Personal Factors That May Effect Depression Therapy/Recovery Lupus previous PE in September (SOB, Tachycardia at baseline) PT-OP-C Subjective Start: 05/07/19 14:30 Freq: Status: Active Protocol: Document 05/21/19 15:26 HH (Rec: 05/21/19 16:06 [id number]) OP-PT Subjective Patient Comments Patient Comments Mckenzie been doing good and my back pain didnt wake me up recently. Mckenzie been moving more as well in the house. The log roll method does help me quite a bit. Patient Reported Progress Improving PT-OP-E Functional Tests Start: 05/07/19 14:30 Freq: Status: Active Protocol: Document 05/07/19 14:35 HH (Rec: 05/07/19 15:52 [id number]) Functional Tests 6 Minute Walk Test Distance none Device Used 535ft Comments SpO2 >98%, HR= 100-110s. Pt reports SOB/fatigue, took one 40 seated break PT-OP-G Mobility & Gait Start: 05/07/19 14:30 Freq: Status: Active Protocol: Document 05/07/19 14:35 HH (Rec: 05/07/19 15:52 [id number]) OP Mobility Evaluation Bed Mobility Rolling demonstrates for bed mobility log roll PT-OP-H Neuro Start: 05/07/19 14:30 Freq: Status: Active Protocol: Document 05/07/19 14:35 HH (Rec: 05/07/19 15:52 [id number]) Sensation Evaluation Gross Sensation Gross Sensation WNL Deep Tendon Reflex & Clonus Assessment Deep Tendon Reflex Bilateral Achilles Deep Tendon Reflex 1+ Diminished Bilateral Patellar Deep Tendon Reflex 1+ Diminished PT-OP-K Range of Motion Start: 05/07/19 14:30 Freq: Status: Active Protocol: Document 05/07/19 14:35 HH (Rec: 05/07/19 15:52 [id number]) Hip Goniometric Range of Motion Hip Right Testing Position Sitting Internal Rotation 35 External Rotation 25 Left Testing Position Sitting Internal Rotation 30 External Rotation 25 Knee Goniometric Range of Motion Knee Right Knee ROM WFL Yes Patient Position Supine Flexion Active (degrees) 95 Extension Active (degrees) 10 Left Knee ROM WFL Yes Patient Position Supine Flexion Active (degrees) 115 Hyper-Extension Active 5 Ankle and Foot Goniometric Range of Motion Ankle and Foot B Testing Position Sitting Dorsiflexion with Knee Flexed 10 Ankle and Foot ROM Limitations Comments Dorsiflexion with knee extended = -5 dg B PT-OP-L Special Tests Start: 05/07/19 14:30 Freq: Status: Active Protocol: Document 05/07/19 14:35 HH (Rec: 05/07/19 15:52 [id number]) Special Tests Knee Special Tests Chele's Test Results -ve Anterior Draw Test Results -ve Varus- 25 Degrees Test Results -ve Valgus- 25 Degrees Test Results -ve Ruslan's Sign Test Results -ve Other Special Tests Special Tests SFMA: MS flexion DN to ankle, limited lumbar flexion MS extension DP with hinging L5, sx reproduction MS rotation DN 50% B, reported stretch sensation Modified prone instability test (sidelying) -ve PT-OP-M Strength Start: 05/07/19 14:30 Freq: Status: Active Protocol: Document 05/07/19 14:35 HH (Rec: 05/07/19 15:52 [id number]) Hip Strength Hip Manual Muscle Testing Right Flexion (L2) 3+ Fair+ Reason Not Measured Muscle Tone Comments unable to achieve abduction MMT position Left Flexion (L2) 3+ Fair+ Knee Strength Knee Manual Muscle Testing Right Flexion (S2) 4 Good Extension (L3) 4 Good Left Flexion (S2) 4 Good Extension (L3) 4 Good Comments B anterior knee pain at 30 degree resisted knee ext Ankle/Foot Strength Ankle and Foot Manual Muscle Testing Bilateral Dorsiflexion (L4) 5 Normal PT-OP-Q Treatments Start: 05/07/19 14:30 Freq: Status: Active Protocol: Document 05/21/19 15:26 HH (Rec: 05/21/19 16:06 [id number]) Cardio Equipment Recumbent Stepper (Sci-Fit) Duration (Minutes) 5 Resistance 1 Gym Equipment Shuttle Rebound single leg squat Reps/Duration #75 Comments 10 x2 each side cues on preventing knee valgus B squats Reps/Duration #75-#87 Comments 20 x 2, f/b 15reps Therapeutic Exercises Supine Exercises marches Side bilateral Reps/Minutes 10 x 2 on each side Comments with DIANA SLR Supine Exercise Name cues on DIANA Side bilateral Reps/Minutes 5 on each side x2 Comments slow eccentric control tennis ball release Supine Exercise Name R lumbar Equipment Used tennis ball Reps/Minutes 2 mins Prone Exercises child pose Prone Exercise Name f/b prone ext Side bilateral Equipment Used elbows on chair Reps/Minutes 4 mins cat camel 2\ Prone Exercise Name on elbows and knees Reps/Minutes 4 mins Comments cues on isolated trunk movements Standing Exercises SLS Standing Exercise Name next to grab bar Side bilateral Equipment Used grab bar Reps/Minutes 10 sec each x 2 per side f/b knee flexed position Comments knee extended f/b knee flexed standing T/S extension Standing Exercise Name prayer stretch position, hands on grab bar Side bilateral Reps/Minutes 3 mins PT-OP-T Assessment and Plan Start: 05/07/19 14:30 Freq: Status: Active Protocol: Document 05/21/19 15:26 HH (Rec: 05/21/19 16:06 HH [id number]) Physical Therapy Assessment Goals SLS Impairment Pt unable to balance >10 sec during SLS Short Term Goal (STG) Pt will be able to balance >15 sec B during SLS to reflect improved LE strength STG Duration 4 weeks Prison Goal (LTG) Pt will be able to balance >20 sec B during SLS to reflect improved LE strength LTG Duration 8 weeks 6MWT Impairment Pt ambulated 535 ft during 6 MWT Short Term Goal (STG) Pt will ambulate >800 ft during 6 MWT to improve tolerance for ambulation STG Duration 4 weeks Prison Goal (LTG) Pt will ambulate >1000 feet during 6 MWT to improve tolerance for ambulation LTG Duration 8 weeks LEFS Impairment Pt scores 28/80 on LEFS Short Term Goal (STG) Pt will score 37/80 on LEFS to improve ability to complete functional activities STG Duration 4 weeks Supplies Packer Goal (LTG) Pt will score 46/80 on LEFS to improve ability to complete functional activities LTG Duration 8 weeks Assessment Summary Assessment Pt responded very well with log roll method without any back pain. tx focused on B LE strengthening and core stabilization. Pt fatigue quickly after leg press and cont need cues trunk ROM ex such as catcamel and prone ext . Physical Therapy Plan Next Visit Focus/Plan Next Note Type Treatment Note Next Visit Plan assess tolerance for post tx MT for B quads, IT band, patellar tendon; lumbar paraspinals Lumbar AROM, core strengthening/stabilization LE strengthening (gravity eliminated) Single leg balance retraining
--- NOTE | 2019-05-23 17:49 | PT.OTN ---
Current Diagnoses Pain in right knee (05/23/19) Pain in left knee (05/23/19) Low back pain (05/23/19) Physical Therapy Treatment Note PT-OP-A Visit Information Start: 05/07/19 14:30 Freq: Status: Active Protocol: Document 05/23/19 16:03 HH (Rec: 05/23/19 17:49 [id number]) Out-Patient Physical Therapy Visit Information Visit Information Visit Type Treatment Note Visit Start Time 16:03 Visit Stop Time 16:45 Total Visit Minutes 42 Visit Number 5/9 Number of KITCHEN STEWARDESS Visits 0 PT-OP-B Current Condition Start: 05/07/19 14:30 Freq: Status: Active Protocol: Document 05/07/19 14:35 HH (Rec: 05/07/19 15:52 HH [id number]) Current Condition History of Current Condition Onset Date ~1 mo ago Current Complaints B knee pain, LBP, limited activity tolerance History of Current Condition Pt presents to clinic with primary c/o LBP and B knee pain started a month ago. Pt had x-ray screen in [place] in February which shows L5-S1 mild arthropathy. Pt stated her B knee pain is a severe achy pain in her ant knees, and is aggravated by bending down, walking, and bending her knee. Her back pain is an achy pain in a line at her low back and is aggravated by prolonged standing and getting up from lying down. Resting is the only easer for her knee and back pain. Pt had a pulmonary embolism in September 2018 and she is still under warfarin treatment which is the reason why she gets bruised easily. Pt was also diagnosed with lupus in September 2018 and is receiving treatment but states she does have flair ups occasionally. She c/o decreased activity tolerance and endurance since September 2018. Prior Treatments and Tests XR Feb 2019 showed L5-S1 mild arthropathy Treatment Goals Patient/Caregiver Goals 1. To be pain free during walking, bending over activities 2. Be able to do more activity Personal Factors Other Personal Factors That May Effect Depression Therapy/Recovery Lupus previous PE in September (SOB, Tachycardia at baseline) PT-OP-C Subjective Start: 05/07/19 14:30 Freq: Status: Active Protocol: Document 05/23/19 16:03 HH (Rec: 05/23/19 17:49 [id number]) OP-PT Subjective Patient Comments Patient Comments My back has been feeling really good lately. My knee got really sore for the past two days after last session. Patient Reported Progress Improving PT-OP-E Functional Tests Start: 05/07/19 14:30 Freq: Status: Active Protocol: Document 05/07/19 14:35 HH (Rec: 05/07/19 15:52 [id number]) Functional Tests 6 Minute Walk Test Distance none Device Used 535ft Comments SpO2 >98%, HR= 100-110s. Pt reports SOB/fatigue, took one 40 seated break PT-OP-G Mobility & Gait Start: 05/07/19 14:30 Freq: Status: Active Protocol: Document 05/07/19 14:35 HH (Rec: 05/07/19 15:52 [id number]) OP Mobility Evaluation Bed Mobility Rolling demonstrates for bed mobility log roll PT-OP-H Neuro Start: 05/07/19 14:30 Freq: Status: Active Protocol: Document 05/07/19 14:35 HH (Rec: 05/07/19 15:52 [id number]) Sensation Evaluation Gross Sensation Gross Sensation WNL Deep Tendon Reflex & Clonus Assessment Deep Tendon Reflex Bilateral Achilles Deep Tendon Reflex 1+ Diminished Bilateral Patellar Deep Tendon Reflex 1+ Diminished PT-OP-K Range of Motion Start: 05/07/19 14:30 Freq: Status: Active Protocol: Document 05/07/19 14:35 HH (Rec: 05/07/19 15:52 [id number]) Hip Goniometric Range of Motion Hip Right Testing Position Sitting Internal Rotation 35 External Rotation 25 Left Testing Position Sitting Internal Rotation 30 External Rotation 25 Knee Goniometric Range of Motion Knee Right Knee ROM WFL Yes Patient Position Supine Flexion Active (degrees) 95 Extension Active (degrees) 10 Left Knee ROM WFL Yes Patient Position Supine Flexion Active (degrees) 115 Hyper-Extension Active 5 Ankle and Foot Goniometric Range of Motion Ankle and Foot B Testing Position Sitting Dorsiflexion with Knee Flexed 10 Ankle and Foot ROM Limitations Comments Dorsiflexion with knee extended = -5 dg B PT-OP-L Special Tests Start: 05/07/19 14:30 Freq: Status: Active Protocol: Document 05/07/19 14:35 HH (Rec: 05/07/19 15:52 [id number]) Special Tests Knee Special Tests Chele's Test Results -ve Anterior Draw Test Results -ve Varus- 25 Degrees Test Results -ve Valgus- 25 Degrees Test Results -ve Ruslan's Sign Test Results -ve Other Special Tests Special Tests SFMA: MS flexion DN to ankle, limited lumbar flexion MS extension DP with hinging L5, sx reproduction MS rotation DN 50% B, reported stretch sensation Modified prone instability test (sidelying) -ve PT-OP-M Strength Start: 05/07/19 14:30 Freq: Status: Active Protocol: Document 05/07/19 14:35 HH (Rec: 05/07/19 15:52 [id number]) Hip Strength Hip Manual Muscle Testing Right Flexion (L2) 3+ Fair+ Reason Not Measured Muscle Tone Comments unable to achieve abduction MMT position Left Flexion (L2) 3+ Fair+ Knee Strength Knee Manual Muscle Testing Right Flexion (S2) 4 Good Extension (L3) 4 Good Left Flexion (S2) 4 Good Extension (L3) 4 Good Comments B anterior knee pain at 30 degree resisted knee ext Ankle/Foot Strength Ankle and Foot Manual Muscle Testing Bilateral Dorsiflexion (L4) 5 Normal PT-OP-Q Treatments Start: 05/07/19 14:30 Freq: Status: Active Protocol: Document 05/23/19 16:03 HH (Rec: 05/23/19 17:49 HH [id number]) Cardio Equipment Recumbent Stepper (Sci-Fit) Duration (Minutes) 5 Resistance 5 Therapeutic Exercises Supine Exercises marches Side bilateral Reps/Minutes 10 x 2 on each side Comments with DIANA tennis ball release Supine Exercise Name B lumbar Equipment Used tennis ball Reps/Minutes 2 mins bridging Supine Exercise Name band at B knees Reps/Minutes 2 mins Comments small range bridging, cues on PPT Standing Exercises ball pick up man Side bilateral Equipment Used 3lbs ball Reps/Minutes 8 x2 Comments from mid martinez level to hip level bend over with trunk rotation Side bilateral Equipment Used 3lbs ball Reps/Minutes 8 x 2 Comments placing ball between two chairs standing flexoin Standing Exercise Name lumbar flexion with midshin touch Side bilateral Reps/Minutes 8 x2 Comments deadlift position, cues on PPT during extension standing T/S extension Standing Exercise Name prayer stretch position, hands on grab bar Side bilateral Reps/Minutes 3 mins PT-OP-T Assessment and Plan Start: 05/07/19 14:30 Freq: Status: Active Protocol: Document 05/23/19 16:03 (Rec: 05/23/19 17:49 [id number]) Physical Therapy Assessment Goals SLS Impairment Pt unable to balance >10 sec during SLS Short Term Goal (STG) Pt will be able to balance >15 sec B during SLS to reflect improved LE strength STG Duration 4 weeks Jail Goal (LTG) Pt will be able to balance >20 sec B during SLS to reflect improved LE strength LTG Duration 8 weeks 6MWT Impairment Pt ambulated 535 ft during 6 MWT Short Term Goal (STG) Pt will ambulate >800 ft during 6 MWT to improve tolerance for ambulation STG Duration 4 weeks Jail Goal (LTG) Pt will ambulate >1000 feet during 6 MWT to improve tolerance for ambulation LTG Duration 8 weeks LEFS Impairment Pt scores 28/80 on LEFS Short Term Goal (STG) Pt will score 37/80 on LEFS to improve ability to complete functional activities STG Duration 4 weeks Office Clerk Assistant Goal (LTG) Pt will score 46/80 on LEFS to improve ability to complete functional activities LTG Duration 8 weeks Assessment Summary Assessment Pt has B quad soreness from last visit. Focused on hip and trunk ex today. Pt reports her pain tends to decrease with PPT for trunk extension. Pt did report of increase low back tightness at the end of session. Educated to do trunk flexion and tennis ball release. Physical Therapy Plan Next Visit Focus/Plan Next Note Type Treatment Note Next Visit Plan assess tolerance for post tx MT for B quads, IT band, patellar tendon; lumbar paraspinals Lumbar AROM, core strengthening/stabilization LE strengthening (gravity eliminated) Single leg balance retraining
--- NOTE | 2019-05-30 14:09 | PT.OTN ---
Current Diagnoses Pain in right knee (05/30/19) Pain in left knee (05/30/19) Low back pain (05/30/19) Physical Therapy Treatment Note PT-OP-A Visit Information Start: 05/07/19 14:30 Freq: Status: Active Protocol: Document 05/30/19 13:10 HH (Rec: 05/30/19 14:09 [id number]) Out-Patient Physical Therapy Visit Information Visit Information Visit Type Treatment Note Visit Start Time 13:10 Visit Stop Time 13:55 Total Visit Minutes 45 Visit Number 6/9 Number of PHYSICAL INTEGRATION PRACTITIONER Visits 0 PT-OP-B Current Condition Start: 05/07/19 14:30 Freq: Status: Active Protocol: Document 05/07/19 14:35 HH (Rec: 05/07/19 15:52 HH [id number]) Current Condition History of Current Condition Onset Date ~1 mo ago Current Complaints B knee pain, LBP, limited activity tolerance History of Current Condition Pt presents to clinic with primary c/o LBP and B knee pain started a month ago. Pt had x-ray screen in [place] in February which shows L5-S1 mild arthropathy. Pt stated her B knee pain is a severe achy pain in her ant knees, and is aggravated by bending down, walking, and bending her knee. Her back pain is an achy pain in a line at her low back and is aggravated by prolonged standing and getting up from lying down. Resting is the only easer for her knee and back pain. Pt had a pulmonary embolism in September 2018 and she is still under warfarin treatment which is the reason why she gets bruised easily. Pt was also diagnosed with lupus in September 2018 and is receiving treatment but states she does have flair ups occasionally. She c/o decreased activity tolerance and endurance since September 2018. Prior Treatments and Tests XR Feb 2019 showed L5-S1 mild arthropathy Treatment Goals Patient/Caregiver Goals 1. To be pain free during walking, bending over activities 2. Be able to do more activity Personal Factors Other Personal Factors That May Effect Depression Therapy/Recovery Lupus previous PE in September (SOB, Tachycardia at baseline) PT-OP-C Subjective Start: 05/07/19 14:30 Freq: Status: Active Protocol: Document 05/30/19 13:10 HH (Rec: 05/30/19 14:09 [id number]) OP-PT Subjective Patient Comments Patient Comments I cancelled last appt since i got really sore from using the pool on monday and monday. My knees were just so tired. But my back and knees have been doing pretty good. Patient Reported Progress Improving PT-OP-E Functional Tests Start: 05/07/19 14:30 Freq: Status: Active Protocol: Document 05/07/19 14:35 HH (Rec: 05/07/19 15:52 [id number]) Functional Tests 6 Minute Walk Test Distance none Device Used 535ft Comments SpO2 >98%, HR= 100-110s. Pt reports SOB/fatigue, took one 40 seated break PT-OP-G Mobility & Gait Start: 05/07/19 14:30 Freq: Status: Active Protocol: Document 05/07/19 14:35 HH (Rec: 05/07/19 15:52 [id number]) OP Mobility Evaluation Bed Mobility Rolling demonstrates for bed mobility log roll PT-OP-H Neuro Start: 05/07/19 14:30 Freq: Status: Active Protocol: Document 05/07/19 14:35 HH (Rec: 05/07/19 15:52 [id number]) Sensation Evaluation Gross Sensation Gross Sensation WNL Deep Tendon Reflex & Clonus Assessment Deep Tendon Reflex Bilateral Achilles Deep Tendon Reflex 1+ Diminished Bilateral Patellar Deep Tendon Reflex 1+ Diminished PT-OP-K Range of Motion Start: 05/07/19 14:30 Freq: Status: Active Protocol: Document 05/07/19 14:35 HH (Rec: 05/07/19 15:52 [id number]) Hip Goniometric Range of Motion Hip Right Testing Position Sitting Internal Rotation 35 External Rotation 25 Left Testing Position Sitting Internal Rotation 30 External Rotation 25 Knee Goniometric Range of Motion Knee Right Knee ROM WFL Yes Patient Position Supine Flexion Active (degrees) 95 Extension Active (degrees) 10 Left Knee ROM WFL Yes Patient Position Supine Flexion Active (degrees) 115 Hyper-Extension Active 5 Ankle and Foot Goniometric Range of Motion Ankle and Foot B Testing Position Sitting Dorsiflexion with Knee Flexed 10 Ankle and Foot ROM Limitations Comments Dorsiflexion with knee extended = -5 dg B PT-OP-L Special Tests Start: 05/07/19 14:30 Freq: Status: Active Protocol: Document 05/07/19 14:35 HH (Rec: 05/07/19 15:52 [id number]) Special Tests Knee Special Tests Chele's Test Results -ve Anterior Draw Test Results -ve Varus- 25 Degrees Test Results -ve Valgus- 25 Degrees Test Results -ve Ruslan's Sign Test Results -ve Other Special Tests Special Tests SFMA: MS flexion DN to ankle, limited lumbar flexion MS extension DP with hinging L5, sx reproduction MS rotation DN 50% B, reported stretch sensation Modified prone instability test (sidelying) -ve PT-OP-M Strength Start: 05/07/19 14:30 Freq: Status: Active Protocol: Document 05/07/19 14:35 HH (Rec: 05/07/19 15:52 [id number]) Hip Strength Hip Manual Muscle Testing Right Flexion (L2) 3+ Fair+ Reason Not Measured Muscle Tone Comments unable to achieve abduction MMT position Left Flexion (L2) 3+ Fair+ Knee Strength Knee Manual Muscle Testing Right Flexion (S2) 4 Good Extension (L3) 4 Good Left Flexion (S2) 4 Good Extension (L3) 4 Good Comments B anterior knee pain at 30 degree resisted knee ext Ankle/Foot Strength Ankle and Foot Manual Muscle Testing Bilateral Dorsiflexion (L4) 5 Normal PT-OP-Q Treatments Start: 05/07/19 14:30 Freq: Status: Active Protocol: Document 05/30/19 13:10 HH (Rec: 05/30/19 14:09 [id number]) Cardio Equipment Recumbent Stepper (Sci-Fit) Duration (Minutes) 5 Resistance 5 Other RPM 50 Therapeutic Exercises Supine Exercises T/S extensnio Side bilateral Equipment Used half foam roller Reps/Minutes 10 x2 supine PPT Side bilateral Reps/Minutes 20 x2 Comments cues on isolated PPT knee hold Side bilateral Reps/Minutes 6secs hold x8 sets Comments cues on flat back marches Side bilateral Reps/Minutes 10 x 2 on each side Comments with DIANA bridging Supine Exercise Name band at B knees Resistance yellow band Reps/Minutes 2 mins Comments small range bridging, cues on PPT Prone Exercises cat camel Prone Exercise Name isolated pelvic tilt without T /S movements Side bilateral Reps/Minutes 20 x 2 Sitting Exercises seated pelvic tilt Side bilateral Reps/Minutes 20 Manual Therapy Treatment Soft Tissue Mobilization B paraspinals Mobilization Type Rolling Intensity/Depth Moderate Body Position Sitting quadriceps Mobilization Type Rolling Intensity/Depth Moderate Body Position Supine Comments zen test position PT-OP-T Assessment and Plan Start: 05/07/19 14:30 Freq: Status: Active Protocol: Document 05/30/19 13:10 HH (Rec: 05/30/19 14:09 HH [id number]) Physical Therapy Assessment Goals SLS Impairment Pt unable to balance >10 sec during SLS Short Term Goal (STG) Pt will be able to balance >15 sec B during SLS to reflect improved LE strength STG Duration 4 weeks Shield Operator Goal (LTG) Pt will be able to balance >20 sec B during SLS to reflect improved LE strength LTG Duration 8 weeks 6MWT Impairment Pt ambulated 535 ft during 6 MWT Short Term Goal (STG) Pt will ambulate >800 ft during 6 MWT to improve tolerance for ambulation STG Duration 4 weeks Shield Operator Goal (LTG) Pt will ambulate >1000 feet during 6 MWT to improve tolerance for ambulation LTG Duration 8 weeks LEFS Impairment Pt scores 28/80 on LEFS Short Term Goal (STG) Pt will score 37/80 on LEFS to improve ability to complete functional activities STG Duration 4 weeks Shield Operator Goal (LTG) Pt will score 46/80 on LEFS to improve ability to complete functional activities LTG Duration 8 weeks Assessment Summary Assessment Pt has improved isolated hip and lumbar movements. Added cat camel, t/s extension, bridging, supine knee hold for HEP. will cont progress stabilization ex Physical Therapy Plan Next Visit Focus/Plan Next Note Type Treatment Note Next Visit Plan assess tolerance for post tx MT for B quads, IT band, patellar tendon; lumbar paraspinals Lumbar AROM, core strengthening/stabilization LE strengthening (gravity eliminated) Single leg balance retraining
--- NOTE | 2019-06-13 11:15 | PT.OTN ---
Current Diagnoses Pain in right knee (06/13/19) Pain in left knee (06/13/19) Low back pain (06/13/19) Physical Therapy Treatment Note PT-OP-A Visit Information Start: 05/07/19 14:30 Freq: Status: Active Protocol: Document 06/13/19 11:15 DLM (Rec: 06/13/19 17:25 DLM [email or web address]) Out-Patient Physical Therapy Visit Information Visit Information Visit Type Treatment Note Visit Start Time 11:15 Visit Stop Time 11:59 Total Visit Minutes 44 Visit Number 7/9 Number of MEDICAL NUMERICAL CONTROL OPERATOR Visits 0 Evaluation Information Evaluation Date 05/07/19 PT-OP-B Current Condition Start: 05/07/19 14:30 Freq: Status: Active Protocol: Document 05/07/19 14:35 HH (Rec: 05/07/19 15:52 HH [id number]) Current Condition History of Current Condition Onset Date ~1 mo ago Current Complaints B knee pain, LBP, limited activity tolerance History of Current Condition Pt presents to clinic with primary c/o LBP and B knee pain started a month ago. Pt had x-ray screen in [place] in February which shows L5-S1 mild arthropathy. Pt stated her B knee pain is a severe achy pain in her ant knees, and is aggravated by bending down, walking, and bending her knee. Her back pain is an achy pain in a line at her low back and is aggravated by prolonged standing and getting up from lying down. Resting is the only easer for her knee and back pain. Pt had a pulmonary embolism in September 2018 and she is still under warfarin treatment which is the reason why she gets bruised easily. Pt was also diagnosed with lupus in September 2018 and is receiving treatment but states she does have flair ups occasionally. She c/o decreased activity tolerance and endurance since September 2018. Prior Treatments and Tests XR Feb 2019 showed L5-S1 mild arthropathy Treatment Goals Patient/Caregiver Goals 1. To be pain free during walking, bending over activities 2. Be able to do more activity Personal Factors Other Personal Factors That May Effect Depression Therapy/Recovery Lupus previous PE in September (SOB, Tachycardia at baseline) PT-OP-C Subjective Start: 05/07/19 14:30 Freq: Status: Active Protocol: Document 06/13/19 11:15 DLM (Rec: 06/13/19 17:25 DLM [email or web address]) OP-PT Subjective Patient Comments Patient Comments Her left foot has been swollen but no recent injury. It gets sore if she stands on it too long. Patient Reported Progress Improving PT-OP-E Functional Tests Start: 05/07/19 14:30 Freq: Status: Active Protocol: Document 05/07/19 14:35 HH (Rec: 05/07/19 15:52 [id number]) Functional Tests 6 Minute Walk Test Distance none Device Used 535ft Comments SpO2 >98%, HR= 100-110s. Pt reports SOB/fatigue, took one 40 seated break PT-OP-G Mobility & Gait Start: 05/07/19 14:30 Freq: Status: Active Protocol: Document 05/07/19 14:35 HH (Rec: 05/07/19 15:52 [id number]) OP Mobility Evaluation Bed Mobility Rolling demonstrates for bed mobility log roll PT-OP-H Neuro Start: 05/07/19 14:30 Freq: Status: Active Protocol: Document 05/07/19 14:35 HH (Rec: 05/07/19 15:52 [id number]) Sensation Evaluation Gross Sensation Gross Sensation WNL Deep Tendon Reflex & Clonus Assessment Deep Tendon Reflex Bilateral Achilles Deep Tendon Reflex 1+ Diminished Bilateral Patellar Deep Tendon Reflex 1+ Diminished PT-OP-K Range of Motion Start: 05/07/19 14:30 Freq: Status: Active Protocol: Document 05/07/19 14:35 HH (Rec: 05/07/19 15:52 [id number]) Hip Goniometric Range of Motion Hip Right Testing Position Sitting Internal Rotation 35 External Rotation 25 Left Testing Position Sitting Internal Rotation 30 External Rotation 25 Knee Goniometric Range of Motion Knee Right Knee ROM WFL Yes Patient Position Supine Flexion Active (degrees) 95 Extension Active (degrees) 10 Left Knee ROM WFL Yes Patient Position Supine Flexion Active (degrees) 115 Hyper-Extension Active 5 Ankle and Foot Goniometric Range of Motion Ankle and Foot B Testing Position Sitting Dorsiflexion with Knee Flexed 10 Ankle and Foot ROM Limitations Comments Dorsiflexion with knee extended = -5 dg B PT-OP-L Special Tests Start: 05/07/19 14:30 Freq: Status: Active Protocol: Document 05/07/19 14:35 HH (Rec: 05/07/19 15:52 [id number]) Special Tests Knee Special Tests Chele's Test Results -ve Anterior Draw Test Results -ve Varus- 25 Degrees Test Results -ve Valgus- 25 Degrees Test Results -ve Ruslan's Sign Test Results -ve Other Special Tests Special Tests SFMA: MS flexion DN to ankle, limited lumbar flexion MS extension DP with hinging L5, sx reproduction MS rotation DN 50% B, reported stretch sensation Modified prone instability test (sidelying) -ve PT-OP-M Strength Start: 05/07/19 14:30 Freq: Status: Active Protocol: Document 05/07/19 14:35 HH (Rec: 05/07/19 15:52 [id number]) Hip Strength Hip Manual Muscle Testing Right Flexion (L2) 3+ Fair+ Reason Not Measured Muscle Tone Comments unable to achieve abduction MMT position Left Flexion (L2) 3+ Fair+ Knee Strength Knee Manual Muscle Testing Right Flexion (S2) 4 Good Extension (L3) 4 Good Left Flexion (S2) 4 Good Extension (L3) 4 Good Comments B anterior knee pain at 30 degree resisted knee ext Ankle/Foot Strength Ankle and Foot Manual Muscle Testing Bilateral Dorsiflexion (L4) 5 Normal PT-OP-Q Treatments Start: 05/07/19 14:30 Freq: Status: Active Protocol: Document 06/13/19 11:15 DLM (Rec: 06/13/19 17:25 DLM [email or web address]) Cardio Equipment Recumbent Elliptical (Biodex) Duration (Minutes) 5 Resistance 5 Gym Equipment Shuttle Recovery Unilateral Squats Details cuing to prevent valgus on left Resistance 75# Shuttle Recovery Platform Stable Reps/Time 2 x 10 reps each side Bilateral Squats Resistance 75# Shuttle Recovery Platform Stable Reps/Time 2 x 10 reps Therapeutic Exercises Supine Exercises T/S extension Side bilateral Equipment Used half foam roller Reps/Minutes 3 min supine PPT Reps/Minutes 5 sec x 10 reps Comments cues on isolated PPT knee hold Supine Exercise Name double knee to chest stretch Side bilateral Reps/Minutes 6 secs hold x 8 Reps Comments cues on flat back marches Side bilateral Reps/Minutes 10 x 2 on each side Comments with DIANA SLR Supine Exercise Name cues on DIANA Side bilateral Reps/Minutes 2 x 10 reps Comments slow eccentric control bridging Supine Exercise Name band at B knees Resistance L1 exercise band Reps/Minutes 2 x 10 reps Prone Exercises cat camel Prone Exercise Name Side bilateral Reps/Minutes 20 reps PT-OP-T Assessment and Plan Start: 05/07/19 14:30 Freq: Status: Active Protocol: Document 06/13/19 11:15 DLM (Rec: 06/13/19 17:25 DLM [email or web address]) Physical Therapy Assessment Goals SLS Impairment Pt unable to balance >10 sec during SLS Short Term Goal (STG) Pt will be able to balance >15 sec B during SLS to reflect improved LE strength STG Duration 4 weeks Parking Analyst Goal (LTG) Pt will be able to balance >20 sec B during SLS to reflect improved LE strength LTG Duration 8 weeks 6MWT Impairment Pt ambulated 535 ft during 6 MWT Short Term Goal (STG) Pt will ambulate >800 ft during 6 MWT to improve tolerance for ambulation STG Duration 4 weeks Parking Analyst Goal (LTG) Pt will ambulate >1000 feet during 6 MWT to improve tolerance for ambulation LTG Duration 8 weeks LEFS Impairment Pt scores 28/80 on LEFS Short Term Goal (STG) Pt will score 37/80 on LEFS to improve ability to complete functional activities STG Duration 4 weeks Parking Analyst Goal (LTG) Pt will score 46/80 on LEFS to improve ability to complete functional activities LTG Duration 8 weeks Progress Towards Goals Progress Towards Goals Progressing Toward Goals Assessment Summary Assessment She tolerated her exercises well with education on technique. No increase in pain reported after ex. Discussed foot issues with pt. She reports no redness nor injury in her foot. Physical Therapy Plan Frequency and Duration Frequency of Treatment 2x/Week Duration of Treatment 8 weeks Plan of Care Start Date 05/07/19 Plan of Care End Date 07/02/19 Therapeutic Interventions Therapeutic Interventions Aquatic Therapy,Balance Training,Gait Training,Home Exercise Program,Joint Mobilizations,Manual Therapy, Neuromuscular Re-education, Patient/Caregiver Education, Self-Care/Home Management,Soft Tissue Mobilization,Taping, Therapeutic Activities, Therapeutic Exercises Modalities Cold Pack/Ice Massage,Electric Stimulation,Hot Packs, Infrared Therapy,Ultrasound Next Visit Focus/Plan Next Note Type Treatment Note Next Visit Plan continue manual therapy as needed, monitor foot symptoms
--- NOTE | 2019-06-20 14:29 | PT.OTN ---
Current Diagnoses Pain in right knee (06/20/19) Pain in left knee (06/20/19) Low back pain (06/20/19) Physical Therapy Treatment Note PT-OP-A Visit Information Start: 05/07/19 14:30 Freq: Status: Active Protocol: Document 06/20/19 13:49 HH (Rec: 06/20/19 14:28 [id number]) Out-Patient Physical Therapy Visit Information Visit Information Visit Type Treatment Note Visit Start Time 13:49 Visit Stop Time 14:30 Total Visit Minutes 41 Visit Number 8/9 Number of BINDING BENCH WORKER Visits 0 PT-OP-B Current Condition Start: 05/07/19 14:30 Freq: Status: Active Protocol: Document 05/07/19 14:35 HH (Rec: 05/07/19 15:52 HH [id number]) Current Condition History of Current Condition Onset Date ~1 mo ago Current Complaints B knee pain, LBP, limited activity tolerance History of Current Condition Pt presents to clinic with primary c/o LBP and B knee pain started a month ago. Pt had x-ray screen in [place] in February which shows L5-S1 mild arthropathy. Pt stated her B knee pain is a severe achy pain in her ant knees, and is aggravated by bending down, walking, and bending her knee. Her back pain is an achy pain in a line at her low back and is aggravated by prolonged standing and getting up from lying down. Resting is the only easer for her knee and back pain. Pt had a pulmonary embolism in September 2018 and she is still under warfarin treatment which is the reason why she gets bruised easily. Pt was also diagnosed with lupus in September 2018 and is receiving treatment but states she does have flair ups occasionally. She c/o decreased activity tolerance and endurance since September 2018. Prior Treatments and Tests XR Feb 2019 showed L5-S1 mild arthropathy Treatment Goals Patient/Caregiver Goals 1. To be pain free during walking, bending over activities 2. Be able to do more activity Personal Factors Other Personal Factors That May Effect Depression Therapy/Recovery Lupus previous PE in September (SOB, Tachycardia at baseline) PT-OP-C Subjective Start: 05/07/19 14:30 Freq: Status: Active Protocol: Document 06/20/19 13:49 HH (Rec: 06/20/19 14:28 [id number]) OP-PT Subjective Patient Comments Patient Comments Mckenzie been walking a lot more lately and my back, knees and ankles did not hurt at all and i feel good. I lost around 10 lbs as well. Patient Reported Progress Improving PT-OP-E Functional Tests Start: 05/07/19 14:30 Freq: Status: Active Protocol: Document 05/07/19 14:35 HH (Rec: 05/07/19 15:52 [id number]) Functional Tests 6 Minute Walk Test Distance none Device Used 535ft Comments SpO2 >98%, HR= 100-110s. Pt reports SOB/fatigue, took one 40 seated break PT-OP-G Mobility & Gait Start: 05/07/19 14:30 Freq: Status: Active Protocol: Document 05/07/19 14:35 HH (Rec: 05/07/19 15:52 [id number]) OP Mobility Evaluation Bed Mobility Rolling demonstrates for bed mobility log roll PT-OP-H Neuro Start: 05/07/19 14:30 Freq: Status: Active Protocol: Document 05/07/19 14:35 HH (Rec: 05/07/19 15:52 [id number]) Sensation Evaluation Gross Sensation Gross Sensation WNL Deep Tendon Reflex & Clonus Assessment Deep Tendon Reflex Bilateral Achilles Deep Tendon Reflex 1+ Diminished Bilateral Patellar Deep Tendon Reflex 1+ Diminished PT-OP-K Range of Motion Start: 05/07/19 14:30 Freq: Status: Active Protocol: Document 05/07/19 14:35 HH (Rec: 05/07/19 15:52 [id number]) Hip Goniometric Range of Motion Hip Right Testing Position Sitting Internal Rotation 35 External Rotation 25 Left Testing Position Sitting Internal Rotation 30 External Rotation 25 Knee Goniometric Range of Motion Knee Right Knee ROM WFL Yes Patient Position Supine Flexion Active (degrees) 95 Extension Active (degrees) 10 Left Knee ROM WFL Yes Patient Position Supine Flexion Active (degrees) 115 Hyper-Extension Active 5 Ankle and Foot Goniometric Range of Motion Ankle and Foot B Testing Position Sitting Dorsiflexion with Knee Flexed 10 Ankle and Foot ROM Limitations Comments Dorsiflexion with knee extended = -5 dg B PT-OP-L Special Tests Start: 05/07/19 14:30 Freq: Status: Active Protocol: Document 05/07/19 14:35 HH (Rec: 05/07/19 15:52 [id number]) Special Tests Knee Special Tests Chele's Test Results -ve Anterior Draw Test Results -ve Varus- 25 Degrees Test Results -ve Valgus- 25 Degrees Test Results -ve Ruslan's Sign Test Results -ve Other Special Tests Special Tests SFMA: MS flexion DN to ankle, limited lumbar flexion MS extension DP with hinging L5, sx reproduction MS rotation DN 50% B, reported stretch sensation Modified prone instability test (sidelying) -ve PT-OP-M Strength Start: 05/07/19 14:30 Freq: Status: Active Protocol: Document 05/07/19 14:35 HH (Rec: 05/07/19 15:52 [id number]) Hip Strength Hip Manual Muscle Testing Right Flexion (L2) 3+ Fair+ Reason Not Measured Muscle Tone Comments unable to achieve abduction MMT position Left Flexion (L2) 3+ Fair+ Knee Strength Knee Manual Muscle Testing Right Flexion (S2) 4 Good Extension (L3) 4 Good Left Flexion (S2) 4 Good Extension (L3) 4 Good Comments B anterior knee pain at 30 degree resisted knee ext Ankle/Foot Strength Ankle and Foot Manual Muscle Testing Bilateral Dorsiflexion (L4) 5 Normal PT-OP-Q Treatments Start: 05/07/19 14:30 Freq: Status: Active Protocol: Document 06/20/19 13:49 HH (Rec: 06/20/19 14:28 [id number]) Cardio Equipment Treadmill Duration (Minutes) 8 Speed 1.5 Therapeutic Exercises Standing Exercises SLS Reps/Minutes 3 sets Comments 30 sec each Gait Training Gait Activity 6MWT Comments 1211 without break HR 101- 134 Self-Care/Home Management Treatment Education Other Education education on daily walking progression. use pulse ox to track her HR and recovery rate . PT-OP-T Assessment and Plan Start: 05/07/19 14:30 Freq: Status: Active Protocol: Document 06/20/19 13:49 (Rec: 06/20/19 14:28 [id number]) Physical Therapy Assessment Goals SLS Impairment Pt unable to balance >10 sec during SLS Short Term Goal (STG) Pt will be able to balance >15 sec B during SLS to reflect improved LE strength STG Duration 4 weeks Shelter Goal (LTG) 06/20 goal met : both SLS reaches 30 s LTG Duration 8 weeks 6MWT Graphic Design Assistant Goal (LTG) goal met 06/20 amb 1211 without break for 6MWT LEFS Shelter Goal (LTG) did not assess Assessment Summary Assessment Pt cont to improve without any discomfort. She reached all her rehab goal and consistently losing weight. She also does not c/o back pain for supine to sit now., Pt is satisfied with her progress and agreed to be d/c from PT. Dis pt to participate weight loss program.
== END 2019-07-01 08:26 ==
LOC: PHYS 13:45
PROVIDERS: PCP Family Medicine; Visit Provider Family Medicine
DX: M54.5 Low back pain (principal); M25.561 Pain in right knee; M25.562 Pain in left knee
CPT/HCPCS: 97110; 97116; 97140; 97162; 97530; 97535

== ENCOUNTER → 2019-07-09 10:14 | Outpatient (CLI) | payer OTHER, MEDICAID, SELFPAY ==
--- NOTE | 2019-07-09 10:15 | DI.US.S_ITS ---
ULTRASOUND OF LEFT BREAST AND AXILLA: 07/09/2019 CLINICAL: 6 month follow-up of palp lump. Comparison is made to exams dated: 04/22/2019 ultrasound, 11/01/2018 ultrasound, and 09/04/2018 [facility]. Color flow and real-time ultrasound of the left breast axilla were performed. Larson scale images of the real-time examination were reviewed. There is a persistent 1.8 cm x 1.9 cm x 1.7 cm oval hypoechoic mass with a circumscribed margin in the left breast at 11 o'clock middle depth 4 cm from the nipple. This oval mass displays mild posterior acoustic enhancement. This abnormality is not significantly changed in size since most recent ultrasound of 04/22/2019 but has enlarged greater than 20% since initial imaging dating 09/04/2018. Color flow imaging demonstrates that there is vascularity present. A smaller circumscribed hypoechoic mass is again noted immediately adjacent to this mass measuring approximately 4mm in size. It has remained stable since initial imaging. No significant abnormalities were seen sonographically in the left axilla. IMPRESSION: PROBABLY BENIGN The 1.8 cm x 1.9 cm x 1.7 cm oval mass in the left breast likely represents a fibroadenoma and is probably benign. However, it has slowly enlarged in size since August 2018 and patient now reports associated breast pain. She desires to have this surgically excised. A surgical consult is recommended with possible core biopsy if requested by the consulting surgeon. Recommendations were discussed with the patient. This exam was interpreted at Station ID: [id number]. Electronically Signed By: Walt Martino M.D. aty/:07/09/2019 13:00:07 Ultrasound BI-RADS: 3 Probably benign
== END ==
PROVIDERS: PCP Family Medicine; Referring Provider Family Medicine; Visit Provider Family Medicine
DX: R92.8 Other abnormal and inconclusive findings on diagnostic imaging of breast (principal); N63.22 Unspecified lump in the left breast, upper inner quadrant; N64.4 Mastodynia
CPT/HCPCS: 76642

== ENCOUNTER 2019-07-21 13:42 | Emergency (ER) | payer OTHER, MEDICAID, SELFPAY ==
[2019-07-21 13:58] VITALS: BP 132/59; PULSE 100; RESP 18; TEMP 36.8; O2SAT 100
[2019-07-21 14:58] LABS: Add Manual Diff / Slide Review NO; Basophils Absolute Auto 0 /uL (0-100); Basophils Percent Auto 0.7 % (0-2); Eosinophils Absolute Auto 200 /uL (0-450); Eosinophils Percent Auto 2.4 % (2-4); Hematocrit 33.8 % (36-46); Hemoglobin 10.7 g/dL (12.0-16.0); Lymphocytes Absolute Auto 1100 /uL (1100-4500); Lymphocytes Percent Auto 17.7 % (25-40); Mean Corpuscular HGB Conc 31.7 % (30-36); Mean Corpuscular Hemoglobin 24.1 PG (26-34); Mean Corpuscular Volume 76.1 fL (80-100); Monocytes Absolute Auto 500 /uL (0-900); Monocytes Percent Auto 8.2 % (3-14); Neutrophils Absolute Auto 4600 /uL (1500-7000); Platelet Count 491 X10^3/uL (150-400); Red Blood Cell Count 4.44 X10^6/uL (4.0-5.2); Red Cell Distribution Width 16.3 % (11.6-14.8); White Blood Cell Count 6.5 X10^3/uL (4.5-11.0)
[2019-07-21 15:04] LABS: INR 2.6 (0.9-1.3); Prothrombin Time 29.5 SECONDS (10.1-12.7)
[2019-07-21 15:07] LABS: PTT Partial Thromboplastin Tim 48 SECONDS (26.4-36.2)
--- NOTE | 2019-07-21 15:21 | ED_ITS ---
HPI - GI Bleed General Chief complaint: GI Bleed Stated complaint: blood in stools x7 days Time Seen by Provider: 07/21/19 15:13 Source: patient Mode of arrival: Ambulatory Limitations: no limitations History of Present Illness HPI Narrative: 23-year-old female here for evaluation of bright red blood per rectum. States that has been going on for the past week. Occurs only when she is having a bowel movement. States she is constipated. She is on Coumadin secondary to a prior history of pulmonary embolism. She is managed by her primary doctor. No abdominal pain. No vomiting. No blood in her urine. Has h ad hemorrhoids in the past however is not having painful bowel movements currently. Related Data Home Medications Medication Instructions Recorded Confirmed hydroxychloroquine 200 mg tablet 400 mg PO DAILY tab 10/02/18 07/10/19 warfarin 5 mg tablet 5 mg PO DAILY 10/02/18 07/10/19 loratadine 10 mg tablet 10 mg PO DAILY 12/11/18 07/10/19 Previous Rx's Medication Instructions Recorded Disabled parking permit #1 ea 10/29/18 ketotifen fumarate 0.025 % (0.035 1 drop EYE-BOTH BID PRN #10 ml 01/15/19 %) eye drops ondansetron 8 mg disintegrating 8 mg PO TID PRN #90 tab 03/06/19 tablet quetiapine 200 mg tablet 200 mg PO DAILY #30 tab 05/06/19 mycophenolate mofetil 200 mg/mL See Rx Instructions PO BID #450 ml 06/24/19 oral suspension lamotrigine 100 mg tablet 200 mg PO DAILY #60 tab 07/10/19 levothyroxine 75 mcg capsule 75 mcg PO DAILY #90 cap 07/18/19 omeprazole 20 mg tablet,delayed 20 mg PO BID #180 tab 07/18/19 release Allergies Allergy/AdvReac Type Severity Reaction Status Date / Time nabumetone AdvReac Mild itchy, Verified 07/21/19 14:02 stomach upset Review of Systems Constitutional Constitutional: Denies fever(s) ENT Ears, Nose, Mouth, and Throat: Denies vertigo and Denies dizziness Cardiovascular Cardiovascular: Denies chest pain and Denies dyspnea Respiratory Respiratory: Denies dyspnea Gastrointestinal Gastrointestinal: Denies abdominal pain Comments: Bright red blood per rectum Genitourinary Genitourinary: Denies dysuria Integumentary/Breasts Skin/Breast: Denies rash Neurologic Neurologic: Denies vertigo and Denies dizziness Hematologic/Lymphatic Comments: On Coumadin Patient History Medical History Antiphospholipid syndrome (Chronic) Chronic headache disorder (Chronic) GERD (gastroesophageal reflux disease) (Acute) Hypothyroidism (Chronic) Pulmonary embolism (Acute) Systemic lupus (Chronic) Social History marital status: unmarried,single household members: family pets and animals: Yes seatbelt use: always working smoke detector in home: Yes carbon monox detector in home: Yes Smoking Status: Never smoker alcohol intake: current substance use type: does not use during the past year weight has: decreased > 10 lbs well-balanced diet: daily or most days daily servings fruits/ve-1 caffeine: Yes eating out: rarely or never Smoking Status: Never smoker alcohol intake frequency: 0-2 drinks per day Substance Use Type: does not use Exam Initial Vital Signs Initial Vital Signs: Vital Signs Temperature 98.2 F 07/21/19 13:58 Pulse Rate 100 H 07/21/19 13:58 Respiratory Rate 18 07/21/19 13:58 Blood Pressure 132/59 L 07/21/19 13:58 Pulse Oximetry 100 07/21/19 13:58 Const General: cooperative, comfortable and well developed Limitations: mental status not altered HENMT Head: normal to inspection and normocephalic Resp Effort & Inspection: normal respiratory effort Auscultation: clear to auscultation bilaterally Cardio Rate: regular rate Rhythm: regular rhythm GI Palpation: soft Rectal Exam: visual inspection normal and No hemorrhoids Skin Lesions: no lesions Rashes: no rashes Neuro General: alert and awake Cognition: normal cognition Speech: speech normal Extrem General: normal to inspection and capillary refill normal Psych Appearance: grossly normal and well kempt Course Orders Ordered: ED Orders 07/21/19 14:40 CBC Auto Diff [Complete Blood Count AUTO DIFF] Stat PT [Prothrombin Time INR] Stat Partial Thromboplastin Time Stat Vital Signs Vital signs: Vital Signs - 8 hr 07/21/19 13:58 Temperature 98.2 F Pulse Rate 100 H Respiratory Rate 18 Blood Pressure 132/59 L Pulse Oximetry 100 MDM - GI Bleed Lab Data Attestation: I reviewed the patient's lab results. Result diagrams: 07/21/19 14:40 Labs: Lab Results 07/21/19 07/21/19 Range/Units 14:40 14:40 WBC 6.5 (4.5-11.0) X10^3/uL RBC 4.44 (4.0-5.2) X10^6/uL Hgb 10.7 L (12.0-16.0) g/dL Hct 33.8 L (36-46) % MCV 76.1 L (80-100) fL MCH 24.1 L (26-34) PG MCHC 31.7 (30-36) % RDW 16.3 H (11.6-14.8) % Plt Count 491 H (150-400) X10^3/uL Neut % (Auto) 71.0 (50-75) % Lymph % (Auto) 17.7 L (25-40) % [place] % (Auto) 8.2 (3-14) % Eos % (Auto) 2.4 (2-4) % Baso % (Auto) 0.7 (0-2) % Neut # (Auto) 4600 (2715-4364) /uL Lymph # (Auto) 1100 (0898-9878) /uL [place] # (Auto) 500 (0-900) /uL Eos # (Auto) 200 (0-450) /uL Baso # (Auto) 0 (0-100) /uL PT 29.5 H (10.1-12.7) SECONDS INR 2.6 H (0.9-1.3) APTT 48 H D (26.4-36.2) SECONDS [facility] Narrative Medical decision making narrative: Labs today are unremarkable, INR is 2.6. No hemorrhoids seen or felt in the exam. I do suspect that her bleeding is related to the Coumadin. I also discussed her constipation issues. She is going to start on an bowel regiment. She is going to follow up with her primary doctor. She was given return precautions. She expressed understanding and agreement. Discharge Plan Departure Patient Disposition: Home Clinical Impression: BRBPR (bright red blood per rectum) Instructions: DI for Rectal Bleeding Activity Restrictions/Additional Instructions: Continue all of your medications as directed. Contact your primary provider for follow-up. Return to the emergency department for any new or worsening symptoms Prescriptions: No Action quetiapine 200 mg tablet 200 mg PO DAILY Qty: 30 RF: 0 loratadine 10 mg tablet 10 mg PO DAILY RF: 0 ondansetron 8 mg tablet,disintegrating 8 mg PO TID PRN (Reason: nausea and vomiting) Qty: 90 RF: 3 ketotifen fumarate 0.025 % (0.035 %) drops 1 drop EYE-BOTH BID PRN (Reason: allergy symptoms) Qty: 10 RF: 2 hydroxychloroquine 200 mg tablet 400 mg PO DAILY RF: 0 warfarin 5 mg tablet 5 mg PO DAILY RF: 0 (DME) Disabled parking permit Qty: 1 RF: 0 mycophenolate mofetil 200 mg/mL suspension for reconstitution See Rx Instructions PO BID Qty: 450 RF: 0 lamotrigine 100 mg tablet 200 mg PO DAILY Qty: 60 RF: 11 omeprazole 20 mg tablet,delayed release (DR/EC) 20 mg PO BID Qty: 180 RF: 3 levothyroxine 75 mcg capsule 75 mcg PO DAILY Qty: 90 RF: 3 Referrals: Frida Singh MD [Primary Care Provider] -
[2019-07-21 15:28] VITALS: BP 137/64; PULSE 98; O2SAT 99
== END 2019-07-21 15:35 | disposition home or self-care (01) ==
PROVIDERS: Emergency Provider Emergency Medicine; PCP Family Medicine
DX: K62.5 Hemorrhage of anus and rectum (principal); Z79.01 Long term (current) use of anticoagulants
CPT/HCPCS: 36415; 85025; 85610; 85730; 99283

== ENCOUNTER 2019-08-08 06:47 | Day surgery (SDC) | payer OTHER, MEDICAID, SELFPAY ==
[2019-08-08] VITALS (7 sets, daily range): BP systolic 100–114; BP diastolic 47–72; PULSE 93–121; RESP 17–36; TEMP 36.5–37; O2SAT 95–99; BMI 44.3
--- NOTE | 2019-08-08 | PATH_ITS ---
[facility] Accession Number: [id number] . 01 Material submitted: . esophagus, E-G Junction - GE JUNCTION . 02 Diagnosis: Gastroesophageal Junction, Biopsy: Squamocolumnar junctional mucosa with no diagnostic abnormality. Negative for intestinal metaplasia. Negative for dysplasia and malignancy. . [facility] 08/12/2019 1449 Local . 02 Electronically signed: . Martina Duarte MD, Pathologist NPI- [id number] . 01 Gross description: . GE JUNCTION: Received in formalin are 4 fragment(s) of ca, soft tissue measuring 0.1 x 0.1 x 0.1 cm to 0.3 x 0.2 x 0.2 cm submitted entirely in 1 cassette(s) /[facility] 08/08/2019 1853 Local . 02 Microscopic: . An Alcian blue stain was performed to evaluate for intestinal metaplasia and is negative. The control stain showed appropriate reactivity. . A PAS stain was performed to evaluate for fungal organisms and is negative. The control stain showed appropriate reactivity. . 02 Pathologist provided ICD-10: R13.10 . 02 CPT . 440505, 195861, 126063 Performed at: 01 [facility] [address], [place], [place] [id number] MD Edd Dickinson MD Phone: [phone] Performed at: 02 [facility] [address] [place], [place] [id number] MD Martina Duarte MD Phone: [phone]
[2019-08-08] MEDS: SODIUM CHLORIDE 0.9% 1,000 ML 150 ML IV (07:45)
--- NOTE | 2019-08-08 07:48 | PM.PREOP ---
Pre-operative Note Interval Note History & Physical reviewed/Exam performed by Physician: Yes Changes to H&P: No H&P completed within 30 days and has changed as indicated here:: seenotes from 07/10 and 07/23 ASA Class (for procedural sedation): III
[2019-08-08] MEDS: fentaNYL 250 MCG/5 ML INJ IV (08:29)
[2019-08-08] MEDS: MIDAZOLAM 5 MG/5 ML VIAL IV (08:29)
[2019-08-08] MEDS: LIDOCAINE 4% SOLN 50 ML 20 ML TOP (08:30)
--- NOTE | 2019-08-08 08:36 | SUR.OPER ---
ANESTHESIA REQUESTED BY SURGEON. PATIENT WAS ALREADY SEDATED AT THAT TIME SO UNABLE TO OBTAIN CONSENT FOR ANESTHESIA. PLEASE SEE DR. MAYER OPERATIVE REPORT.
--- NOTE | 2019-08-08 08:37 | PM.OP.ENDO ---
Operative Date/Time/Diagnoses Date of procedure: 08/08/19 Time of procedure: 08:37 Pre-op diagnosis: Dysphagia. History of rectal bleeding. Post-op diagnosis: same (Mild inflammation at the GE junction. Biopsies taken. Mild narrowing of the GE junction.) Procedure & Clinicians Study performed: EGD with cold biopsy Same procedure as scheduled: Yes Indications: Diagnostic. Possibly therapeutic. Surgeon: Butch Briseno Procedure Notes SCOAP/Timeout: Performed Procedure in detail: The patient was placed in left lateral decubitus after having topical anesthetic applied or oropharynx. She was sedated using fentanyl and Versed in a graduated fashion. When she seemed adequately sedated a bite block was inserted in the scope was advanced through it into the pharynx. The patient reached up, grabbed the scope and pulled it out. She was given additional sedation and appeared to be sedated adequately to perform the procedure under sedation. Scope was inserted and as I reach the point of looking at the epiglottis once again the patient began to struggle reached up and pulled out the scope. By this point she had received 7 mg of Versed and 200 micro g of fentanyl. It seemed to me that moderate sedation would not be adequate in this patient since each time she reached that point of sedation she still struggled with the exam and removed the scope. Dr. Chavez, the anesthesiologist was available and I asked him to provide deep sedation to the patient. Because the patient was sedated at the time we proceeded accordingly. Dr. Chavez was not able to obtain an anesthesia consent per se though the patient did sign a consent for sedation. Once under deep sedation we advanced the scope through a bite block into the esophagus. The esophagus was somewhat tortuous but otherwise normal in appearance. There was some mild inflammation of the GE junction located at 36 cm from the incisors. The stomach insufflated well. No lesions were seen the antrum body or the incisura. The pyloric channel was widely patent. I passed through it into a normal appearing duodenal bulb. The duodenum was unremarkable to the 4th part. The scope was brought back into the stomach and retroflexed. The proximal stomach was normal in appearance except for very small hiatal hernia. The scope was straightened and brought up through the area of the GE junction where biopsies were taken. There was some mild narrowing here but not enough to dilate. There was no resistance to going through with the scope. After obtaining biopsies the scope was removed and the patient tolerated the procedure well. She was awakened taken recovery room good condition. Scope withdrawal time: Not applicable Sedation minutes: 20 Findings: hiatal hernia (Small) and other findings (Inflammation at the GE junction) Specimen(s): other (GE junction biopsies) Complications: none Post-procedure Recommendations: Continue medication(s) (Proton pump inhibitor) Plan for aftercare: Follow-up in the office Follow up: weeks Disposition: PACU
--- NOTE | 2019-08-08 08:53 | SUR.PHASEI ---
Stable PACU stay.
--- NOTE | 2019-08-08 10:14 | SUR.PHASEII ---
Marie called. Pt stated she was ready to go, SBA to BR to void, steady when up. Left when ready and left in stable condition.
== END 2019-08-08 09:43 | disposition home or self-care (01) ==
PROVIDERS: PCP Family Medicine; Referring Provider Specialist; Visit Provider Specialist
PROC: 0DJ08ZZ Inspection of Upper Intestinal Tract, Via Natural or Artificial Opening Endoscopic (ICD-10-PCS; CPT 43235; principal; 2019-08-08 07:45)
DX: K21.0 Gastro-esophageal reflux disease with esophagitis (principal); K22.2 Esophageal obstruction; E03.9 Hypothyroidism, unspecified; M32.9 Systemic lupus erythematosus, unspecified; Z86.711 Personal history of pulmonary embolism; D68.61 Antiphospholipid syndrome
CPT/HCPCS: 43239; 99152; J2250; J2704; J3010

== ENCOUNTER → 2019-09-12 12:30 | Outpatient (CLI) | payer OTHER, MEDICAID, SELFPAY ==
[2019-09-12 15:53] LABS: Thyroid Stimulating Hormone 4.15 uIU/mL (0.47-4.68)
[2019-09-12 16:10] LABS: Vitamin B12 708 pg/mL (239-931)
== END ==
PROVIDERS: PCP Family Medicine; Referring Provider Family Medicine; Visit Provider Family Medicine
DX: G62.9 Polyneuropathy, unspecified (principal)
CPT/HCPCS: 36415; 82607; 84443

== ENCOUNTER → 2019-11-22 11:06 | Outpatient (CLI) | payer OTHER, MEDICAID, SELFPAY ==
[2019-11-22 22:28] LABS: COVID19 Sendout Not Detected (Not Detect)
== END ==
PROVIDERS: PCP Family Medicine; Visit Provider Nurse Practitioner
DX: Z01.812 Encounter for preprocedural laboratory examination (principal)
CPT/HCPCS: 87635

== ENCOUNTER → 2019-11-29 10:07 | Outpatient (CLI) | payer OTHER, MEDICAID, SELFPAY ==
--- NOTE | 2019-11-29 10:09 | DI.RAD.S_ITS ---
PROCEDURE: FL BARIUM SWALLOW INDICATIONS: dysphagia with ridge r/o dysmotility COMPARISON: None. FINDINGS: Function: There is overall normal esophageal peristalsis. There were a few quick episodes of mild esophageal spasm on real-time imaging resulting in delayed and retrograde flow of ingested contrast. No elicited gastroesophageal reflux. There is normal transit of a calibrated barium tablet through the esophagus into the stomach. Morphology: Air-contrast images demonstrate normal mucosal morphology. Single contrast views show no esophageal strictures, extrinsic mass effects, or diverticula. Limited images of the stomach demonstrate normal appearance. IMPRESSION: A few short episodes of esophageal spasm resulting in delayed and retrograde flow of ingested contrast seen on real-time imaging. No evidence for gastroesophageal reflux. Otherwise, negative esophagram. Dictated by: Walt Martino M.D. on 11/29/2019 at 16:06 Approved by: Walt Martino M.D. on 11/29/2019 at 16:10
== END ==
PROVIDERS: PCP Family Medicine; Referring Provider Specialist; Visit Provider Specialist
DX: R13.10 Dysphagia, unspecified (principal); M32.9 Systemic lupus erythematosus, unspecified
CPT/HCPCS: 74220

== ENCOUNTER → 2020-02-29 08:58 | Outpatient (CLI) | payer OTHER, MEDICAID, SELFPAY ==
[2020-03-02 06:40] LABS: COVID19 Sendout Not Detected (Not Detect)
== END ==
PROVIDERS: PCP Family Medicine; Visit Provider Physician Assistant
DX: Z01.812 Encounter for preprocedural laboratory examination (principal)
CPT/HCPCS: 87635

== ENCOUNTER 2020-03-02 06:33 | Day surgery (SDC) | payer OTHER, MEDICAID, SELFPAY ==
[2020-02-28 10:03] VITALS: BMI 46.0
[2020-03-02] VITALS (12 sets, daily range): BP systolic 99–133; BP diastolic 52–88; PULSE 97–116; RESP 15–32; TEMP 36.1–36.5; O2SAT 96–100; BMI 46.0
--- NOTE | 2020-03-02 | PATH_ITS ---
[facility] Accession Number: [id number] . 01 Material submitted: . breast - LEFT BREAST MASS . 01 Clinical history: . A: LEFT BREAST MASS; LONG STITCH POSTERIOR, SHORT STITCH MEDIAL . 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 Focal associated microcalcifications. Negative for atypia, carcinoma in situ and malignancy. . COMMENT: The fibroepithelial lesion demonstrates very well circumscribed borders, easily seen pseudocapsule, and overall uniform growth pattern with an appropriate epithelium to stroma relationship, with intracanalicular predominant growth pattern, but well-mixed with a pericanalicular pattern. Although focally the stroma appears mildly to moderately cellular and mitoses can be seen (2-4 mitoses per 10 HPF), the latter is a feature that can be seen in fibroepithelial lesions in young patients and the findings overall do not meet morphologic criteria for a benign phyllodes tumor. MRV 03/09/2020 1432 Local . 01 Electronically signed: . Ava Ross MD, Pathologist NPI- [id number] . 01 Gross description: . Received in formalin, labeled left breast mass, and consists of a 28-gram lumpectomy specimen oriented with a long suture designated posterior and short suture designated medial. Measurement: 3.5 cm anterior to posterior, 4.2 cm medial to lateral, and 4.5 cm superior to inferior. Skin Ellipse: Absent. Wire: Absent. Margins: Posterior black, anterior red, superior blue, inferior green, medial yellow and lateral orange. Sliced: Superior to inferior into 13 slices. Lesion: A 1.9 x 1.9 x 1.9 cm well-circumscribed firm ca-white mass within slices 1-7. A biopsy marker is not identified. The mass is entirely submitted. Distance to Margins: 0.3 cm from the superior margin, greater than 2 cm from the inferior margin, 0.1 cm from the anterior margin, 0.5 cm from the posterior margin, and 0.3 cm from the medial and lateral margins. The remaining cut surfaces are ca-yellow and lobulated with interspersed ca-white fibrous tissue. High Reach Operator sections are submitted. A1: slice 1, sales representative adding machines perpendicular sections of superior margin with possible mass. A2: slice 2, mass in relation to anterior, posterior and medial margins. A3: slice 3, mass in relation to anterior, medial and posterior margins. A4: slice 4, mass in relation to anterior and medial margins. A5: slice 4, mass in relation to anterior and lateral margins. A6: slice 5, mass in relation to anterior and medial margins. A7: slice 6, mass in relation to anterior and lateral margins. A8: slice 7, mass in relation to anterior margin. A9: slice 8, immediately inferior to mass, including anterior and medial margins. A10: slice 9, uninvolved tissue. A11: slice 13, sales representative adding machines perpendicular sections of inferior margin. Formalin fixation time: Approximately 42 hours. (EA:[id number]) A12: slice 1, remainder of superior margin, perpendicularly sectioned. A13: remainder of slice 4, mass in relation to anterior and lateral margins. A14: mass in relation to posterior and medial margins. A15: slice 6, mass in relation to anterior and medial margin. (EA:[id number]) /MRV 03/06/2020 1233 Local . 01 Pathologist provided ICD-10: D24.9 . 01 CPT . 296102 Performed at: [address] [facility] [address], [place], [place] [id number] MD Edd Dickinson MD Phone: [phone]
[2020-03-02] MEDS: LACTATED RINGERS 1,000 ML 42 ML IV (06:53)
[2020-03-02] MEDS: CEFAZOLIN 2 GM/100 ML FROZ.PIGGY IV (07:48)
--- NOTE | 2020-03-02 07:50 | PM.HP.1 ---
History of Present Illness History of Present Illness Date Patient Seen: 03/02/20 Time Patient Seen: 07:50 Chief complaint: SDC Narrative: the patient is a woman with a left breast mass here for removal. It is tender. With a known left breast mass biopsy proved to be non malignant. The patient Patient History Medical History Antiphospholipid syndrome (Chronic) Chronic headache disorder (Chronic) GERD (gastroesophageal reflux disease) (Acute) Hypothyroidism (Chronic) ОЛЕГ on CPAP (Acute) Pulmonary embolism (Acute) Systemic lupus (Chronic) Surgical History History of carpal tunnel release (Resolved) History of esophagogastroduodenoscopy (EGD) (Acute) History of temporal artery biopsy (Acute 04/05/18) Family & Social History Family History Other Family history non-contributory Social History: household members family Tobacco & Substance use: Smoking Status Never smoker alcohol intake current alcohol intake frequency 0-2 drinks per day Substance Use Type does not use Meds Home Medications and Allergies Home Medications Medication Instructions Recorded Confirmed Type Disabled parking permit #1 ea 10/29/18 01/15/20 Rx loratadine 10 mg tablet 10 mg PO DAILY 12/11/18 03/02/20 History docusate sodium 100 mg capsule 200 mg PO BID #60 cap 07/22/19 03/02/20 Rx ondansetron 8 mg disintegrating 8 mg PO TID PRN #90 tab 08/16/19 03/02/20 Rx tablet lamotrigine 100 mg tablet 250 mg PO DAILY #75 tab 12/04/19 03/02/20 Rx hydroxychloroquine 200 mg tablet 400 mg PO DAILY #180 tab 01/14/20 03/02/20 Rx levothyroxine 75 mcg capsule 75 mcg PO DAILY #90 cap 01/14/20 03/02/20 Rx mycophenolate mofetil 200 mg/mL See Rx Instructions PO BID #160 ml 01/14/20 03/02/20 Rx oral suspension omeprazole 20 mg tablet,delayed 20 mg PO BID #180 tab 01/14/20 03/02/20 Rx release warfarin 5 mg tablet 5 mg PO DAILY #90 tab 01/14/20 03/02/20 Rx enoxaparin 100 mg/mL subcutaneous 100 mg SUBCUT Q12H #10 ml 02/12/20 03/02/20 Rx syringe Allergies Allergy/AdvReac Type Severity Reaction Status Date / Time nabumetone AdvReac Mild itchy, Verified 03/02/20 07:12 stomach upset Review of Systems Review of Systems ROS: Yes All systems reviewed with the patient and are negative except as otherwise documented Exam Vital Signs (past 8 hours): - 03/02/20 07:15 Temperature 97 F L Pulse Rate 116 H Respiratory Rate 20 Blood Pressure 131/80 Pulse Oximetry 98 Oxygen Delivery Method Room Air Narrative Exam Narrative: Pleasant cooperative patient no apparent distress. Lungs are clear to auscultation. No rales or rhonchi. Heart regular rate and rhythm no murmur gallop. Abdomen is soft nontender without mass. No obvious hernias. Patient is alert and oriented x3. Mass left breast measures about 2-1/2 by 2 cm upper mid breast. Tender to palpation. No overlying redness. No axillary nodes. Assessment & Plan Assessment & Plan narrative: Patient with a left breast mass. Here for excision. She has delayed having this removed. It had a prior minimally invasive biopsy that was negative for malignancy. Will proceed with excision. I have discussed the operation including risks of bleeding infection recurrence and scarring including possible keloid formation. She appears to understand wishes to proceed
--- NOTE | 2020-03-02 07:55 | PM.PREOP ---
Pre-operative Note COVID-19 COVID-19 status: Negative Result date/Date tested (Pos, Neg/Pending): 02/28/20 Interval Note History & Physical reviewed/Exam performed by Physician: Yes Changes to H&P: No
[2020-03-02] MEDS: BUPIVACAINE 0.5% (PF) VIAL 30 ML INJ (08:11)
--- NOTE | 2020-03-02 08:56 | SUR.PHASEI ---
Patient arousable to verbal but falls back asleep. VSS.
--- NOTE | 2020-03-02 09:00 | P.OP_ITS ---
Operative Date/Time/Diagnoses Date of procedure: 03/02/20 Time of procedure: 09:00 Pre-op diagnosis: Left breast mass. Post-op diagnosis: same Procedure & Clinicians Procedure: Excisional biopsy Same procedure as scheduled: Yes Indications: Tender mass in left breast. Minimally invasive biopsy negative for malignancy. Surgeon: Butch Briseno Click Yes if Unassisted: Yes Anesthesia Type: General Operative Notes Findings: Will circumscribed mass deep in the left breast above the nipple areolar complex near the midline Closure Type: primary Specimen(s): other (Mass) Prosthetic devices, grafts, tissues, transplants, or devices: None Estimated Blood Loss (mL): 5 Blood products transfused: none Procedure in detail: Patient is placed supine on the operating room table underwent general LMA anesthesia. SHe was prepped and draped in the usual fashion. Curvilinear incision was made overlying the mass and carried down near the level the mass. Dissection was made circumferentially and the mass deliv ered into the wound. The posterior wall was divided. All the dissection was done with cautery. Hemostasis was achieved. The space was closed with interrupted 3 0 Vicryl. The skin was closed with a running 4 0 Vicryl subcuticular stitch and Steri-Strips. Dressing was applied the patient was awakened extubated taken recovery room good condition Complications: none Post-operative Condition: stable Disposition: PACU
[2020-03-02] MEDS: ONDANSETRON 4 MG/2 ML INJ IV ×2 (09:06→09:25)
[2020-03-02] MEDS: OXYCODONE/ACETAMINOPHEN 5/325 TABLET 1 TAB PO (09:06)
[2020-03-02] MEDS: METOCLOPRAMIDE 10 MG/2 ML INJ IV (09:21)
--- NOTE | 2020-03-02 09:23 | SUR.PHASEI ---
Patient continues to c/o mild nausea even after zofran. Offered Reglan but patient refuses, saying she's afraid she might have an allergic reaction if she's not familiar with the medication.
--- NOTE | 2020-03-02 10:17 | SUR.PHASEII ---
Patient declined percocet, requested tylenol. Dr. Briseno notified and Tylenol ordered.
[2020-03-02] MEDS: ACETAMINOPHEN 325 MG TABLET 650 MG PO (10:26)
--- NOTE | 2020-03-02 11:11 | SUR.PHASEII ---
RR 32. Patient denied dyspnea.
--- NOTE | 2020-03-02 11:32 | SUR.PHASEII ---
Dr. Sandoval notified resp rate 32, otherwise condition stable. Patient may discharge per MD.
== END 2020-03-02 11:20 | disposition home or self-care (01) ==
PROVIDERS: PCP Family Medicine; Referring Provider Specialist; Visit Provider Specialist
PROC: (CPT 19120; principal; 2020-03-02 07:45)
DX: D24.2 Benign neoplasm of left breast (principal); G47.33 Obstructive sleep apnea (adult) (pediatric); E03.9 Hypothyroidism, unspecified; K21.9 Gastro-esophageal reflux disease without esophagitis; M32.9 Systemic lupus erythematosus, unspecified; D68.61 Antiphospholipid syndrome; R51.9 Headache, unspecified
CPT/HCPCS: 19120; J0690; J1100; J1885; J2250; J2405; J2704; J2765; J3010

== ENCOUNTER 2020-04-06 12:00 | Outpatient (RCR) | payer OTHER, MEDICAID, SELFPAY ==
--- NOTE | 2020-01-29 11:02 | PT.OIE ---
Current Diagnoses Carpal tunnel syndrome, unspecified upper limb (01/29/20) Carpal tunnel syndrome, right upper limb (01/29/20) Pain in right wrist (01/29/20) Stiffness of right wrist, not elsewhere classified (01/29/20) Past Medical History (Last Reviewed 11/20/19 @ 11:35 by Eleazar Lewis MD) Antiphospholipid syndrome (Chronic) Chronic headache disorder (Chronic) GERD (gastroesophageal reflux disease) (Acute) Hypothyroidism (Chronic) Pulmonary embolism (Acute) Systemic lupus (Chronic) Past Surgical History (Last Reviewed 11/20/19 @ 11:35 by Eleazar Lewis MD) History of carpal tunnel release (Resolved) Visit Care Team Role Provider Type Frida Singh MD Attending Provider Physician Primary Care Provider Referring Provider Specialty: [facility] Address: [address] [place] [address] Email: [email or web address] Physical Therapy Initial Evaluation PT-OP-A Visit Information Start: 01/29/20 10:28 Freq: Status: Active Protocol: Document 01/29/20 09:45 DCW (Rec: 01/29/20 11:02 DC [id number]) Out-Patient Physical Therapy Visit Information Visit Information Visit Type Initial Evaluation Visit Start Time 09:45 Visit Stop Time 10:15 Total Visit Minutes 30 Visit Number 1 Number of SAP BW CONSULTANT Visits 0 Evaluation Information Evaluation Date 01/29/20 PT-OP-B Current Condition Start: 01/29/20 10:28 Freq: Status: Active Protocol: Document 01/29/20 09:45 DCW (Rec: 01/29/20 11:02 DC [id number]) Current Condition History of Current Condition Onset Date one month history Current Complaints Finger/hand numbness, arm pain History of Current Condition Pt is a 24 year old female presenting with a one month history of right hand and finger numbness, as well as forearm pain. Pt reports two years ago, she had the same pain in her left arm, was eventually diagnosed with carpal tunnel syndrome, and one year ago underwent a surgical release, which helped eliminate her symptoms. Pt is pretty sure she has carpal tunnel syndrome now in the right, because it feels the same, but she would like to avoid surgery again if possible. Pt reports she has fairly constant numbness in her hand and fingers (mainly index and middle), but then at night she gets pain in her right forearm. Pt also notes worsened pain with heavy lifting. Pt has tried splints at night, but they seemed to make it worse. 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 PT-OP-C Subjective Start: 01/29/20 10:28 Freq: Status: Active Protocol: Document 01/29/20 09:45 DCW (Rec: 01/29/20 11:02 DCW [id number]) OP-PT Subjective Patient Comments Patient Comments I really don't want any more surgery. Patient Questionnaires Quick Dash- Upper Extremity Quick Dash UE Score 70.45% Quick Dash UE Impairment 60 to 79% Impaired (Score 60- 79) OP-PT Pain Assessment Pain Assessment Grid Paper Pain Assessment Grid Completed Yes Location Right Arm Intensity 7 Scale Used Numeric (0 - 10) Radiating Location Elbow down to fingers Variations/Patterns Numbness in hand/fingers, pain in forearm PT-OP-F Manual Assessment Start: 01/29/20 10:28 Freq: Status: Active Protocol: Document 01/29/20 09:45 DCW (Rec: 01/29/20 11:02 DCW [id number]) Manual Assessments Soft Tissue Assessment Soft Tissue Mobility Assessment Increased tone and tenderness to palpation 3/4 - Wincing and withdraw in Wrist Flexors PT-OP-K Range of Motion Start: 01/29/20 10:28 Freq: Status: Active Protocol: Document 01/29/20 09:45 DCW (Rec: 01/29/20 11:02 DCW [id number]) Wrist Goniometric Range of Motion Wrist Right Flexion Active (degrees) 75 Extension Active (degrees) 45 Ulnar Deviation Active (degrees) 28 Radial Deviation Active (degrees) 16 ROM Limitations Wrist Limitations of Range of Motion Soft Tissue Tightness PT-OP-L Special Tests Start: 01/29/20 10:28 Freq: Status: Active Protocol: Document 01/29/20 09:45 DCW (Rec: 01/29/20 11:02 DCW [id number]) Special Tests Wrist/Hand Special Tests Tinel's Sign Test Results Positive Right Reverse Phalen's Test Test Results Positive Right Phalen's Test Test Results Negative PT-OP-M Strength Start: 01/29/20 10:28 Freq: Status: Active Protocol: Document 01/29/20 09:45 DCW (Rec: 01/29/20 11:02 [facility] [id number]) Wrist Strength Wrist Manual Muscle Testing Right Flexion (C7) 4+ Good+ Extension (C6) 4+ Good+ Ulnar Deviation 4 Good Radial Deviation 4 Good Hand Flexographic Printing Press Operator/Pinch Strength Hand Dominance Hand Dominance Left Hand Strength Right Flexographic Printing Press Operator (lbs) 28.3 Comments Three-trial Average (35#, 25#, 25#) Left Flexographic Printing Press Operator (lbs) 40 Comments Three-trial Average (45#, 40#, 35#) PT-OP-Q Treatments Start: 01/29/20 10:28 Freq: Status: Active Protocol: Document 01/29/20 09:45 DC (Rec: 01/29/20 11:02 [facility] [id number]) Therapeutic Exercises Sitting Exercises 1 Sitting Exercise Name Wrist Flexor stretch Side right PT-OP-T Assessment and Plan Start: 01/29/20 09:36 Freq: Status: Active Protocol: Document 01/29/20 09:45 [facility] (Rec: 01/29/20 11:02 [facility] [id number]) Physical Therapy Assessment Rehab Potential Rehabilitation Potential Good Evaluation Complexity Number of Personal Factors/Comorbidities 3 or More Number of Body Systems Impaired 3 Clinical Presentation at Evaluation Evolving Impairments Impairments Functional Activities,Pain,ROM ,Soft Tissue Mobility,Strength ,Tone Goals Four Impairment Arm pain/hand numbness limits sleep at night Egg Crater Goal (LTG) Pt to report no missed sleep due to arm pain and hand numbness for four days out of a week. LTG Duration 03/30/20 Three Impairment Forearm tightness limits R Wrist AROM extension Fdc Goal (LTG) Pt to increase AROM extension to 60? to demonstrate decreased tone in right wrist flexors LTG Duration 03/30/20 Two Impairment Pt displays right hand video network engineer weakness Fdc Goal (LTG) Pt to increase video network engineer strength of right hand to at least 35# LTG Duration 03/30/20 One Impairment Pt does not have an appropriate home exercise program Short Term Goal (STG) Pt to be independent and compliant with an appropriate HEP STG Duration 02/28/20 Assessment Summary Assessment Pt presents with signs and symptoms consistent with referral diagnosis of right Carpal Tunnel Syndrome. Pt shows positive results for Reverse Phalen's Test and Tinel's sign, and experiences numbness in the hand, mainly in her index and middle finger . Additionally, pt experiences forearm pain, mainly at night , and presents today with increase tone and impaired soft tissue mobility in her right wrist flexors, which may be adding undue stress to the Carpal Tunnel. Pt should benefit from skilled therapy focusing on improving soft tissue mobility, increasing ROM/flexibility, decreasing inflammation, and working on strengthening right finger extensors. Physical Therapy Plan Frequency and Duration Frequency of Treatment 2x/Week Duration of Treatment Two months Plan of Care Start Date 01/29/20 Plan of Care End Date 03/30/20 Therapeutic Interventions Therapeutic Interventions Home Exercise Program,Manual Therapy,Patient/Caregiver Education,Self-Care/Home Management,Soft Tissue Mobilization,Therapeutic Activities,Therapeutic Exercises Modalities Cold Pack/Ice Massage,Electric Stimulation,Hot Packs, Ultrasound Next Visit Focus/Plan Next Note Type Treatment Note Next Visit Plan STM, Flexibility/stretching, video network engineer strengthening, finger extensor strengthening, US to decrease any edema/ inflammation
--- NOTE | 2020-01-29 11:03 | PT.OPPOC ---
Physical, Occupational & Speech Therapy At [facility] Current Diagnoses Carpal tunnel syndrome, unspecified upper limb (01/29/20) Carpal tunnel syndrome, right upper limb (01/29/20) Pain in right wrist (01/29/20) Stiffness of right wrist, not elsewhere classified (01/29/20) Visit Care Team Role Provider Type Frida Singh MD Attending Provider Physician Primary Care Provider Referring Provider Specialty: [facility] Address: [address] [place] [address], [facility] [place], [facility] Email: [email or web address] Plan Of Care PT-OP-T Assessment and Plan Start: 01/29/20 09:36 Freq: Status: Active Protocol: Document 01/29/20 09:45 DCW (Rec: 01/29/20 11:02 DCW [id number]) Physical Therapy Assessment Rehab Potential Rehabilitation Potential Good Evaluation Complexity Number of Personal Factors/Comorbidities 3 or More Number of Body Systems Impaired 3 Clinical Presentation at Evaluation Evolving Impairments Impairments Functional Activities,Pain,ROM ,Soft Tissue Mobility,Strength ,Tone Goals Four Impairment Arm pain/hand numbness limits sleep at night Penitentiary Goal (LTG) Pt to report no missed sleep due to arm pain and hand numbness for four days out of a week. LTG Duration 03/30/20 Three Impairment Forearm tightness limits R Wrist AROM extension Frame Tender Goal (LTG) Pt to increase AROM extension to 60? to demonstrate decreased tone in right wrist flexors LTG Duration 03/30/20 Two Impairment Pt displays right hand telegraphic typewriter operator weakness Penitentiary Goal (LTG) Pt to increase telegraphic typewriter operator strength of right hand to at least 35# LTG Duration 03/30/20 One Impairment Pt does not have an appropriate home exercise program Short Term Goal (STG) Pt to be independent and compliant with an appropriate HEP STG Duration 02/28/20 Assessment Summary Assessment Pt presents with signs and symptoms consistent with referral diagnosis of right Carpal Tunnel Syndrome. Pt shows positive results for Reverse Phalen's Test and Tinel's sign, and experiences numbness in the hand, mainly in her index and middle finger . Additionally, pt experiences forearm pain, mainly at night , and presents today with increase tone and impaired soft tissue mobility in her right wrist flexors, which may be adding undue stress to the Carpal Tunnel. Pt should benefit from skilled therapy focusing on improving soft tissue mobility, increasing ROM/flexibility, decreasing inflammation, and working on strengthening right finger extensors. Physical Therapy Plan Frequency and Duration Frequency of Treatment 2x/Week Duration of Treatment Two months Plan of Care Start Date 01/29/20 Plan of Care End Date 03/30/20 Therapeutic Interventions Therapeutic Interventions Home Exercise Program,Manual Therapy,Patient/Caregiver Education,Self-Care/Home Management,Soft Tissue Mobilization,Therapeutic Activities,Therapeutic Exercises Modalities Cold Pack/Ice Massage,Electric Stimulation,Hot Packs, Ultrasound Next Visit Focus/Plan Next Note Type Treatment Note Next Visit Plan STM, Flexibility/stretching, telegraphic typewriter operator strengthening, finger extensor strengthening, US to decrease any edema/ inflammation Plan of Care Dates Plan of Care Start Date 01/29/20 Plan of Care End Date 03/30/20 Electronically Signed by: Dwayne Encarnacion, PT 01/29/20 1102 Please Sign and Return: I have reviewed this Plan of Care and certify that the skilled therapy services above are required to meet the patient?s needs. Physician Signature Date Printed Name and Credentials Clinical Instructor Signature Printed Name and Credentials
--- NOTE | 2020-02-03 14:30 | PT.OTN ---
Current Diagnoses Carpal tunnel syndrome, unspecified upper limb (02/03/20) Carpal tunnel syndrome, right upper limb (02/03/20) Pain in right wrist (02/03/20) Stiffness of right wrist, not elsewhere classified (02/03/20) Physical Therapy Treatment Note PT-OP-A Visit Information Start: 01/29/20 10:28 Freq: Status: Active Protocol: Document 02/03/20 13:51 SP (Rec: 02/03/20 16:00 SP [id number]) Out-Patient Physical Therapy Visit Information Visit Information Visit Type Treatment Note Visit Start Time 13:51 Visit Stop Time 14:30 Total Visit Minutes 39 Visit Number 2 Number of SYSTEM OPERATION SUPERINTENDENT Visits 1 PT-OP-B Current Condition Start: 01/29/20 10:28 Freq: Status: Active Protocol: Document 01/29/20 09:45 DCW (Rec: 01/29/20 11:02 DCW [id number]) Current Condition History of Current Condition Onset Date one month history Current Complaints Finger/hand numbness, arm pain History of Current Condition Pt is a 24 year old female presenting with a one month history of right hand and finger numbness, as well as forearm pain. Pt reports two years ago, she had the same pain in her left arm, was eventually diagnosed with carpal tunnel syndrome, and one year ago underwent a surgical release, which helped eliminate her symptoms. Pt is pretty sure she has carpal tunnel syndrome now in the right, because it feels the same, but she would like to avoid surgery again if possible. Pt reports she has fairly constant numbness in her hand and fingers (mainly index and middle), but then at night she gets pain in her right forearm. Pt also notes worsened pain with heavy lifting. Pt has tried splints at night, but they seemed to make it worse. 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 Pt stated walked from [facility] school area and little SOB. PT-OP-F Manual Assessment Start: 01/29/20 10:28 Freq: Status: Active Protocol: Document 01/29/20 09:45 DCW (Rec: 01/29/20 11:02 DCW [id number]) Manual Assessments Soft Tissue Assessment Soft Tissue Mobility Assessment Increased tone and tenderness to palpation 3/4 - Wincing and withdraw in Wrist Flexors PT-OP-K Range of Motion Start: 01/29/20 10:28 Freq: Status: Active Protocol: Document 01/29/20 09:45 DCW (Rec: 01/29/20 11:02 DCW [id number]) Wrist Goniometric Range of Motion Wrist Right Flexion Active (degrees) 75 Extension Active (degrees) 45 Ulnar Deviation Active (degrees) 28 Radial Deviation Active (degrees) 16 ROM Limitations Wrist Limitations of Range of Motion Soft Tissue Tightness PT-OP-L Special Tests Start: 01/29/20 10:28 Freq: Status: Active Protocol: Document 01/29/20 09:45 DCW (Rec: 01/29/20 11:02 DCW [id number]) Special Tests Wrist/Hand Special Tests Tinel's Sign Test Results Positive Right Reverse Phalen's Test Test Results Positive Right Phalen's Test Test Results Negative PT-OP-M Strength Start: 01/29/20 10:28 Freq: Status: Active Protocol: Document 01/29/20 09:45 DCW (Rec: 01/29/20 11:02 DCW [id number]) Wrist Strength Wrist Manual Muscle Testing Right Flexion (C7) 4+ Good+ Extension (C6) 4+ Good+ Ulnar Deviation 4 Good Radial Deviation 4 Good Hand Cost Estimating Clerk/Pinch Strength Hand Dominance Hand Dominance Left Hand Strength Right Cost Estimating Clerk (lbs) 28.3 Comments Three-trial Average (35#, 25#, 25#) Left Cost Estimating Clerk (lbs) 40 Comments Three-trial Average (45#, 40#, 35#) PT-OP-Q Treatments Start: 01/29/20 10:28 Freq: Status: Active Protocol: Document 02/03/20 13:51 SP (Rec: 02/03/20 16:00 SP [id number]) Therapeutic Exercises Supine Exercises finger abd Side right Reps/Minutes 5 sec hold x10 finger extension Side right Resistance AROM (contact table 1-5th MCP) Reps/Minutes 2x10 wrist flexion stretch Side right Reps/Minutes 30 x3 Other Exercises median nerve glide Other Exercise Name seated Side right Reps/Minutes x10 Comments head with UE Manual Therapy Treatment Soft Tissue Mobilization forearm flexors, SFT, MTPS Body Location R Mobilization Type Cross-Friction,Myofascial Release Intensity/Depth Moderate Body Position Sitting Joint Mobilizations R Joint carpals, MTP Direction PA, AP, rotation Grade II Body Position Sitting Comments pain free range PT-OP-R Modalities Start: 01/29/20 10:28 Freq: Status: Active Protocol: Document 02/03/20 13:51 SP (Rec: 02/03/20 16:00 SP [id number]) Hot Pack/Cold Pack Treatment CP Location R forearm Patient Position Sitting Treatment Duration (minutes) 8 Patient Tolerance Good PT-OP-T Assessment and Plan Start: 01/29/20 09:36 Freq: Status: Active Protocol: Document 02/03/20 13:51 SP (Rec: 02/03/20 16:00 SP [id number]) Physical Therapy Assessment Goals Four Impairment Arm pain/hand numbness limits sleep at night Hotel Staff Member Goal (LTG) Pt to report no missed sleep due to arm pain and hand numbness for four days out of a week. LTG Duration 03/30/20 Three Impairment Forearm tightness limits R Wrist AROM extension Alf Goal (LTG) Pt to increase AROM extension to 60? to demonstrate decreased tone in right wrist flexors LTG Duration 03/30/20 Two Impairment Pt displays right hand doughnut fryer weakness Alf Goal (LTG) Pt to increase doughnut fryer strength of right hand to at least 35# LTG Duration 03/30/20 One Impairment Pt does not have an appropriate home exercise program Short Term Goal (STG) Pt to be independent and compliant with an appropriate HEP STG Duration 02/28/20 Assessment Summary Assessment Pt tolerated tx well. Decreased tingling in R hand end of tx. Educated self STMs using other hand or tool assist R forearm flexors. Cuing requried with demonstration for HEP added today with no adverse affects. Will initate eccentric eccentric wrist flexion next tx with TB and postural exercises if tolerated. Physical Therapy Plan Frequency and Duration Frequency of Treatment 2x/Week Duration of Treatment Two months Plan of Care Start Date 01/29/20 Plan of Care End Date 03/30/20 Therapeutic Interventions Therapeutic Interventions Home Exercise Program,Manual Therapy,Patient/Caregiver Education,Self-Care/Home Management,Soft Tissue Mobilization,Therapeutic Activities,Therapeutic Exercises Modalities Cold Pack/Ice Massage,Electric Stimulation,Hot Packs, Ultrasound Next Visit Focus/Plan Next Note Type Treatment Note Next Visit Plan Assess response to last tx: manual, AROM, median nerve glides. Next tx continue per POC: STM, Flexibility/stretching, doughnut fryer strengthening, finger extensor strengthening, US to decrease any edema/ inflammation
--- NOTE | 2020-02-07 13:52 | PT.OTN ---
Current Diagnoses Carpal tunnel syndrome, unspecified upper limb (02/07/20) Carpal tunnel syndrome, right upper limb (02/07/20) Pain in right wrist (02/07/20) Stiffness of right wrist, not elsewhere classified (02/07/20) Physical Therapy Treatment Note PT-OP-A Visit Information Start: 01/29/20 10:28 Freq: Status: Active Protocol: Document 02/07/20 13:06 SP (Rec: 02/07/20 15:44 SP [id number]) Out-Patient Physical Therapy Visit Information Visit Information Visit Type Treatment Note Visit Start Time 13:06 Visit Stop Time 13:52 Total Visit Minutes 46 Visit Number 3 Number of SECONDARY SCHOOL TEACHER Visits 2 PT-OP-B Current Condition Start: 01/29/20 10:28 Freq: Status: Active Protocol: Document 01/29/20 09:45 DCW (Rec: 01/29/20 11:02 DCW [id number]) Current Condition History of Current Condition Onset Date one month history Current Complaints Finger/hand numbness, arm pain History of Current Condition Pt is a 24 year old female presenting with a one month history of right hand and finger numbness, as well as forearm pain. Pt reports two years ago, she had the same pain in her left arm, was eventually diagnosed with carpal tunnel syndrome, and one year ago underwent a surgical release, which helped eliminate her symptoms. Pt is pretty sure she has carpal tunnel syndrome now in the right, because it feels the same, but she would like to avoid surgery again if possible. Pt reports she has fairly constant numbness in her hand and fingers (mainly index and middle), but then at night she gets pain in her right forearm. Pt also notes worsened pain with heavy lifting. Pt has tried splints at night, but they seemed to make it worse. 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 PT-OP-C Subjective Start: 01/29/20 10:28 Freq: Status: Active Protocol: Document 02/07/20 13:06 SP (Rec: 02/07/20 15:44 SP [id number]) OP-PT Subjective Patient Comments Patient Comments Pt reported R hand little sore after last tx, compliant with HEP given last tx. The manual things did helped, susan moving joints, tried to do at home. PT-OP-F Manual Assessment Start: 01/29/20 10:28 Freq: Status: Active Protocol: Document 01/29/20 09:45 DCW (Rec: 01/29/20 11:02 DCW [id number]) Manual Assessments Soft Tissue Assessment Soft Tissue Mobility Assessment Increased tone and tenderness to palpation 3/4 - Wincing and withdraw in Wrist Flexors PT-OP-K Range of Motion Start: 01/29/20 10:28 Freq: Status: Active Protocol: Document 01/29/20 09:45 DCW (Rec: 01/29/20 11:02 DCW [id number]) Wrist Goniometric Range of Motion Wrist Right Flexion Active (degrees) 75 Extension Active (degrees) 45 Ulnar Deviation Active (degrees) 28 Radial Deviation Active (degrees) 16 ROM Limitations Wrist Limitations of Range of Motion Soft Tissue Tightness PT-OP-L Special Tests Start: 01/29/20 10:28 Freq: Status: Active Protocol: Document 01/29/20 09:45 DCW (Rec: 01/29/20 11:02 DCW [id number]) Special Tests Wrist/Hand Special Tests Tinel's Sign Test Results Positive Right Reverse Phalen's Test Test Results Positive Right Phalen's Test Test Results Negative PT-OP-M Strength Start: 01/29/20 10:28 Freq: Status: Active Protocol: Document 01/29/20 09:45 DCW (Rec: 01/29/20 11:02 DCW [id number]) Wrist Strength Wrist Manual Muscle Testing Right Flexion (C7) 4+ Good+ Extension (C6) 4+ Good+ Ulnar Deviation 4 Good Radial Deviation 4 Good Hand Book Packer/Pinch Strength Hand Dominance Hand Dominance Left Hand Strength Right Book Packer (lbs) 28.3 Comments Three-trial Average (35#, 25#, 25#) Left Book Packer (lbs) 40 Comments Three-trial Average (45#, 40#, 35#) PT-OP-Q Treatments Start: 01/29/20 10:28 Freq: Status: Active Protocol: Document 02/07/20 13:06 SP (Rec: 02/07/20 15:44 SP [id number]) Therapeutic Exercises Sitting Exercises wrist TB e Sitting Exercise Name ext, supination, pronation Equipment Used Tb #1 Reps/Minutes x10 each MTP extension Sitting Exercise Name 2-5, 1st abd, ext Reps/Minutes x10 each scap retraction w/ ER TB Side bilateral Resistance Tb x1 Reps/Minutes 5 sec hold x10 Comments cued scap retract/depression, upright sit posture theraputty Sitting Exercise Name fist, individual finger flexion 1-4, 5th thumb print and flexion dig Side right Equipment Used forearm rested on table Reps/Minutes x5 reps each 1 Sitting Exercise Name Wrist Flexor stretch Side right Equipment Used forearm rested on table Reps/Minutes 15 sec x5 sec hold Manual Therapy Treatment Soft Tissue Mobilization forearm flexors, SFT, MTPS Body Location R Mobilization Type Cross-Friction,Myofascial Release Intensity/Depth Moderate Body Position Sitting Joint Mobilizations R Joint carpals, MTP Direction PA, AP, rotation Grade II Body Position Sitting Comments pain free range PT-OP-R Modalities Start: 01/29/20 10:28 Freq: Status: Active Protocol: Document 02/03/20 13:51 SP (Rec: 02/03/20 16:00 SP [id number]) Hot Pack/Cold Pack Treatment CP Location R forearm Patient Position Sitting Treatment Duration (minutes) 8 Patient Tolerance Good PT-OP-T Assessment and Plan Start: 01/29/20 09:36 Freq: Status: Active Protocol: Document 02/07/20 13:06 SP (Rec: 02/07/20 15:44 SP [id number]) Physical Therapy Assessment Goals Four Impairment Arm pain/hand numbness limits sleep at night [facility] Goal (LTG) Pt to report no missed sleep due to arm pain and hand numbness for four days out of a week. LTG Duration 03/30/20 Three Impairment Forearm tightness limits R Wrist AROM extension Manager Background Goal (LTG) Pt to increase AROM extension to 60? to demonstrate decreased tone in right wrist flexors LTG Duration 03/30/20 Two Impairment Pt displays right hand stogy roller weakness Manager Background Goal (LTG) Pt to increase stogy roller strength of right hand to at least 35# LTG Duration 03/30/20 One Impairment Pt does not have an appropriate home exercise program Short Term Goal (STG) Pt to be independent and compliant with an appropriate HEP STG Duration 02/28/20 Assessment Summary Assessment Pt reported R UE 3rd MTP finger flexors tiring after theraputty, and some burning at thumb dorsal webbing area after Tb end of tx. Cued not to stogy roller to hard on band during wrist ex to allow for decreased adverse reaction to gripping, manual help relax hand. Pt reports R shld sore but improved post scap retraction. Physical Therapy Plan Frequency and Duration Frequency of Treatment 2x/Week Duration of Treatment Two months Plan of Care Start Date 01/29/20 Plan of Care End Date 03/30/20 Therapeutic Interventions Therapeutic Interventions Home Exercise Program,Manual Therapy,Patient/Caregiver Education,Self-Care/Home Management,Soft Tissue Mobilization,Therapeutic Activities,Therapeutic Exercises Modalities Cold Pack/Ice Massage,Electric Stimulation,Hot Packs, Ultrasound Next Visit Focus/Plan Next Note Type Treatment Note Next Visit Plan Assess response to last tx: manual, AROM and strengthening : theraputty, TB wrist. Next tx continue per POC: STM, Flexibility/stretching, stogy roller strengthening, finger extensor strengthening, US to decrease any edema/ inflammation
--- NOTE | 2020-02-11 14:30 | PT.OTN ---
Current Diagnoses Carpal tunnel syndrome, unspecified upper limb (02/11/20) Carpal tunnel syndrome, right upper limb (02/11/20) Pain in right wrist (02/11/20) Stiffness of right wrist, not elsewhere classified (02/11/20) Physical Therapy Treatment Note PT-OP-A Visit Information Start: 01/29/20 10:28 Freq: Status: Active Protocol: Document 02/11/20 13:50 SP (Rec: 02/11/20 16:18 SP [id number]) Out-Patient Physical Therapy Visit Information Visit Information Visit Type Treatment Note Visit Start Time 13:50 Visit Stop Time 14:30 Total Visit Minutes 40 Visit Number 4 Number of ADMINISTRATIVE TECH Visits 3 PT-OP-B Current Condition Start: 01/29/20 10:28 Freq: Status: Active Protocol: Document 01/29/20 09:45 DCW (Rec: 01/29/20 11:02 DCW [id number]) Current Condition History of Current Condition Onset Date one month history Current Complaints Finger/hand numbness, arm pain History of Current Condition Pt is a 24 year old female presenting with a one month history of right hand and finger numbness, as well as forearm pain. Pt reports two years ago, she had the same pain in her left arm, was eventually diagnosed with carpal tunnel syndrome, and one year ago underwent a surgical release, which helped eliminate her symptoms. Pt is pretty sure she has carpal tunnel syndrome now in the right, because it feels the same, but she would like to avoid surgery again if possible. Pt reports she has fairly constant numbness in her hand and fingers (mainly index and middle), but then at night she gets pain in her right forearm. Pt also notes worsened pain with heavy lifting. Pt has tried splints at night, but they seemed to make it worse. 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 PT-OP-C Subjective Start: 01/29/20 10:28 Freq: Status: Active Protocol: Document 02/11/20 13:50 SP (Rec: 02/11/20 16:18 SP [id number]) OP-PT Subjective Patient Comments Patient Comments Pt reported wrist/hand does hurt after tx but only last for approx 10 min. Compliant with putty and TB exercises given. Pt reported is having breast lump removed 03/02 so will have to cancel appts that week. PT-OP-F Manual Assessment Start: 01/29/20 10:28 Freq: Status: Active Protocol: Document 01/29/20 09:45 DCW (Rec: 01/29/20 11:02 DCW [id number]) Manual Assessments Soft Tissue Assessment Soft Tissue Mobility Assessment Increased tone and tenderness to palpation 3/4 - Wincing and withdraw in Wrist Flexors PT-OP-K Range of Motion Start: 01/29/20 10:28 Freq: Status: Active Protocol: Document 01/29/20 09:45 DCW (Rec: 01/29/20 11:02 DCW [id number]) Wrist Goniometric Range of Motion Wrist Right Flexion Active (degrees) 75 Extension Active (degrees) 45 Ulnar Deviation Active (degrees) 28 Radial Deviation Active (degrees) 16 ROM Limitations Wrist Limitations of Range of Motion Soft Tissue Tightness PT-OP-L Special Tests Start: 01/29/20 10:28 Freq: Status: Active Protocol: Document 01/29/20 09:45 DCW (Rec: 01/29/20 11:02 DCW [id number]) Special Tests Wrist/Hand Special Tests Tinel's Sign Test Results Positive Right Reverse Phalen's Test Test Results Positive Right Phalen's Test Test Results Negative PT-OP-M Strength Start: 01/29/20 10:28 Freq: Status: Active Protocol: Document 01/29/20 09:45 DCW (Rec: 01/29/20 11:02 DCW [id number]) Wrist Strength Wrist Manual Muscle Testing Right Flexion (C7) 4+ Good+ Extension (C6) 4+ Good+ Ulnar Deviation 4 Good Radial Deviation 4 Good Hand Deliver Driver/Pinch Strength Hand Dominance Hand Dominance Left Hand Strength Right Deliver Driver (lbs) 28.3 Comments Three-trial Average (35#, 25#, 25#) Left Deliver Driver (lbs) 40 Comments Three-trial Average (45#, 40#, 35#) PT-OP-Q Treatments Start: 01/29/20 10:28 Freq: Status: Active Protocol: Document 02/11/20 13:50 SP (Rec: 02/11/20 16:18 SP [id number]) Therapeutic Exercises Sitting Exercises wrist TB e Sitting Exercise Name ext, supination, pronation Equipment Used Tb #1 Reps/Minutes x10 each MTP extension Sitting Exercise Name 2-5, 1st abd, ext Resistance TB #1 Reps/Minutes x10 each Comments cued not hyperextending DIP, IP scap retraction w/ ER TB Side bilateral Resistance Tb x1 Reps/Minutes 5 sec hold x10 Comments cued scap retract/depression, upright sit posture theraputty Sitting Exercise Name fist, individual finger flexion 1-4, 5th thumb print and flexion dig Side right Equipment Used forearm rested on table Reps/Minutes x5 reps each Comments see hand outs Manual Therapy Treatment Soft Tissue Mobilization forearm flexors, SFT, MTPS Body Location R Mobilization Type Cross-Friction,Myofascial Release Intensity/Depth Moderate Body Position Sitting Comments also instruction self MWM, primarily 1MTP Joint Mobilizations R Joint carpals, MTP Direction PA, AP, rotation Grade II Body Position Sitting Comments pain free range PT-OP-R Modalities Start: 01/29/20 10:28 Freq: Status: Active Protocol: Document 02/03/20 13:51 SP (Rec: 02/03/20 16:00 SP [id number]) Hot Pack/Cold Pack Treatment CP Location R forearm Patient Position Sitting Treatment Duration (minutes) 8 Patient Tolerance Good PT-OP-T Assessment and Plan Start: 01/29/20 09:36 Freq: Status: Active Protocol: Document 02/11/20 13:50 SP (Rec: 02/11/20 16:18 SP [id number]) Physical Therapy Assessment Goals Four Impairment Arm pain/hand numbness limits sleep at night Ornithology Teacher Goal (LTG) Pt to report no missed sleep due to arm pain and hand numbness for four days out of a week. LTG Duration 03/30/20 Three Impairment Forearm tightness limits R Wrist AROM extension Ornithology Teacher Goal (LTG) Pt to increase AROM extension to 60? to demonstrate decreased tone in right wrist flexors LTG Duration 03/30/20 Two Impairment Pt displays right hand slat basket top maker weakness Ornithology Teacher Goal (LTG) Pt to increase slat basket top maker strength of right hand to at least 35# LTG Duration 03/30/20 One Impairment Pt does not have an appropriate home exercise program Short Term Goal (STG) Pt to be independent and compliant with an appropriate HEP STG Duration 02/28/20 Assessment Summary Assessment Pt reported thenar eminence burning during theraputty, instructed self MWM pin finger movement with improvement in decrease tension. Reviewed HEP , cuing required for set up and proepr form and compliant with ex at home. Next tx add scap stabilization lat pull down, therabar pron/supin, wrist stretching, review continue shd ER and nerve glide if needed. Physical Therapy Plan Frequency and Duration Frequency of Treatment 2x/Week Duration of Treatment Two months Plan of Care Start Date 01/29/20 Plan of Care End Date 03/30/20 Therapeutic Interventions Therapeutic Interventions Home Exercise Program,Manual Therapy,Patient/Caregiver Education,Self-Care/Home Management,Soft Tissue Mobilization,Therapeutic Activities,Therapeutic Exercises Modalities Cold Pack/Ice Massage,Electric Stimulation,Hot Packs, Ultrasound Next Visit Focus/Plan Next Note Type Treatment Note Next Visit Plan Assess response to last tx: manual, AROM and TB strengthening: theraputty, TB wrist. Next tx continue per POC and see assessment suggestions: STM, Flexibility/stretching, slat basket top maker strengthening, finger extensor strengthening, US to decrease any edema/ inflammation
--- NOTE | 2020-02-14 15:24 | PT.OTN ---
Current Diagnoses Carpal tunnel syndrome, unspecified upper limb (02/14/20) Carpal tunnel syndrome, right upper limb (02/14/20) Pain in right wrist (02/14/20) Stiffness of right wrist, not elsewhere classified (02/14/20) Physical Therapy Treatment Note PT-OP-A Visit Information Start: 01/29/20 10:28 Freq: Status: Active Protocol: Document 02/14/20 14:35 SP (Rec: 02/14/20 16:14 SP [id number]) Out-Patient Physical Therapy Visit Information Visit Information Visit Type Treatment Note Visit Note 5th visit next tx. Visit Start Time 14:35 Visit Stop Time 15:24 Total Visit Minutes 49 Visit Number 5 Number of MANAGER SEARCH Visits 4 PT-OP-B Current Condition Start: 01/29/20 10:28 Freq: Status: Active Protocol: Document 01/29/20 09:45 DCW (Rec: 01/29/20 11:02 DCW [id number]) Current Condition History of Current Condition Onset Date one month history Current Complaints Finger/hand numbness, arm pain History of Current Condition Pt is a 24 year old female presenting with a one month history of right hand and finger numbness, as well as forearm pain. Pt reports two years ago, she had the same pain in her left arm, was eventually diagnosed with carpal tunnel syndrome, and one year ago underwent a surgical release, which helped eliminate her symptoms. Pt is pretty sure she has carpal tunnel syndrome now in the right, because it feels the same, but she would like to avoid surgery again if possible. Pt reports she has fairly constant numbness in her hand and fingers (mainly index and middle), but then at night she gets pain in her right forearm. Pt also notes worsened pain with heavy lifting. Pt has tried splints at night, but they seemed to make it worse. 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 PT-OP-C Subjective Start: 01/29/20 10:28 Freq: Status: Active Protocol: Document 02/14/20 14:35 SP (Rec: 02/14/20 16:14 SP [id number]) OP-PT Subjective Patient Comments Patient Comments Pt reported wrist, hand forearm pain improving, only getting cramping during some of the exercises over thenar eminance, please with progress making Patient Reported Progress Improving PT-OP-F Manual Assessment Start: 01/29/20 10:28 Freq: Status: Active Protocol: Document 01/29/20 09:45 DCW (Rec: 01/29/20 11:02 DCW [id number]) Manual Assessments Soft Tissue Assessment Soft Tissue Mobility Assessment Increased tone and tenderness to palpation 3/4 - Wincing and withdraw in Wrist Flexors PT-OP-K Range of Motion Start: 01/29/20 10:28 Freq: Status: Active Protocol: Document 01/29/20 09:45 DCW (Rec: 01/29/20 11:02 DCW [id number]) Wrist Goniometric Range of Motion Wrist Right Flexion Active (degrees) 75 Extension Active (degrees) 45 Ulnar Deviation Active (degrees) 28 Radial Deviation Active (degrees) 16 ROM Limitations Wrist Limitations of Range of Motion Soft Tissue Tightness PT-OP-L Special Tests Start: 01/29/20 10:28 Freq: Status: Active Protocol: Document 01/29/20 09:45 DCW (Rec: 01/29/20 11:02 DCW [id number]) Special Tests Wrist/Hand Special Tests Tinel's Sign Test Results Positive Right Reverse Phalen's Test Test Results Positive Right Phalen's Test Test Results Negative PT-OP-M Strength Start: 01/29/20 10:28 Freq: Status: Active Protocol: Document 01/29/20 09:45 DCW (Rec: 01/29/20 11:02 DCW [id number]) Wrist Strength Wrist Manual Muscle Testing Right Flexion (C7) 4+ Good+ Extension (C6) 4+ Good+ Ulnar Deviation 4 Good Radial Deviation 4 Good Hand Canal Boat Operator/Pinch Strength Hand Dominance Hand Dominance Left Hand Strength Right Canal Boat Operator (lbs) 28.3 Comments Three-trial Average (35#, 25#, 25#) Left Canal Boat Operator (lbs) 40 Comments Three-trial Average (45#, 40#, 35#) PT-OP-Q Treatments Start: 01/29/20 10:28 Freq: Status: Active Protocol: Document 02/14/20 14:35 SP (Rec: 02/14/20 16:14 SP [id number]) Therapeutic Exercises Sitting Exercises variety hand ex Equipment Used theraputty, rubber band Comments see hand out in chart. MTP extension Sitting Exercise Name 2-5, 1st abd, ext Resistance TB #1 Reps/Minutes x10 each Comments cued not hyperextending DIP, IP scap retraction w/ ER TB Side bilateral Resistance Tb x1 Reps/Minutes 5 sec hold x10 Comments cued scap retract/depression, upright sit posture theraputty Sitting Exercise Name fist, individual finger flexion 1-4, 5th thumb print and flexion dig Side right Equipment Used forearm rested on table Reps/Minutes x5 reps each Comments see hand outs 1 Sitting Exercise Name Wrist Flexor stretch Side right Equipment Used forearm rested on table Reps/Minutes 15 sec x5 sec hold Standing Exercises resisted shld ext Side bilateral Equipment Used TB #1, loops for hands due to decreased yarn mercerizer operator and thumb cramping Reps/Minutes 2x10 Comments cued upright posture, scap stab resisted rows Side bilateral Equipment Used TB #1, loops for hands due to decreased yarn mercerizer operator and thumb cramping Reps/Minutes 2x10 Comments cued upright posture, scap stab Manual Therapy Treatment Soft Tissue Mobilization forearm flexors, SFT, MTPS Mobilization Type Cross-Friction,Myofascial Release Intensity/Depth Moderate Body Position Sitting Comments also instruction self MWM, primarily 1MTP Joint Mobilizations R Joint carpals, MTP, distal ulna/ radius Direction PA, AP, rotation Grade II Body Position Sitting Comments pain free range PT-OP-R Modalities Start: 01/29/20 10:28 Freq: Status: Active Protocol: Document 02/03/20 13:51 SP (Rec: 02/03/20 16:00 SP [id number]) Hot Pack/Cold Pack Treatment CP Location R forearm Patient Position Sitting Treatment Duration (minutes) 8 Patient Tolerance Good PT-OP-T Assessment and Plan Start: 01/29/20 09:36 Freq: Status: Active Protocol: Document 02/14/20 14:35 SP (Rec: 02/14/20 16:14 SP [id number]) Physical Therapy Assessment Rehab Potential Rehabilitation Potential Good Evaluation Complexity Number of Personal Factors/Comorbidities 3 or More Number of Body Systems Impaired 3 Clinical Presentation at Evaluation Evolving Impairments Impairments Functional Activities,Pain,ROM ,Soft Tissue Mobility,Strength ,Tone Goals Four Impairment Arm pain/hand numbness limits sleep at night Assisted Goal (LTG) Pt to report no missed sleep due to arm pain and hand numbness for four days out of a week. LTG Duration 03/30/20 Three Impairment Forearm tightness limits R Wrist AROM extension Assisted Goal (LTG) Pt to increase AROM extension to 60? to demonstrate decreased tone in right wrist flexors LTG Duration 03/30/20 Two Impairment Pt displays right hand yarn mercerizer operator weakness Assisted Goal (LTG) Pt to increase yarn mercerizer operator strength of right hand to at least 35# LTG Duration 03/30/20 One Impairment Pt does not have an appropriate home exercise program Short Term Goal (STG) Pt to be independent and compliant with an appropriate HEP STG Duration 02/28/20 Assessment Summary Assessment Pt reported thenar eminence cramping during theraputty modifies reps tollerance because does help gripping, instructed self MWM pin finger movement with improvement in decrease tension. Reviewed HEP , decrease occaional cuing required for set up and proepr form. Pt reported tired end of tx but and thenarm eminance sore but doing better. Next tx add therabar pron/supin, wrist stretching, review continue shd ER and nerve glide if needed. Physical Therapy Plan Frequency and Duration Frequency of Treatment 2x/Week Duration of Treatment Two months Plan of Care Start Date 01/29/20 Plan of Care End Date 03/30/20 Therapeutic Interventions Therapeutic Interventions Home Exercise Program,Manual Therapy,Patient/Caregiver Education,Self-Care/Home Management,Soft Tissue Mobilization,Therapeutic Activities,Therapeutic Exercises Modalities Cold Pack/Ice Massage,Electric Stimulation,Hot Packs, Ultrasound Next Visit Focus/Plan Next Note Type Treatment Note Next Visit Plan Assess response to last tx: manual, AROM and TB strengthening: theraputty, rubber band flex/ ext fingers, scap stab added. Next tx continue per POC and see assessment suggestions: STM, Flexibility/stretching, yarn mercerizer operator strengthening, finger extensor strengthening, US to decrease any edema/ inflammation
--- NOTE | 2020-02-21 17:41 | PT.OTN ---
Current Diagnoses Carpal tunnel syndrome, unspecified upper limb (02/21/20) Carpal tunnel syndrome, right upper limb (02/21/20) Pain in right wrist (02/21/20) Stiffness of right wrist, not elsewhere classified (02/21/20) Physical Therapy Treatment Note PT-OP-A Visit Information Start: 01/29/20 10:28 Freq: Status: Active Protocol: Document 02/21/20 09:49 LRN (Rec: 02/21/20 11:32 LRN [id number]) Out-Patient Physical Therapy Visit Information Visit Information Visit Type Treatment Note Visit Start Time 10:41 Visit Stop Time 11:32 Total Visit Minutes 51 Visit Number 6 Evaluation Information Evaluation Date 01/29/20 Precautions Precautions Pt has lupus and hx of blood clots/PE. PT-OP-B Current Condition Start: 01/29/20 10:28 Freq: Status: Active Protocol: Document 01/29/20 09:45 DCW (Rec: 01/29/20 11:02 DCW [id number]) Current Condition History of Current Condition Onset Date one month history Current Complaints Finger/hand numbness, arm pain History of Current Condition Pt is a 24 year old female presenting with a one month history of right hand and finger numbness, as well as forearm pain. Pt reports two years ago, she had the same pain in her left arm, was eventually diagnosed with carpal tunnel syndrome, and one year ago underwent a surgical release, which helped eliminate her symptoms. Pt is pretty sure she has carpal tunnel syndrome now in the right, because it feels the same, but she would like to avoid surgery again if possible. Pt reports she has fairly constant numbness in her hand and fingers (mainly index and middle), but then at night she gets pain in her right forearm. Pt also notes worsened pain with heavy lifting. Pt has tried splints at night, but they seemed to make it worse. 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 States blood clots in lungs, have been on blood thinners a year. PT-OP-F Manual Assessment Start: 01/29/20 10:28 Freq: Status: Active Protocol: Document 01/29/20 09:45 DCW (Rec: 01/29/20 11:02 DCW [id number]) Manual Assessments Soft Tissue Assessment Soft Tissue Mobility Assessment Increased tone and tenderness to palpation 3/4 - Wincing and withdraw in Wrist Flexors PT-OP-K Range of Motion Start: 01/29/20 10:28 Freq: Status: Active Protocol: Document 01/29/20 09:45 DCW (Rec: 01/29/20 11:02 DCW [id number]) Wrist Goniometric Range of Motion Wrist Right Flexion Active (degrees) 75 Extension Active (degrees) 45 Ulnar Deviation Active (degrees) 28 Radial Deviation Active (degrees) 16 ROM Limitations Wrist Limitations of Range of Motion Soft Tissue Tightness PT-OP-L Special Tests Start: 01/29/20 10:28 Freq: Status: Active Protocol: Document 01/29/20 09:45 DCW (Rec: 01/29/20 11:02 DCW [id number]) Special Tests Wrist/Hand Special Tests Tinel's Sign Test Results Positive Right Reverse Phalen's Test Test Results Positive Right Phalen's Test Test Results Negative PT-OP-M Strength Start: 01/29/20 10:28 Freq: Status: Active Protocol: Document 01/29/20 09:45 DCW (Rec: 01/29/20 11:02 DCW [id number]) Wrist Strength Wrist Manual Muscle Testing Right Flexion (C7) 4+ Good+ Extension (C6) 4+ Good+ Ulnar Deviation 4 Good Radial Deviation 4 Good Hand Biodiesel Division Manager/Pinch Strength Hand Dominance Hand Dominance Left Hand Strength Right Biodiesel Division Manager (lbs) 28.3 Comments Three-trial Average (35#, 25#, 25#) Left Biodiesel Division Manager (lbs) 40 Comments Three-trial Average (45#, 40#, 35#) PT-OP-Q Treatments Start: 01/29/20 10:28 Freq: Status: Active Protocol: Document 02/21/20 09:49 LRN (Rec: 02/21/20 11:32 LRN [id number]) Therapeutic Exercises Sitting Exercises Tendon gliding Exercises Sitting Exercise Name Table top, PIP flex/ext Intrinsics, Hook>Full fist, Hand intrinsics Side right Reps/Minutes 10' theraputty Sitting Exercise Name fist, individual finger flexion 1-4, 5th thumb print and flexion dig Side right Equipment Used forearm rested on table Reps/Minutes x5 reps each Manual Therapy Treatment Soft Tissue Mobilization forearm flexors, SFT, MTPS Mobilization Type Cross-Friction,Myofascial Release Intensity/Depth Moderate Body Position Sitting Joint Mobilizations R Joint carpals, MTP, distal ulna/ radius Direction PA, AP, rotation Grade II Body Position Sitting Comments pain free range PT-OP-R Modalities Start: 01/29/20 10:28 Freq: Status: Active Protocol: Document 02/21/20 09:49 LRN (Rec: 02/21/20 11:32 [facility] [id number]) Ultrasound Therapy Treatment R Thenar [place] Treatment Duration (minutes) 4 Patient Position Sitting Applicator Size (cm2) 2 Mode Setting Pulsed Duty Cycle 50% Intensity Setting (w/cm2) 1.0 Carpel tunnel Treatment Duration (minutes) 4 Patient Position Sitting Applicator Size (cm2) 2 Frequency Setting (mHz) 3 Mode Setting Pulsed Duty Cycle 50% Intensity Setting (w/cm2) 1.0 PT-OP-T Assessment and Plan Start: 01/29/20 09:36 Freq: Status: Active Protocol: Document 02/21/20 09:49 LRN (Rec: 02/21/20 11:32 [facility] [id number]) Physical Therapy Assessment Assessment Summary Assessment Pt is having thumb cramping with theraputty and finger strengthening exercises. Today thenar eminence cramping with strengthening and stiffness with tendon glides. After last session, too much ex caused pain at end that lasted 20-30' after getting home. + response to ultrasound. Physical Therapy Plan Frequency and Duration Frequency of Treatment 2x/Week Duration of Treatment Two months Plan of Care Start Date 01/29/20 Plan of Care End Date 03/30/20 Next Visit Focus/Plan Next Note Type Treatment Note Next Visit Plan Assess response to tendon glides: manual, AROM and TB strengthening: theraputty, rubber band flex/ ext fingers, scap stab added. Next tx continue per POC and see assessment suggestions: STM, Flexibility/stretching, gas main fitter strengthening, finger extensor strengthening, US to decrease any edema/ inflammation
--- NOTE | 2020-02-24 12:32 | PT.OTN ---
Current Diagnoses Carpal tunnel syndrome, unspecified upper limb (02/24/20) Carpal tunnel syndrome, right upper limb (02/24/20) Pain in right wrist (02/24/20) Stiffness of right wrist, not elsewhere classified (02/24/20) Physical Therapy Treatment Note PT-OP-A Visit Information Start: 01/29/20 10:28 Freq: Status: Active Protocol: Document 02/24/20 11:24 LRN (Rec: 02/24/20 12:29 LRN [id number]) Out-Patient Physical Therapy Visit Information Visit Information Visit Type Treatment Note Visit Start Time 11:24 Visit Stop Time 12:08 Total Visit Minutes 44 Visit Number 7 PT-OP-B Current Condition Start: 01/29/20 10:28 Freq: Status: Active Protocol: Document 01/29/20 09:45 DCW (Rec: 01/29/20 11:02 DCW [id number]) Current Condition History of Current Condition Onset Date one month history Current Complaints Finger/hand numbness, arm pain History of Current Condition Pt is a 24 year old female presenting with a one month history of right hand and finger numbness, as well as forearm pain. Pt reports two years ago, she had the same pain in her left arm, was eventually diagnosed with carpal tunnel syndrome, and one year ago underwent a surgical release, which helped eliminate her symptoms. Pt is pretty sure she has carpal tunnel syndrome now in the right, because it feels the same, but she would like to avoid surgery again if possible. Pt reports she has fairly constant numbness in her hand and fingers (mainly index and middle), but then at night she gets pain in her right forearm. Pt also notes worsened pain with heavy lifting. Pt has tried splints at night, but they seemed to make it worse. 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 Currently no pain. States she was able to do ex's longer and that on getting home her hand wasn't hurting like usual. PT-OP-F Manual Assessment Start: 01/29/20 10:28 Freq: Status: Active Protocol: Document 01/29/20 09:45 DCW (Rec: 01/29/20 11:02 DCW [id number]) Manual Assessments Soft Tissue Assessment Soft Tissue Mobility Assessment Increased tone and tenderness to palpation 3/4 - Wincing and withdraw in Wrist Flexors PT-OP-K Range of Motion Start: 01/29/20 10:28 Freq: Status: Active Protocol: Document 01/29/20 09:45 DCW (Rec: 01/29/20 11:02 DCW [id number]) Wrist Goniometric Range of Motion Wrist Right Flexion Active (degrees) 75 Extension Active (degrees) 45 Ulnar Deviation Active (degrees) 28 Radial Deviation Active (degrees) 16 ROM Limitations Wrist Limitations of Range of Motion Soft Tissue Tightness PT-OP-L Special Tests Start: 01/29/20 10:28 Freq: Status: Active Protocol: Document 01/29/20 09:45 DCW (Rec: 01/29/20 11:02 DCW [id number]) Special Tests Wrist/Hand Special Tests Tinel's Sign Test Results Positive Right Reverse Phalen's Test Test Results Positive Right Phalen's Test Test Results Negative PT-OP-M Strength Start: 01/29/20 10:28 Freq: Status: Active Protocol: Document 01/29/20 09:45 DCW (Rec: 01/29/20 11:02 DCW [id number]) Wrist Strength Wrist Manual Muscle Testing Right Flexion (C7) 4+ Good+ Extension (C6) 4+ Good+ Ulnar Deviation 4 Good Radial Deviation 4 Good Hand Network Systems Operator/Pinch Strength Hand Dominance Hand Dominance Left Hand Strength Right Network Systems Operator (lbs) 28.3 Comments Three-trial Average (35#, 25#, 25#) Left Network Systems Operator (lbs) 40 Comments Three-trial Average (45#, 40#, 35#) PT-OP-Q Treatments Start: 01/29/20 10:28 Freq: Status: Active Protocol: Document 02/24/20 11:24 LRN (Rec: 02/24/20 12:29 LRN [id number]) Therapeutic Exercises Sitting Exercises Finger Sitting Exercise Name Digits 1-5 Ext individually Reps/Minutes 3' Finger AD Sitting Exercise Name Digits 2-5 AD individually Reps/Minutes 5' Finger AB Sitting Exercise Name Digits 2-5 AB individually Side right Reps/Minutes 5' Finger opposition Sitting Exercise Name Finger Birgit opposition Reps/Minutes 8' Comments Extra time to teach proper movement, and with use if Cold pack for thumb MTP extension Sitting Exercise Name 2-5, 1st abd, ext Resistance TB #1 Reps/Minutes 3' Comments cued not hyperextending DIP, IP theraputty Sitting Exercise Name fist, individual finger flexion 1-4, 5th thumb print and flexion dig Side right Equipment Used forearm rested on table Reps/Minutes x5 reps each Self-Care/Home Management Treatment Education Other Education Educated pt edema management: using cold water in a bucket of sink to put R hand in for ex of fingers. Briefly discussed wrist support to prevent positioning of hand during the night that might be causing increased swelling in the R thumb. Discussed POC with addition of 24 additional PT units authorized by insurance. Activities Self-Care/Home Management Activities Pt I/S to use hand in cold water for no more than 5' but to limit if hand gets too cold or pain. Discussed briefly possile need for hot/cold treatment for edema management . PT-OP-R Modalities Start: 01/29/20 10:28 Freq: Status: Active Protocol: Document 02/24/20 11:24 LRN (Rec: 02/24/20 12:29 LRN [id number]) Ultrasound Therapy Treatment Forearm Treatment Duration (minutes) 3 Patient Position Sitting Applicator Size (cm2) 2 Frequency Setting (mHz) 1 Mode Setting Pulsed Duty Cycle 50% Intensity Setting (w/cm2) 1.0 R Thenar [place] Treatment Duration (minutes) 3 Patient Position Sitting Applicator Size (cm2) 2 Frequency Setting (mHz) 1 Mode Setting Pulsed Duty Cycle 50% Intensity Setting (w/cm2) 1.0 Carpel tunnel Treatment Duration (minutes) 2 Patient Position Sitting Applicator Size (cm2) 2 Frequency Setting (mHz) 3 Mode Setting Pulsed Duty Cycle 50% Intensity Setting (w/cm2) 1.0 PT-OP-T Assessment and Plan Start: 01/29/20 09:36 Freq: Status: Active Protocol: Document 02/24/20 11:24 LRN (Rec: 02/24/20 12:29 LRN [id number]) Physical Therapy Assessment Progress Towards Goals Progress Comments Decrease stiffness with R thumb opposition to 5th digit. Assessment Summary Assessment + response to US. Pt would benefit from treatments for US and possibly massage with review and ex as needed. Tendon glides caused fingers to cramp. Area of thenar eminence appears swollen. Pt initially had difficulty performing opposition in O fashion prior to training. Physical Therapy Plan Frequency and Duration Frequency of Treatment 2x/Week Duration of Treatment Two months Plan of Care Start Date 01/29/20 Plan of Care End Date 03/30/20 Next Visit Focus/Plan Next Note Type Treatment Note Next Visit Plan Review tendon glides: manual, AROM and TB strengthening: theraputty, rubber band flex/ ext fingers, scap stab added. Next tx continue per POC and see assessment suggestions: STM, Flexibility/stretching, trimmer press clippings strengthening, finger extensor strengthening, US to decrease any edema/ inflammation
--- NOTE | 2020-02-28 12:30 | PT.OTN ---
Current Diagnoses Carpal tunnel syndrome, unspecified upper limb (02/28/20) Carpal tunnel syndrome, right upper limb (02/28/20) Pain in right wrist (02/28/20) Stiffness of right wrist, not elsewhere classified (02/28/20) Physical Therapy Treatment Note PT-OP-A Visit Information Start: 01/29/20 10:28 Freq: Status: Active Protocol: Document 02/28/20 11:21 LRN (Rec: 02/28/20 12:30 LRN [id number]) Out-Patient Physical Therapy Visit Information Visit Information Visit Type Treatment Note Visit Start Time 11:21 Visit Stop Time 12:07 Total Visit Minutes 46 Visit Number 8 Evaluation Information Evaluation Date 01/29/20 Precautions Precautions Pt has lupus and hx of blood clots/PE. PT-OP-B Current Condition Start: 01/29/20 10:28 Freq: Status: Active Protocol: Document 01/29/20 09:45 DCW (Rec: 01/29/20 11:02 DCW [id number]) Current Condition History of Current Condition Onset Date one month history Current Complaints Finger/hand numbness, arm pain History of Current Condition Pt is a 24 year old female presenting with a one month history of right hand and finger numbness, as well as forearm pain. Pt reports two years ago, she had the same pain in her left arm, was eventually diagnosed with carpal tunnel syndrome, and one year ago underwent a surgical release, which helped eliminate her symptoms. Pt is pretty sure she has carpal tunnel syndrome now in the right, because it feels the same, but she would like to avoid surgery again if possible. Pt reports she has fairly constant numbness in her hand and fingers (mainly index and middle), but then at night she gets pain in her right forearm. Pt also notes worsened pain with heavy lifting. Pt has tried splints at night, but they seemed to make it worse. 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 PT-OP-C Subjective Start: 01/29/20 10:28 Freq: Status: Active Protocol: Document 02/28/20 11:21 LRN (Rec: 02/28/20 12:30 LRN [id number]) OP-PT Subjective Patient Comments Patient Comments Not going numb at night, occasional tingling, and hurting less during the day most of the time. Not using wrist splint. Today, no symptoms to start. PT-OP-F Manual Assessment Start: 01/29/20 10:28 Freq: Status: Active Protocol: Document 01/29/20 09:45 DCW (Rec: 01/29/20 11:02 DCW [id number]) Manual Assessments Soft Tissue Assessment Soft Tissue Mobility Assessment Increased tone and tenderness to palpation 3/4 - Wincing and withdraw in Wrist Flexors PT-OP-K Range of Motion Start: 01/29/20 10:28 Freq: Status: Active Protocol: Document 01/29/20 09:45 DCW (Rec: 01/29/20 11:02 DCW [id number]) Wrist Goniometric Range of Motion Wrist Right Flexion Active (degrees) 75 Extension Active (degrees) 45 Ulnar Deviation Active (degrees) 28 Radial Deviation Active (degrees) 16 ROM Limitations Wrist Limitations of Range of Motion Soft Tissue Tightness PT-OP-L Special Tests Start: 01/29/20 10:28 Freq: Status: Active Protocol: Document 01/29/20 09:45 DCW (Rec: 01/29/20 11:02 DCW [id number]) Special Tests Wrist/Hand Special Tests Tinel's Sign Test Results Positive Right Reverse Phalen's Test Test Results Positive Right Phalen's Test Test Results Negative PT-OP-M Strength Start: 01/29/20 10:28 Freq: Status: Active Protocol: Document 01/29/20 09:45 DCW (Rec: 01/29/20 11:02 DCW [id number]) Wrist Strength Wrist Manual Muscle Testing Right Flexion (C7) 4+ Good+ Extension (C6) 4+ Good+ Ulnar Deviation 4 Good Radial Deviation 4 Good Hand Mill Beam Fitter/Pinch Strength Hand Dominance Hand Dominance Left Hand Strength Right Mill Beam Fitter (lbs) 28.3 Comments Three-trial Average (35#, 25#, 25#) Left Mill Beam Fitter (lbs) 40 Comments Three-trial Average (45#, 40#, 35#) PT-OP-Q Treatments Start: 01/29/20 10:28 Freq: Status: Active Protocol: Document 02/28/20 11:21 LRN (Rec: 02/28/20 12:30 LRN [id number]) Therapeutic Exercises Sitting Exercises Thumb Ext Sitting Exercise Name Ext at each joint Side right Resistance Rubber band Reps/Minutes 6' Comments Phys assist and cuing needed for proper movement, full motion & no hyperext Finger Sitting Exercise Name Digits 1-5 Ext individually Resistance Rubber band for digits 2,3 Reps/Minutes 15' Tendon gliding Exercises Sitting Exercise Name Table top, PIP flex/ext Intrinsics, Hook>Full fist, Hand intrinsics Side right Reps/Minutes 10' PT-OP-R Modalities Start: 01/29/20 10:28 Freq: Status: Active Protocol: Document 02/28/20 11:21 LRN (Rec: 02/28/20 12:30 LRN [id number]) Ultrasound Therapy Treatment Forearm Treatment Duration (minutes) 5 Patient Position Sitting Applicator Size (cm2) 10 Frequency Setting (mHz) 1 Mode Setting Pulsed Duty Cycle 50% Intensity Setting (w/cm2) 1.2 R Thenar [place] Treatment Duration (minutes) 4 Patient Position Sitting Applicator Size (cm2) 2 Frequency Setting (mHz) 1 Mode Setting Pulsed Duty Cycle 50% Intensity Setting (w/cm2) 1.0 Carpel tunnel Treatment Duration (minutes) 4 Patient Position Sitting Applicator Size (cm2) 2 Frequency Setting (mHz) 3 Mode Setting Pulsed Duty Cycle 50% Intensity Setting (w/cm2) 1.0 PT-OP-T Assessment and Plan Start: 01/29/20 09:36 Freq: Status: Active Protocol: Document 02/28/20 11:21 LRN (Rec: 02/28/20 12:30 LRN [id number]) Physical Therapy Assessment Goals Four Impairment Arm pain/hand numbness limits sleep at night Cloth Piecer Goal (LTG) Pt to report no missed sleep due to arm pain and hand numbness for four days out of a week. (02/28/20: Pt having no numbness, occasional tinging during night) LTG Duration 03/30/20 (02/28/20: Progressing) Three Impairment Forearm tightness limits R Wrist AROM extension Cloth Piecer Goal (LTG) Pt to increase AROM extension to 60? to demonstrate decreased tone in right wrist flexors LTG Duration 03/30/20 Two Impairment Pt displays right hand senior gl accountant weakness Cloth Piecer Goal (LTG) Pt to increase senior gl accountant strength of right hand to at least 35# LTG Duration 03/30/20 One Impairment Pt does not have an appropriate home exercise program Short Term Goal (STG) Pt to be independent and compliant with an appropriate HEP. (02/28/20: Pt has HEP of shoulder, wrist, hand & posture ex's) STG Duration 02/28/20 (02/28/20: Progressing) Progress Towards Goals Progress Comments Report of no nighttime numbness, less tingling and less pain in R arm/hand during the day. Assessment Summary Assessment Pt tends to go into hyper ext of finger joints on ext but is able to control with focus on proper movement. Pt improving, but is scheduled for a L breast surgery in 3 days; therefore a flare up may be expected by the time the pt returns after surgery. Physical Therapy Plan Frequency and Duration Frequency of Treatment 2x/Week Duration of Treatment Two months Plan of Care Start Date 01/29/20 Plan of Care End Date 03/30/20 Next Visit Focus/Plan Next Note Type Treatment Note Next Visit Plan Reassess for 10th note progress. Review HEP for placement on program with reduction of therapy to 1x/ week if pt independent and familiar with ex. (finger tendon glides, TB strengthening: theraputty, rubber band flex, scap stab exs; add elbow strengthening. Continue per POC and see assessment suggestions: STM, Flexibility/stretching, senior gl accountant strengthening, finger extensor strengthening, US to decrease any edema/ inflammation unless biopsy indicates otherwise.
--- NOTE | 2020-03-10 13:46 | PT.OTN ---
Current Diagnoses Carpal tunnel syndrome, unspecified upper limb (03/10/20) Carpal tunnel syndrome, right upper limb (03/10/20) Pain in right wrist (03/10/20) Stiffness of right wrist, not elsewhere classified (03/10/20) Physical Therapy Treatment Note PT-OP-A Visit Information Start: 01/29/20 10:28 Freq: Status: Active Protocol: Document 03/10/20 13:46 DLM (Rec: 03/10/20 15:00 DLM [email or web address]) Out-Patient Physical Therapy Visit Information Visit Information Visit Type Treatment Note Visit Start Time 13:46 Visit Stop Time 14:30 Total Visit Minutes 44 Visit Number 9 Evaluation Information Evaluation Date 01/29/20 Precautions Precautions Pt has lupus and hx of blood clots/PE. PT-OP-B Current Condition Start: 01/29/20 10:28 Freq: Status: Active Protocol: Document 01/29/20 09:45 DCW (Rec: 01/29/20 11:02 DCW [id number]) Current Condition History of Current Condition Onset Date one month history Current Complaints Finger/hand numbness, arm pain History of Current Condition Pt is a 24 year old female presenting with a one month history of right hand and finger numbness, as well as forearm pain. Pt reports two years ago, she had the same pain in her left arm, was eventually diagnosed with carpal tunnel syndrome, and one year ago underwent a surgical release, which helped eliminate her symptoms. Pt is pretty sure she has carpal tunnel syndrome now in the right, because it feels the same, but she would like to avoid surgery again if possible. Pt reports she has fairly constant numbness in her hand and fingers (mainly index and middle), but then at night she gets pain in her right forearm. Pt also notes worsened pain with heavy lifting. Pt has tried splints at night, but they seemed to make it worse. 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 No numbness at night . She reports doing her exercises at home without difficulty. She uses cold water and ice packs to manage pain at home. PT-OP-F Manual Assessment Start: 01/29/20 10:28 Freq: Status: Active Protocol: Document 01/29/20 09:45 DCW (Rec: 01/29/20 11:02 DCW [id number]) Manual Assessments Soft Tissue Assessment Soft Tissue Mobility Assessment Increased tone and tenderness to palpation 3/4 - Wincing and withdraw in Wrist Flexors PT-OP-K Range of Motion Start: 01/29/20 10:28 Freq: Status: Active Protocol: Document 01/29/20 09:45 DCW (Rec: 01/29/20 11:02 DCW [id number]) Wrist Goniometric Range of Motion Wrist Right Flexion Active (degrees) 75 Extension Active (degrees) 45 Ulnar Deviation Active (degrees) 28 Radial Deviation Active (degrees) 16 ROM Limitations Wrist Limitations of Range of Motion Soft Tissue Tightness PT-OP-L Special Tests Start: 01/29/20 10:28 Freq: Status: Active Protocol: Document 01/29/20 09:45 DCW (Rec: 01/29/20 11:02 DCW [id number]) Special Tests Wrist/Hand Special Tests Tinel's Sign Test Results Positive Right Reverse Phalen's Test Test Results Positive Right Phalen's Test Test Results Negative PT-OP-M Strength Start: 01/29/20 10:28 Freq: Status: Active Protocol: Document 01/29/20 09:45 DCW (Rec: 01/29/20 11:02 DCW [id number]) Wrist Strength Wrist Manual Muscle Testing Right Flexion (C7) 4+ Good+ Extension (C6) 4+ Good+ Ulnar Deviation 4 Good Radial Deviation 4 Good Hand On Car Supervisor/Pinch Strength Hand Dominance Hand Dominance Left Hand Strength Right On Car Supervisor (lbs) 28.3 Comments Three-trial Average (35#, 25#, 25#) Left On Car Supervisor (lbs) 40 Comments Three-trial Average (45#, 40#, 35#) PT-OP-Q Treatments Start: 01/29/20 10:28 Freq: Status: Active Protocol: Document 03/10/20 13:46 DLM (Rec: 03/10/20 15:00 DL [email or web address]) Therapeutic Exercises Sitting Exercises Thumb Ext Sitting Exercise Name Ext at each joint Side right Resistance Rubber band Reps/Minutes 10 reps Comments Phys assist and cuing needed for proper movement, full motion & no hyperext Finger Sitting Exercise Name Digits 1-5 Ext individually Resistance Rubber band for digits 2,3 Reps/Minutes 10 reps Finger AB Side right Resistance rubber band Reps/Minutes 10 reps Manual Therapy Treatment Soft Tissue Mobilization forearm flexors, SFT, MTPS Body Location right forearm Mobilization Type Cross-Friction,Rolling, Strumming,Sustained Pressure Intensity/Depth Moderate Body Position Sitting Comments 20 min PT-OP-R Modalities Start: 01/29/20 10:28 Freq: Status: Active Protocol: Document 03/10/20 13:46 DLM (Rec: 03/10/20 15:00 [facility] [email or web address]) Ultrasound Therapy Treatment Forearm Treatment Duration (minutes) 4 Patient Position Sitting Applicator Size (cm2) 10 Frequency Setting (mHz) 1 Mode Setting Pulsed Duty Cycle 50% Intensity Setting (w/cm2) 1.2 R Thenar [place] Treatment Duration (minutes) 3 Patient Position Sitting Applicator Size (cm2) 2 Frequency Setting (mHz) 1 Mode Setting Pulsed Duty Cycle 50% Intensity Setting (w/cm2) 1.0 Carpel tunnel Treatment Duration (minutes) 3 Patient Position Sitting Applicator Size (cm2) 2 Frequency Setting (mHz) 3 Mode Setting Pulsed Duty Cycle 50% Intensity Setting (w/cm2) 1.0 PT-OP-T Assessment and Plan Start: 01/29/20 09:36 Freq: Status: Active Protocol: Document 03/10/20 13:46 DLM (Rec: 03/10/20 15:00 [facility] [email or web address]) Physical Therapy Assessment Goals Four Impairment Arm pain/hand numbness limits sleep at night Specimen Technician Goal (LTG) Pt to report no missed sleep due to arm pain and hand numbness for four days out of a week. (02/28/20: Pt having no numbness, occasional tinging during night) LTG Duration 03/30/20 (02/28/20: Progressing) Three Impairment Forearm tightness limits R Wrist AROM extension Alf Goal (LTG) Pt to increase AROM extension to 60? to demonstrate decreased tone in right wrist flexors LTG Duration 03/30/20 Two Impairment Pt displays right hand vacuum truck driver weakness Specimen Technician Goal (LTG) Pt to increase vacuum truck driver strength of right hand to at least 35# LTG Duration 03/30/20 One Impairment Pt does not have an appropriate home exercise program Short Term Goal (STG) Pt to be independent and compliant with an appropriate HEP. (02/28/20: Pt has HEP of shoulder, wrist, hand & posture ex's) STG Duration 02/28/20 (02/28/20: Progressing) Progress Towards Goals Progress Towards Goals Progressing Toward Goals Assessment Summary Assessment She tolerated treatment session well. She reports improved symptoms especially at night. She is not wearing splint. Improved ability to do finger ext exercise with reps . Continues to have soft tissue tightness right wrist flexors. She feels the US helps. Physical Therapy Plan Frequency and Duration Frequency of Treatment 2x/Week Duration of Treatment Two months Plan of Care Start Date 01/29/20 Plan of Care End Date 03/30/20 Therapeutic Interventions Therapeutic Interventions Home Exercise Program,Manual Therapy,Patient/Caregiver Education,Self-Care/Home Management,Soft Tissue Mobilization,Therapeutic Activities,Therapeutic Exercises Modalities Cold Pack/Ice Massage,Electric Stimulation,Hot Packs, Ultrasound Next Visit Focus/Plan Next Note Type Progress Note Next Visit Plan Reassess for 10th note progress. Review HEP for placement on program with reduction of therapy to 1x/ week if pt independent and familiar with ex. (finger tendon glides, TB strengthening: theraputty, rubber band flex, scap stab exs; add elbow strengthening. Continue per POC and see assessment suggestions: STM, Flexibility/stretching, vacuum truck driver strengthening, finger extensor strengthening, US to decrease any edema/ inflammation unless biopsy indicates otherwise.
--- NOTE | 2020-03-13 14:45 | PT-OP ANOTE ---
Pt did not show for today's appt, called and stated was getting ready to go out of town for the weekend and forgot. Reminded of next appt on 03/16/20 with Bhavana MUNIZ with confirmation will be attending.
--- NOTE | 2020-03-16 13:11 | PT.OTN ---
Current Diagnoses Carpal tunnel syndrome, unspecified upper limb (03/16/20) Carpal tunnel syndrome, right upper limb (03/16/20) Pain in right wrist (03/16/20) Stiffness of right wrist, not elsewhere classified (03/16/20) Physical Therapy Treatment Note PT-OP-A Visit Information Start: 01/29/20 10:28 Freq: Status: Active Protocol: Document 03/16/20 13:00 MA (Rec: 03/16/20 13:11 MA [email or web address]) Out-Patient Physical Therapy Visit Information Visit Information Visit Type Treatment Note Visit Start Time 12:00 Visit Stop Time 12:45 Total Visit Minutes 45 Visit Number 10 Number of PROFESSOR OF GRAPHIC DESIGN Visits 1 PT-OP-B Current Condition Start: 01/29/20 10:28 Freq: Status: Active Protocol: Document 01/29/20 09:45 DCW (Rec: 01/29/20 11:02 DCW [id number]) Current Condition History of Current Condition Onset Date one month history Current Complaints Finger/hand numbness, arm pain History of Current Condition Pt is a 24 year old female presenting with a one month history of right hand and finger numbness, as well as forearm pain. Pt reports two years ago, she had the same pain in her left arm, was eventually diagnosed with carpal tunnel syndrome, and one year ago underwent a surgical release, which helped eliminate her symptoms. Pt is pretty sure she has carpal tunnel syndrome now in the right, because it feels the same, but she would like to avoid surgery again if possible. Pt reports she has fairly constant numbness in her hand and fingers (mainly index and middle), but then at night she gets pain in her right forearm. Pt also notes worsened pain with heavy lifting. Pt has tried splints at night, but they seemed to make it worse. 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 Pt states she has been having less pain at nigth and throughout day. PT-OP-F Manual Assessment Start: 01/29/20 10:28 Freq: Status: Active Protocol: Document 01/29/20 09:45 DCW (Rec: 01/29/20 11:02 DCW [id number]) Manual Assessments Soft Tissue Assessment Soft Tissue Mobility Assessment Increased tone and tenderness to palpation 3/4 - Wincing and withdraw in Wrist Flexors PT-OP-K Range of Motion Start: 01/29/20 10:28 Freq: Status: Active Protocol: Document 01/29/20 09:45 DCW (Rec: 01/29/20 11:02 DCW [id number]) Wrist Goniometric Range of Motion Wrist Right Flexion Active (degrees) 75 Extension Active (degrees) 45 Ulnar Deviation Active (degrees) 28 Radial Deviation Active (degrees) 16 ROM Limitations Wrist Limitations of Range of Motion Soft Tissue Tightness PT-OP-L Special Tests Start: 01/29/20 10:28 Freq: Status: Active Protocol: Document 01/29/20 09:45 DCW (Rec: 01/29/20 11:02 DCW [id number]) Special Tests Wrist/Hand Special Tests Tinel's Sign Test Results Positive Right Reverse Phalen's Test Test Results Positive Right Phalen's Test Test Results Negative PT-OP-M Strength Start: 01/29/20 10:28 Freq: Status: Active Protocol: Document 01/29/20 09:45 DCW (Rec: 01/29/20 11:02 DCW [id number]) Wrist Strength Wrist Manual Muscle Testing Right Flexion (C7) 4+ Good+ Extension (C6) 4+ Good+ Ulnar Deviation 4 Good Radial Deviation 4 Good Hand Rn Liaison/Pinch Strength Hand Dominance Hand Dominance Left Hand Strength Right Rn Liaison (lbs) 28.3 Comments Three-trial Average (35#, 25#, 25#) Left Rn Liaison (lbs) 40 Comments Three-trial Average (45#, 40#, 35#) PT-OP-Q Treatments Start: 01/29/20 10:28 Freq: Status: Active Protocol: Document 03/16/20 13:00 MA (Rec: 03/16/20 13:11 MA [email or web address]) Therapeutic Exercises Sitting Exercises Bicep Curl Equipment Used 3# Reps/Minutes 2x10 Comments attempted with 5# but pt stated it was too heavy Thumb Ext Sitting Exercise Name Ext at each joint Side right Resistance Rubber band Reps/Minutes 10 reps Comments Phys assist and cuing needed for proper movement, full motion & no hyperext Finger Sitting Exercise Name Digits 1-5 Flex/Ext individually Reps/Minutes 10 reps Finger AB Side right Resistance orange putty Reps/Minutes 10 reps Tendon gliding Exercises Sitting Exercise Name Table top, PIP flex/ext Intrinsics, Hook>Full fist, Hand intrinsics Side right Reps/Minutes 10' theraputty Sitting Exercise Name Lumbricals, extension, putty squeezes Side right Equipment Used orange putty PT-OP-R Modalities Start: 01/29/20 10:28 Freq: Status: Active Protocol: Document 03/16/20 13:00 MA (Rec: 03/16/20 13:11 MA [email or web address]) Ultrasound Therapy Treatment Forearm Treatment Duration (minutes) 4 Patient Position Sitting Applicator Size (cm2) 10 Frequency Setting (mHz) 1 Mode Setting Pulsed Duty Cycle 50% Intensity Setting (w/cm2) 1.2 R Thenar [place] Treatment Duration (minutes) 3 Patient Position Sitting Applicator Size (cm2) 2 Frequency Setting (mHz) 1 Mode Setting Pulsed Duty Cycle 50% Intensity Setting (w/cm2) 1.0 Carpel tunnel Treatment Duration (minutes) 3 Patient Position Sitting Applicator Size (cm2) 2 Frequency Setting (mHz) 3 Mode Setting Pulsed Duty Cycle 50% Intensity Setting (w/cm2) 1.0 PT-OP-T Assessment and Plan Start: 01/29/20 09:36 Freq: Status: Active Protocol: Document 03/16/20 13:00 MA (Rec: 03/16/20 13:11 MA [email or web address]) Physical Therapy Assessment Goals Four Impairment Arm pain/hand numbness limits sleep at night Laboratory Tester Goal (LTG) Pt to report no missed sleep due to arm pain and hand numbness for four days out of a week. (02/28/20: Pt having no numbness, occasional tinging during night) LTG Duration 03/30/20 (02/28/20: Progressing) Three Impairment Forearm tightness limits R Wrist AROM extension [place] Goal (LTG) Pt to increase AROM extension to 60? to demonstrate decreased tone in right wrist flexors LTG Duration 03/30/20 Two Impairment Pt displays right hand log haul chain feeder weakness Laboratory Tester Goal (LTG) Pt to increase log haul chain feeder strength of right hand to at least 35# LTG Duration 03/30/20 One Impairment Pt does not have an appropriate home exercise program Short Term Goal (STG) Pt to be independent and compliant with an appropriate HEP. (02/28/20: Pt has HEP of shoulder, wrist, hand & posture ex's) STG Duration 02/28/20 (02/28/20: Progressing) Assessment Summary Assessment Pt feels her strength is improving and performed exercises well with orange putty instead of yellow today. Pt did have cramping of her R thumb throughout all flexion exercises. Added weighted bicep curl and wrist flexion exercises using 3lb weight Physical Therapy Plan Frequency and Duration Frequency of Treatment 2x/Week Duration of Treatment Two months Plan of Care Start Date 01/29/20 Plan of Care End Date 03/30/20 Next Visit Focus/Plan Next Note Type Treatment Note Next Visit Plan Review HEP for placement on program with reduction of therapy to 1x/week if pt independent and familiar with ex. (finger tendon glides, TB strengthening: theraputty, rubber band flex, scap stab exs; Continue per POC and see assessment suggestions: STM, Flexibility/stretching, log haul chain feeder strengthening, finger extensor strengthening, US to decrease any edema/ inflammation
--- NOTE | 2020-03-23 12:55 | PT.OTN ---
Current Diagnoses Carpal tunnel syndrome, unspecified upper limb (03/23/20) Carpal tunnel syndrome, right upper limb (03/23/20) Pain in right wrist (03/23/20) Stiffness of right wrist, not elsewhere classified (03/23/20) Physical Therapy Treatment Note PT-OP-A Visit Information Start: 01/29/20 10:28 Freq: Status: Active Protocol: Document 03/23/20 12:07 MA (Rec: 03/23/20 12:55 MA [id number]) Out-Patient Physical Therapy Visit Information Visit Information Visit Type Treatment Note Visit Start Time 12:00 Visit Stop Time 12:40 Total Visit Minutes 40 Visit Number 11 Number of CRITICAL CARE NURSE Visits 2 PT-OP-B Current Condition Start: 01/29/20 10:28 Freq: Status: Active Protocol: Document 01/29/20 09:45 DCW (Rec: 01/29/20 11:02 DCW [id number]) Current Condition History of Current Condition Onset Date one month history Current Complaints Finger/hand numbness, arm pain History of Current Condition Pt is a 24 year old female presenting with a one month history of right hand and finger numbness, as well as forearm pain. Pt reports two years ago, she had the same pain in her left arm, was eventually diagnosed with carpal tunnel syndrome, and one year ago underwent a surgical release, which helped eliminate her symptoms. Pt is pretty sure she has carpal tunnel syndrome now in the right, because it feels the same, but she would like to avoid surgery again if possible. Pt reports she has fairly constant numbness in her hand and fingers (mainly index and middle), but then at night she gets pain in her right forearm. Pt also notes worsened pain with heavy lifting. Pt has tried splints at night, but they seemed to make it worse. 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 PT-OP-C Subjective Start: 01/29/20 10:28 Freq: Status: Active Protocol: Document 03/23/20 12:07 MA (Rec: 03/23/20 12:55 MA [id number]) OP-PT Subjective Patient Comments Patient Comments Pt has had no pain recently in the R wrist and has been having less numbness PT-OP-F Manual Assessment Start: 01/29/20 10:28 Freq: Status: Active Protocol: Document 01/29/20 09:45 DCW (Rec: 01/29/20 11:02 DCW [id number]) Manual Assessments Soft Tissue Assessment Soft Tissue Mobility Assessment Increased tone and tenderness to palpation 3/4 - Wincing and withdraw in Wrist Flexors PT-OP-K Range of Motion Start: 01/29/20 10:28 Freq: Status: Active Protocol: Document 01/29/20 09:45 DCW (Rec: 01/29/20 11:02 DCW [id number]) Wrist Goniometric Range of Motion Wrist Right Flexion Active (degrees) 75 Extension Active (degrees) 45 Ulnar Deviation Active (degrees) 28 Radial Deviation Active (degrees) 16 ROM Limitations Wrist Limitations of Range of Motion Soft Tissue Tightness PT-OP-L Special Tests Start: 01/29/20 10:28 Freq: Status: Active Protocol: Document 01/29/20 09:45 DCW (Rec: 01/29/20 11:02 DCW [id number]) Special Tests Wrist/Hand Special Tests Tinel's Sign Test Results Positive Right Reverse Phalen's Test Test Results Positive Right Phalen's Test Test Results Negative PT-OP-M Strength Start: 01/29/20 10:28 Freq: Status: Active Protocol: Document 01/29/20 09:45 DCW (Rec: 01/29/20 11:02 DCW [id number]) Wrist Strength Wrist Manual Muscle Testing Right Flexion (C7) 4+ Good+ Extension (C6) 4+ Good+ Ulnar Deviation 4 Good Radial Deviation 4 Good Hand Agricultural Adviser/Pinch Strength Hand Dominance Hand Dominance Left Hand Strength Right Agricultural Adviser (lbs) 28.3 Comments Three-trial Average (35#, 25#, 25#) Left Agricultural Adviser (lbs) 40 Comments Three-trial Average (45#, 40#, 35#) PT-OP-Q Treatments Start: 01/29/20 10:28 Freq: Status: Active Protocol: Document 03/23/20 12:07 MA (Rec: 03/23/20 12:55 MA [id number]) Therapeutic Exercises Sitting Exercises Thumb Ext Sitting Exercise Name Ext at each joint Side right Resistance Rubber band Reps/Minutes 10 reps Comments Phys assist and cuing needed for proper movement, full motion & no hyperext Finger Sitting Exercise Name Digits 1-5 Flex/Ext individually Side right Resistance Rubber band digits 2,3 Reps/Minutes 10 reps Finger AB Side right Resistance rubber band Reps/Minutes 10 reps wrist TB e Sitting Exercise Name extension, radial deviation, flexion Side right Equipment Used TB#2 Reps/Minutes 10 reps theraputty Sitting Exercise Name Lumbricals, extension, putty squeezes Side right Equipment Used orange putty PT-OP-R Modalities Start: 01/29/20 10:28 Freq: Status: Active Protocol: Document 03/23/20 12:07 MA (Rec: 03/23/20 12:55 MA [id number]) Ultrasound Therapy Treatment Forearm Treatment Duration (minutes) 3 Patient Position Sitting Applicator Size (cm2) 10 Frequency Setting (mHz) 1 Mode Setting Pulsed Duty Cycle 50% Intensity Setting (w/cm2) 1.2 R Thenar [place] Treatment Duration (minutes) 3 Patient Position Sitting Applicator Size (cm2) 2 Frequency Setting (mHz) 1 Mode Setting Pulsed Duty Cycle 50% Intensity Setting (w/cm2) 1.0 Carpel tunnel Treatment Duration (minutes) 3 Patient Position Sitting Applicator Size (cm2) 2 Frequency Setting (mHz) 3 Mode Setting Pulsed Duty Cycle 50% Intensity Setting (w/cm2) 1.0 PT-OP-T Assessment and Plan Start: 01/29/20 09:36 Freq: Status: Active Protocol: Document 03/23/20 12:07 MA (Rec: 03/23/20 12:55 MA [id number]) Physical Therapy Assessment Goals Four Impairment Arm pain/hand numbness limits sleep at night Group Home Goal (LTG) Pt to report no missed sleep due to arm pain and hand numbness for four days out of a week. (02/28/20: Pt having no numbness, occasional tinging during night) LTG Duration 03/30/20 (02/28/20: Progressing) Three Impairment Forearm tightness limits R Wrist AROM extension Group Home Goal (LTG) Pt to increase AROM extension to 60? to demonstrate decreased tone in right wrist flexors LTG Duration 03/30/20 Two Impairment Pt displays right hand subgrade roller operator weakness Group Home Goal (LTG) Pt to increase subgrade roller operator strength of right hand to at least 35# LTG Duration 03/30/20 One Impairment Pt does not have an appropriate home exercise program Short Term Goal (STG) Pt to be independent and compliant with an appropriate HEP. (02/28/20: Pt has HEP of shoulder, wrist, hand & posture ex's) STG Duration 02/28/20 (02/28/20: Progressing) Assessment Summary Assessment CRITICAL CARE NURSE discussed changing to 1x/ week but pt would like to continue with 2x/week POC and ending session with US. Pt is performing all exercises well with minor cues to avoid over extension of fingers during extension exercises. Wrist flexion/extension exercises increased resistance to TB#2 Physical Therapy Plan Frequency and Duration Frequency of Treatment 2x/Week Duration of Treatment Two months Plan of Care Start Date 01/29/20 Plan of Care End Date 03/30/20 Therapeutic Interventions Therapeutic Interventions Home Exercise Program,Manual Therapy,Patient/Caregiver Education,Self-Care/Home Management,Soft Tissue Mobilization,Therapeutic Activities,Therapeutic Exercises Modalities Cold Pack/Ice Massage,Electric Stimulation,Hot Packs, Ultrasound Next Visit Focus/Plan Next Note Type Treatment Note Next Visit Plan STM, Flexibility/stretching, subgrade roller operator strengthening, finger extensor strengthening, US to decrease any edema/ inflammation
--- NOTE | 2020-03-27 16:27 | PT.OTN ---
Current Diagnoses Carpal tunnel syndrome, unspecified upper limb (03/27/20) Carpal tunnel syndrome, right upper limb (03/27/20) Pain in right wrist (03/27/20) Stiffness of right wrist, not elsewhere classified (03/27/20) Physical Therapy Treatment Note PT-OP-A Visit Information Start: 01/29/20 10:28 Freq: Status: Active Protocol: Document 03/27/20 15:08 LRN (Rec: 03/27/20 16:26 LRN [id number]) Out-Patient Physical Therapy Visit Information Visit Information Visit Type Progress Note Visit Start Time 15:08 Visit Stop Time 15:55 Total Visit Minutes 47 Visit Number 12 Evaluation Information Evaluation Date 01/29/20 Precautions Precautions Pt has lupus and hx of blood clots/PE. PT-OP-B Current Condition Start: 01/29/20 10:28 Freq: Status: Active Protocol: Document 01/29/20 09:45 DCW (Rec: 01/29/20 11:02 DCW [id number]) Current Condition History of Current Condition Onset Date one month history Current Complaints Finger/hand numbness, arm pain History of Current Condition Pt is a 24 year old female presenting with a one month history of right hand and finger numbness, as well as forearm pain. Pt reports two years ago, she had the same pain in her left arm, was eventually diagnosed with carpal tunnel syndrome, and one year ago underwent a surgical release, which helped eliminate her symptoms. Pt is pretty sure she has carpal tunnel syndrome now in the right, because it feels the same, but she would like to avoid surgery again if possible. Pt reports she has fairly constant numbness in her hand and fingers (mainly index and middle), but then at night she gets pain in her right forearm. Pt also notes worsened pain with heavy lifting. Pt has tried splints at night, but they seemed to make it worse. 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 Breast surgery 03/02/20, no complications. No interference with hand. States she is now sleeping through the night 4-5x/night. PT-OP-F Manual Assessment Start: 01/29/20 10:28 Freq: Status: Active Protocol: Document 01/29/20 09:45 DCW (Rec: 01/29/20 11:02 DCW [id number]) Manual Assessments Soft Tissue Assessment Soft Tissue Mobility Assessment Increased tone and tenderness to palpation 3/4 - Wincing and withdraw in Wrist Flexors PT-OP-K Range of Motion Start: 01/29/20 10:28 Freq: Status: Active Protocol: Document 03/27/20 15:08 LRN (Rec: 03/27/20 16:26 LRN [id number]) Wrist Goniometric Range of Motion Wrist Right Flexion Active (degrees) 88 Extension Active (degrees) 70 Extension Passive (degrees) 95 ROM Limitations Comments Wrist ext: Elbow straight: AROM is 60 degs, PROM is 90 degs Elbow 90 degs flexed: AROM is 70 degs, PROM is 95 degs. Wrist flex: Elbow straight: AROM is 80 degs, PROM is 90 degs Elbow 90 degs flexed: AROM is 90 degs, PROM is 95 degs. PT-OP-L Special Tests Start: 01/29/20 10:28 Freq: Status: Active Protocol: Document 01/29/20 09:45 DCW (Rec: 01/29/20 11:02 DCW [id number]) Special Tests Wrist/Hand Special Tests Tinel's Sign Test Results Positive Right Reverse Phalen's Test Test Results Positive Right Phalen's Test Test Results Negative PT-OP-M Strength Start: 01/29/20 10:28 Freq: Status: Active Protocol: Document 03/27/20 15:08 LRN (Rec: 03/27/20 16:26 LRN [id number]) Hand Teleradiologist/Pinch Strength Hand Dominance Hand Dominance Left Hand Strength Right Teleradiologist (lbs) 28 Comments 3 Trials: lbs (35, 23,26) kg (16, 13, 11); Left Teleradiologist (lbs) 45 Comments 3 Trials: lbs (51, 48, 35) kg (21, 22, 16 PT-OP-Q Treatments Start: 01/29/20 10:28 Freq: Status: Active Protocol: Document 03/27/20 15:08 LRN (Rec: 03/27/20 16:26 LRN [id number]) Therapeutic Exercises Sitting Exercises Wrist flex stretch Sitting Exercise Name Wrist flex stretching Side right Reps/Minutes 3' Wrist ext stretch Sitting Exercise Name Wrist ext stretching Side right Reps/Minutes 3' Thumb Ext Sitting Exercise Name Ext at each joint Side right Resistance Rubber band Reps/Minutes 3' Comments Phys assist and cuing needed for proper movement, full motion & no hyperext Finger Sitting Exercise Name Digits 1-5 Flex/Ext individually Side right Resistance Rubber band digits 2,3 Reps/Minutes 12' Finger AB Side right Resistance rubber band Reps/Minutes 2' Self-Care/Home Management Treatment Education Patient Education Joint Protection,Pain Management,Posture Other Education At length discussion of nighttime positioning of head/ neck, R shoulder/arm, and wrist. Discussion of use of R wrist splint, with problem solving for if wrist splint is needed at night. Activities Self-Care/Home Management Activities Quick review of pt's HEP to continue. PT-OP-R Modalities Start: 01/29/20 10:28 Freq: Status: Active Protocol: Document 03/23/20 12:07 MA (Rec: 03/23/20 12:55 MA [id number]) Ultrasound Therapy Treatment Forearm Treatment Duration (minutes) 3 Patient Position Sitting Applicator Size (cm2) 10 Frequency Setting (mHz) 1 Mode Setting Pulsed Duty Cycle 50% Intensity Setting (w/cm2) 1.2 R Thenar [place] Treatment Duration (minutes) 3 Patient Position Sitting Applicator Size (cm2) 2 Frequency Setting (mHz) 1 Mode Setting Pulsed Duty Cycle 50% Intensity Setting (w/cm2) 1.0 Carpel tunnel Treatment Duration (minutes) 3 Patient Position Sitting Applicator Size (cm2) 2 Frequency Setting (mHz) 3 Mode Setting Pulsed Duty Cycle 50% Intensity Setting (w/cm2) 1.0 PT-OP-T Assessment and Plan Start: 01/29/20 09:36 Freq: Status: Active Protocol: Document 03/27/20 15:08 LRN (Rec: 03/27/20 16:26 LRN [id number]) Physical Therapy Assessment Goals Four Impairment Arm pain/hand numbness limits sleep at night Short Term Goal (STG) Decrease numbness/tingling in R forearm & hand to 1-2x/week. STG Duration 05/08/20 Power Station Operator Goal (LTG) Pt to report no missed sleep due to arm pain and hand numbness for four days out of a week. (03/27/20: 2-3x/week having numbness & tinging in R arm/ hand during the night) LTG Duration 03/30/20 (03/27/20: MET GOAL) Three Impairment Forearm tightness limits R Wrist AROM extension Group Home Goal (LTG) Pt to increase AROM extension to 60? to demonstrate decreased tone in right wrist flexors LTG Duration 03/30/20 (03/27/20: MET GOAL) Two Impairment Pt displays right hand zigzag machine operator weakness Power Station Operator Goal (LTG) Pt to increase zigzag machine operator strength of right hand to at least 35# (03/27/20: 3 Trials: in lbs is 35, 23,26. Avg zigzag machine operator strength is 28#). LTG Duration 03/30/20 (03/27/20: MET GOAL, but not for avg zigzag machine operator strength) One Impairment Pt does not have an appropriate home exercise program Short Term Goal (STG) Pt to be independent and compliant with an appropriate HEP. (03/27/20: Pt has HEP of shoulder, wrist, hand & posture ex's) STG Duration 05/08/20 (03/27/20: Appropriate HEP to date) Progress Towards Goals Progress Towards Goals Progressing Toward Goals Progress Comments Goals Mets except zigzag machine operator strength was able to achieve 35# with a one time squeeze, but on avg was 28#. Goal for HEP, it is appropriate for current status , but further progression is expected. Assessment Summary Assessment Pt has met goal except HEP limited to appropriateness at her current status, and zigzag machine operator strength only in terms of one time zigzag machine operator strength. On avg her zigzag machine operator strength was unchanged at 28#. She is having numbness/tingling/ discomfort in her R forearm/ wrist/hand at nighttime 2-3x/ week. I feel the pt has good potential to decrease her onset of discomfort even further with continued therapy and time; therefore therapy will be every other week to allow the pt to continue working on improving her R wrist stability and strength and mildly mobility. Onset of symptoms may be Physical Therapy Plan Frequency and Duration Frequency of Treatment Every Other Week Plan of Care Start Date 03/27/20 Plan of Care End Date 05/08/20 Next Visit Focus/Plan Next Note Type Treatment Note Next Visit Plan Pt has 2 visits per insurance limitation. Review pt's sleeping positions (head, shoulder, elbow, wrist position). Assess for need of C/S manual stretching. Check if pt appropriate for Pec stretch (following breast surgery). Flexibility/ stretching, zigzag machine operator strengthening , finger extensor strengthening, US to decrease any edema/inflammation.
--- NOTE | 2020-03-27 16:28 | PT.OPPOC ---
Physical, Occupational & Speech Therapy At [facility] Current Diagnoses Carpal tunnel syndrome, unspecified upper limb (03/27/20) Carpal tunnel syndrome, right upper limb (03/27/20) Pain in right wrist (03/27/20) Stiffness of right wrist, not elsewhere classified (03/27/20) Visit Care Team Role Provider Type Frida Singh MD Attending Provider Physician Primary Care Provider Referring Provider Specialty: [facility] Address: [address] [place] [address], [facility] Email: [email or web address] Plan Of Care PT-OP-T Assessment and Plan Start: 01/29/20 09:36 Freq: Status: Active Protocol: Document 03/27/20 15:08 LRN (Rec: 03/27/20 16:26 LRN [id number]) Physical Therapy Assessment Goals Four Impairment Arm pain/hand numbness limits sleep at night Short Term Goal (STG) Decrease numbness/tingling in R forearm & hand to 1-2x/week. STG Duration 05/08/20 Scrum Project Manager Goal (LTG) Pt to report no missed sleep due to arm pain and hand numbness for four days out of a week. (03/27/20: 2-3x/week having numbness & tinging in R arm/ hand during the night) LTG Duration 03/30/20 (03/27/20: MET GOAL) Three Impairment Forearm tightness limits R Wrist AROM extension Usp Goal (LTG) Pt to increase AROM extension to 60? to demonstrate decreased tone in right wrist flexors LTG Duration 03/30/20 (03/27/20: MET GOAL) Two Impairment Pt displays right hand theatre instructor weakness Scrum Project Manager Goal (LTG) Pt to increase theatre instructor strength of right hand to at least 35# (03/27/20: 3 Trials: in lbs is 35, 23,26. Avg theatre instructor strength is 28#). LTG Duration 03/30/20 (03/27/20: MET GOAL, but not for avg theatre instructor strength) One Impairment Pt does not have an appropriate home exercise program Short Term Goal (STG) Pt to be independent and compliant with an appropriate HEP. (03/27/20: Pt has HEP of shoulder, wrist, hand & posture ex's) STG Duration 05/08/20 (03/27/20: Appropriate HEP to date) Progress Towards Goals Progress Towards Goals Progressing Toward Goals Progress Comments Goals Mets except theatre instructor strength was able to achieve 35# with a one time squeeze, but on avg was 28#. Goal for HEP, it is appropriate for current status , but further progression is expected. Assessment Summary Assessment Pt has met goal except HEP limited to appropriateness at her current status, and theatre instructor strength only in terms of one time theatre instructor strength. On avg her theatre instructor strength was unchanged at 28#. She is having numbness/tingling/ discomfort in her R forearm/ wrist/hand at nighttime 2-3x/ week. I feel the pt has good potential to decrease her onset of discomfort even further with continued therapy and time; therefore therapy will be every other week to allow the pt to continue working on improving her R wrist stability and strength and mildly mobility. Onset of symptoms may be Physical Therapy Plan Frequency and Duration Frequency of Treatment Every Other Week Plan of Care Start Date 03/27/20 Plan of Care End Date 05/08/20 Next Visit Focus/Plan Next Note Type Treatment Note Next Visit Plan Pt has 2 visits per insurance limitation. Review pt's sleeping positions (head, shoulder, elbow, wrist position). Assess for need of C/S manual stretching. Check if pt appropriate for Pec stretch (following breast surgery). Flexibility/ stretching, theatre instructor strengthening , finger extensor strengthening, US to decrease any edema/inflammation. Plan of Care Dates Plan of Care Start Date 03/27/20 Plan of Care End Date 05/08/20 Electronically Signed by: Apryl Hancock, PT 03/27/20 [id number] Please Sign and Return: I have reviewed this Plan of Care and certify that the skilled therapy services above are required to meet the patient?s needs. Physician Signature Date Printed Name and Credentials Clinical Instructor Signature Printed Name and Credentials
--- NOTE | 2020-04-06 12:44 | PT.OTN ---
Current Diagnoses Carpal tunnel syndrome, unspecified upper limb (04/06/20) Carpal tunnel syndrome, right upper limb (04/06/20) Pain in right wrist (04/06/20) Stiffness of right wrist, not elsewhere classified (04/06/20) Physical Therapy Treatment Note PT-OP-A Visit Information Start: 01/29/20 10:28 Freq: Status: Active Protocol: Document 04/06/20 12:04 DCW (Rec: 04/06/20 12:43 DCW [id number]) Out-Patient Physical Therapy Visit Information Visit Information Visit Type Treatment Note Visit Start Time 12:04 Visit Stop Time 12:45 Total Visit Minutes 41 Visit Number 13 Number of CEMENT CUTTER Visits 0 Evaluation Information Evaluation Date 01/29/20 PT-OP-B Current Condition Start: 01/29/20 10:28 Freq: Status: Active Protocol: Document 01/29/20 09:45 DCW (Rec: 01/29/20 11:02 DCW [id number]) Current Condition History of Current Condition Onset Date one month history Current Complaints Finger/hand numbness, arm pain History of Current Condition Pt is a 24 year old female presenting with a one month history of right hand and finger numbness, as well as forearm pain. Pt reports two years ago, she had the same pain in her left arm, was eventually diagnosed with carpal tunnel syndrome, and one year ago underwent a surgical release, which helped eliminate her symptoms. Pt is pretty sure she has carpal tunnel syndrome now in the right, because it feels the same, but she would like to avoid surgery again if possible. Pt reports she has fairly constant numbness in her hand and fingers (mainly index and middle), but then at night she gets pain in her right forearm. Pt also notes worsened pain with heavy lifting. Pt has tried splints at night, but they seemed to make it worse. 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 PT-OP-C Subjective Start: 01/29/20 10:28 Freq: Status: Active Protocol: Document 04/06/20 12:04 DCW (Rec: 04/06/20 12:43 DCW [id number]) OP-PT Subjective Patient Comments Patient Comments Pt reports things are going well, and she has been seeing improvement. PT-OP-F Manual Assessment Start: 01/29/20 10:28 Freq: Status: Active Protocol: Document 01/29/20 09:45 DCW (Rec: 01/29/20 11:02 DCW [id number]) Manual Assessments Soft Tissue Assessment Soft Tissue Mobility Assessment Increased tone and tenderness to palpation 3/4 - Wincing and withdraw in Wrist Flexors PT-OP-K Range of Motion Start: 01/29/20 10:28 Freq: Status: Active Protocol: Document 03/27/20 15:08 LRN (Rec: 03/27/20 16:26 LRN [id number]) Wrist Goniometric Range of Motion Wrist Right Flexion Active (degrees) 88 Extension Active (degrees) 70 Extension Passive (degrees) 95 ROM Limitations Comments Wrist ext: Elbow straight: AROM is 60 degs, PROM is 90 degs Elbow 90 degs flexed: AROM is 70 degs, PROM is 95 degs. Wrist flex: Elbow straight: AROM is 80 degs, PROM is 90 degs Elbow 90 degs flexed: AROM is 90 degs, PROM is 95 degs. PT-OP-L Special Tests Start: 01/29/20 10:28 Freq: Status: Active Protocol: Document 01/29/20 09:45 DCW (Rec: 01/29/20 11:02 DCW [id number]) Special Tests Wrist/Hand Special Tests Tinel's Sign Test Results Positive Right Reverse Phalen's Test Test Results Positive Right Phalen's Test Test Results Negative PT-OP-M Strength Start: 01/29/20 10:28 Freq: Status: Active Protocol: Document 03/27/20 15:08 LRN (Rec: 03/27/20 16:26 LRN [id number]) Hand Commercial Photographer/Pinch Strength Hand Dominance Hand Dominance Left Hand Strength Right Commercial Photographer (lbs) 28 Comments 3 Trials: lbs (35, 23,26) kg (16, 13, 11); Left Commercial Photographer (lbs) 45 Comments 3 Trials: lbs (51, 48, 35) kg (21, 22, 16 PT-OP-Q Treatments Start: 01/29/20 10:28 Freq: Status: Active Protocol: Document 04/06/20 12:04 DCW (Rec: 04/06/20 12:43 DCW [id number]) Therapeutic Exercises Sitting Exercises Finger Sitting Exercise Name Digits 1-5 Flex Side right Resistance Green Digiflex variety hand ex Sitting Exercise Name Oscilations/Twist Side right Resistance Red Equipment Used Flexbar Manual Therapy Treatment Soft Tissue Mobilization forearm flexors, SFT, MTPS Body Location right forearm Mobilization Type Cross-Friction,Rolling, Strumming,Sustained Pressure Intensity/Depth Moderate Body Position Sitting Joint Mobilizations R Joint carpals, MTP, distal ulna/ radius Direction PA, AP, rotation Grade II Body Position Sitting Comments pain free range PT-OP-R Modalities Start: 01/29/20 10:28 Freq: Status: Active Protocol: Document 04/06/20 12:04 DCW (Rec: 04/06/20 12:43 DCW [id number]) Ultrasound Therapy Treatment Forearm Treatment Duration (minutes) 4 Patient Position Sitting Applicator Size (cm2) 10 Frequency Setting (mHz) 1 Mode Setting Pulsed Duty Cycle 50% Intensity Setting (w/cm2) 1.2 R Thenar [place] Treatment Duration (minutes) 3 Patient Position Sitting Applicator Size (cm2) 2 Frequency Setting (mHz) 1 Mode Setting Pulsed Duty Cycle 50% Intensity Setting (w/cm2) 1.0 Carpel tunnel Treatment Duration (minutes) 3 Patient Position Sitting Applicator Size (cm2) 2 Frequency Setting (mHz) 3 Mode Setting Pulsed Duty Cycle 50% Intensity Setting (w/cm2) 1.0 PT-OP-T Assessment and Plan Start: 01/29/20 09:36 Freq: Status: Active Protocol: Document 04/06/20 12:04 DCW (Rec: 04/06/20 12:43 DCW [id number]) Physical Therapy Assessment Goals Four Impairment Arm pain/hand numbness limits sleep at night Short Term Goal (STG) Decrease numbness/tingling in R forearm & hand to 1-2x/week. STG Duration 05/08/20 Garbage Collector Goal (LTG) Pt to report no missed sleep due to arm pain and hand numbness for four days out of a week. (03/27/20: 2-3x/week having numbness & tinging in R arm/ hand during the night) LTG Duration 03/30/20 (03/27/20: MET GOAL) Three Impairment Forearm tightness limits R Wrist AROM extension Custodial Goal (LTG) Pt to increase AROM extension to 60? to demonstrate decreased tone in right wrist flexors LTG Duration 03/30/20 (03/27/20: MET GOAL) Two Impairment Pt displays right hand interrelated special education teacher weakness Garbage Collector Goal (LTG) Pt to increase interrelated special education teacher strength of right hand to at least 35# (03/27/20: 3 Trials: in lbs is 35, 23,26. Avg interrelated special education teacher strength is 28#). LTG Duration 03/30/20 (03/27/20: MET GOAL, but not for avg interrelated special education teacher strength) One Impairment Pt does not have an appropriate home exercise program Short Term Goal (STG) Pt to be independent and compliant with an appropriate HEP. (03/27/20: Pt has HEP of shoulder, wrist, hand & posture ex's) STG Duration 05/08/20 (03/27/20: Appropriate HEP to date) Assessment Summary Assessment Pt has reached max insurance benefit for this year. Is doing well with her HEP, is agreeable to discharge at this time. Physical Therapy Plan Frequency and Duration Frequency of Treatment Every Other Week Plan of Care Start Date 03/27/20 Plan of Care End Date 05/08/20 Discharge Physical Therapy Discharge Reasons No Longer Attending PT Next Visit Focus/Plan Next Note Type Discharge Summary
== END 2020-06-05 09:20 | disposition home or self-care (01) ==
LOC: PHYS 12:00
PROVIDERS: PCP Family Medicine; Referring Provider Family Medicine; Visit Provider Family Medicine
DX: G56.00 Carpal tunnel syndrome, unspecified upper limb (principal); G56.01 Carpal tunnel syndrome, right upper limb; M25.531 Pain in right wrist; M25.631 Stiffness of right wrist, not elsewhere classified
CPT/HCPCS: 97035; 97110; 97140; 97162; 97535

== ENCOUNTER → 2020-07-14 12:12 | Outpatient (CLI) | payer OTHER, MEDICAID, SELFPAY ==
[2020-07-14 12:49] LABS: Add Manual Diff / Slide Review NO; Basophils Absolute Auto 0 /uL (0-100); Basophils Percent Auto 0.4 % (0-2); Eosinophils Absolute Auto 100 /uL (0-450); Eosinophils Percent Auto 1.1 % (2-4); Hemoglobin 10.5 g/dL (12.0-16.0); Lymphocytes Absolute Auto 1900 /uL (1100-4500); Lymphocytes Percent Auto 19.2 % (25-40); Mean Corpuscular Hemoglobin 23.3 PG (26-34); Mean Corpuscular Volume 72.9 fL (80-100); Monocytes Absolute Auto 600 /uL (0-900); Monocytes Percent Auto 6.1 % (3-14); Neutrophils Absolute Auto 7300 /uL (1500-7000); Neutrophils Percent Auto 73.2 % (50-75); Platelet Count 474 X10^3/uL (150-400); Red Blood Cell Count 4.52 X10^6/uL (4.0-5.2); Red Cell Distribution Width 18.3 % (11.6-14.8); White Blood Cell Count 9.9 X10^3/uL (4.5-11.0)
[2020-07-14 13:08] LABS: Erythrocyte Sedimentation Rate 66 MM/HR (0-20)
[2020-07-14 13:14] LABS: Appearance Urine UA SL CLOUDY; Bilirubin Urine UA NEGATIVE (NEGATIVE); Color Urine UA YELLOW; Glucose Urine UA NEGATIVE (Negative); Ketones Urine UA NEGATIVE (NEGATIVE); Leukocyte Esterase Urine UA 2+ (NEGATIVE); Nitrite Urine UA NEGATIVE (Negative); Occult Blood Urine UA TRACE-INTACT (Negative); Protein Urine UA TRACE (Negative); Specific Gravity Urine UA 1.025 (1.000-1.035); Urobilinogen Urine UA 0.2 E.U./dL (0.2)
[2020-07-14 13:17] LABS: pH Urine UA 5.5 (4.5-8.0)
[2020-07-14 13:25] LABS: Bacteria Urine Many (>30); Mucus Urine 1+ (Negative); RBC Urine 0-1/HPF (0-5/HPF); Squamous Epithelial Cell Urine 1-5 /HPF (0-5/HPF); WBC Urine 30-100/HPF (0-5/HPF)
[2020-07-14 13:26] LABS: Culture Indicated Urine Specimen Cultured
[2020-07-14 13:42] LABS: Alanine Aminotransferase 17 IU/L (<35); Albumin 4.1 g/dL (3.5-5.0); Albumin Globulin Ratio 1.1 (1.0-2.8); Alkaline Phosphatase 101 U/L (38-126); Aspartate Aminotransferase 24 IU/L (14-36); BUN Creatinine Ratio 13.5 (6-22); Bilirubin Total 0.2 mg/dL (0.2-1.3); Blood Urea Nitrogen 10 mg/dL (7-17); Calcium 9.5 mg/dL (8.4-10.2); Carbon Dioxide 26 mmol/L (22-32); Chloride 104 mmol/L (98-107); Estimated Glomerular Filt Rate > 60.0 mL/min (>60); Globulin 3.6 g/dL (1.7-4.1); Glucose 96 mg/dL (70-100); HEMOLYSIS < 15 (0-50); Potassium 4.3 mmol/L (3.4-5.1); Sodium 136 mmol/L (137-145); Total Protein 7.7 g/dL (6.3-8.2)
[2020-07-14 16:15] LABS: Protein (Total) Urine Random 7 mg/dL (0-12)
[2020-07-14 16:22] LABS: Creatinine Urine Random 212.1 mg/dL; Protein Creatinine Ratio Urine 0.03 GRAM/24H
[2020-07-14 16:29] LABS: High Sensitivity CRP - Cardiac > 15.0 mg/L (1.0-3.0)
[2020-07-15 11:47] LABS: Complement C3 210 mg/dL (82-167)
[2020-07-15 15:12] LABS: DNA (DS) Antibody 6 IU/mL (0-9)
== END ==
PROVIDERS: PCP Family Medicine; Referring Provider Internal Medicine Rheumatology; Visit Provider Internal Medicine Rheumatology
DX: M32.9 Systemic lupus erythematosus, unspecified (principal)
CPT/HCPCS: 36415; 80053; 81001; 82570; 84156; 85025; 85651; 86140; 86160; 86225; 87086

== ENCOUNTER → 2020-08-28 11:34 | Outpatient (CLI) | payer OTHER, MEDICAID, SELFPAY ==
--- NOTE | 2020-08-28 11:35 | DI.US.S_ITS ---
LIMITED ULTRASOUND OF LEFT BREAST: 08/28/2020 CLINICAL: Palpable left breast lump. Comparison is made to exams dated: 07/09/2019 ultrasound, 04/22/2019 ultrasound, 11/01/2018 ultrasound, and 09/04/2018 ultrasound [facility]. Real-time ultrasound of the left breast 9-10 o'clock region was performed. Larson scale images of the real-time examination were reviewed. No significant abnormalities were seen sonographically in the left breast. IMPRESSION: NEGATIVE There is no sonographic evidence of malignancy. There are no abnormalities seen in the left breast to correspond with the pain at 9 and 10 o'clock, however, clinical correlation is recommended. Follow-up with ACR/ACS guidelines. This exam was interpreted at Station ID: [id number]. Electronically Signed By: Darrin livingston/lake:08/28/2020 15:47:26 letter sent: Clinical Evaluation Ultrasound BI-RADS: 1 Negative
== END ==
PROVIDERS: PCP Family Medicine; Referring Provider Nurse Practitioner Family; Visit Provider Nurse Practitioner Family
DX: N64.4 Mastodynia (principal); Z98.890 Other specified postprocedural states; N63.25 Unspecified lump in the left breast, overlapping quadrants
CPT/HCPCS: 76642

== ENCOUNTER → 2020-09-17 13:02 | Outpatient (CLI) | payer OTHER, MEDICAID, SELFPAY ==
[2020-09-17 15:02] LABS: Add Manual Diff / Slide Review NO; Basophils Absolute Auto 100 /uL (0-100); Basophils Percent Auto 1.2 % (0-2); Eosinophils Absolute Auto 100 /uL (0-450); Eosinophils Percent Auto 1.2 % (2-4); Hematocrit 33.5 % (36-46); Hemoglobin 10.5 g/dL (12.0-16.0); Lymphocytes Absolute Auto 2000 /uL (1100-4500); Lymphocytes Percent Auto 22.3 % (25-40); Mean Corpuscular HGB Conc 31.5 % (30-36); Mean Corpuscular Volume 73.1 fL (80-100); Monocytes Absolute Auto 600 /uL (0-900); Monocytes Percent Auto 7.1 % (3-14); Neutrophils Absolute Auto 6200 /uL (1500-7000); Neutrophils Percent Auto 68.2 % (50-75); Platelet Count 526 X10^3/uL (150-400); Red Blood Cell Count 4.58 X10^6/uL (4.0-5.2); Red Cell Distribution Width 17.5 % (11.6-14.8); White Blood Cell Count 9.1 X10^3/uL (4.5-11.0)
== END ==
PROVIDERS: PCP Family Medicine; Referring Provider Family Medicine; Visit Provider Family Medicine
DX: M32.8 Other forms of systemic lupus erythematosus (principal); R53.83 Other fatigue
CPT/HCPCS: 36415; 85025

== ENCOUNTER → 2020-10-13 15:12 | Outpatient (CLI) | payer OTHER, MEDICAID, SELFPAY ==
--- NOTE | 2020-10-13 15:14 | DI.RAD.S_ITS ---
PROCEDURE: XR FOOT RT MIN 3V INDICATIONS: right foot pain TECHNIQUE: 3 views of the foot were acquired. COMPARISON: [facility], , XR FOOT RT MIN 3V, 06/23/2018, 12:51. FINDINGS: Bones: No fractures or dislocations. No suspicious bony lesions. Incidentally noted ununited navicular. There is also os peroneum. Soft tissues: No tibiotalar joint effusion. Achilles tendon appears normal. IMPRESSION: Unremarkable examination. If the patient's pain or other symptoms persist, consider further evaluation with MRI Dictated by: Deric Franks M.D. on 10/13/2020 at 16:08 Approved by: Deric Franks M.D. on 10/13/2020 at 16:09
== END ==
PROVIDERS: PCP Family Medicine; Referring Provider Family Medicine; Visit Provider Family Medicine
DX: M79.671 Pain in right foot (principal)
CPT/HCPCS: 73630

== ENCOUNTER 2020-10-20 15:20 | Emergency (ER) | payer OTHER, MEDICAID, SELFPAY ==
--- NOTE | 2020-10-20 15:25 | ED_ITS ---
HPI - General Adult General Chief complaint: Extremity Injury, Lower Stated complaint: rt foot pain for a month Time Seen by Provider: 10/20/20 15:25 Source: patient Mode of arrival: Ambulatory Limitations: no limitations History of Present Illness HPI narrative: Patient is a 25-year-old female here for evaluation of pain to the top/front of her right ankle. She states that has been going on for the past several weeks. She does not remember any specific incident that caused the discomfort. Has been doing Tylenol without any improvement. Came in today because she was cleaning her house and while walking and standing on it today became very uncomfortable. Related Data Home Medications Medication Instructions Recorded Confirmed loratadine 10 mg tablet 10 mg PO DAILY 12/11/18 09/22/20 Previous Rx's Medication Instructions Recorded docusate sodium 100 mg capsule 200 mg PO BID #60 cap 07/22/19 lamotrigine 100 mg tablet 250 mg PO DAILY #75 tab 12/04/19 levothyroxine 75 mcg capsule 75 mcg PO DAILY #90 cap 01/14/20 omeprazole 20 mg tablet,delayed 20 mg PO BID #180 tab 01/14/20 release warfarin 5 mg tablet 5 mg PO DAILY #90 tab 01/14/20 hydroxychloroquine 200 mg tablet 400 mg PO DAILY #180 tab 06/08/20 mycophenolate mofetil 200 mg/mL See Rx Instructions PO BID #320 ml 07/30/20 oral suspension ondansetron 8 mg disintegrating 8 mg PO TID PRN #90 tab 07/30/20 tablet Allergies Allergy/AdvReac Type Severity Reaction Status Date / Time nabumetone AdvReac Mild itchy, Verified 08/26/20 08:39 stomach upset Review of Systems Constitutional Constitutional: Reports system reviewed and no additional complaints, except as documented Musculoskeletal Musculoskeletal: Denies tingling Comments: Right foot/ankle pain Integumentary/Breasts Skin/Breast: Denies rash Neurologic Neurologic: Denies tingling Hematologic/Lymphatic Hematologic/Lymphatic: Reports system reviewed and no additional complaints, except as documented Allergic/Immunologic Allergic/Immunologic: Reports system reviewed and no additional complaints, except as documented Patient History Medical History Antiphospholipid syndrome Breast lump on left side at 3 o'clock position Breast pain, left Chronic headache disorder GERD (gastroesophageal reflux disease) Hypothyroidism ОЛЕГ on CPAP Pulmonary embolism Systemic lupus Surgical History (Updated 03/06/20 @ 15:38 by Shania Ascencio MD) History of carpal tunnel release History of esophagogastroduodenoscopy (EGD) History of temporal artery biopsy (04/05/18) Family History Other Family history non-contributory Social History marital status: unmarried,single household members: family pets and animals: Yes seatbelt use: always working smoke detector in home: Yes carbon monox detector in home: Yes Smoking Status: Never smoker alcohol intake: current substance use type: does not use during the past year weight has: decreased > 10 lbs well-balanced diet: daily or most days daily servings fruits/ve-1 caffeine: Yes eating out: rarely or never Smoking Status: Never smoker alcohol intake frequency: 0-2 drinks per day Substance Use Type: does not use Exam Initial Vital Signs Initial Vital Signs: Vital Signs Temperature 99.1 F 10/20/20 15:26 Pulse Rate 120 H 10/20/20 15:26 Respiratory Rate 16 10/20/20 15:26 Blood Pressure 130/76 10/20/20 15:26 Pulse Oximetry 97 10/20/20 15:26 Const General: cooperative and comfortable Cardio Pulses: dorsalis pedis present on the right Skin Lesions: no lesions Rashes: no rashes Neuro Sensory Exam: no sensory deficits noted Extrem Other: Right knee and proximal fibula unremarkable. Right calf unremarkable. Her right foot and ankles unremarkable except for tenderness to palpation just anterior to the lateral malleolus and along the front of the tibiotalar joint. Psych Appearance: grossly normal and well kempt Course Vital Signs Vital signs: Vital Signs - 8 hr 10/20/20 15:26 Temperature 99.1 F Pulse Rate 120 H Respiratory Rate 16 Blood Pressure 130/76 Pulse Oximetry 97 Medical Decision Making MDM Narrative Medical decision making narrative: Patient is neurovascular intact. She ambulated back to the emergency department. Low suspicion for fracture. Even if it was fractured she has had symptoms for over a month and I would expected to be healed by now. She has tenderness to palpation over the location of the t endons from the distal fibula and also the distal tibia. Will place her in an James bandage for her comfort. We also discussed the use of ankle braces. Will have her contact her primary doctor to discuss further workup to include referral to see physical therapy/Orthopedics she expressed understanding and agreement. Discharge Plan Departure Patient Disposition: Home Clinical Impression: Ankle pain, right Instructions: How to Apply an Elastic Wrap on Ankle Activity Restrictions/Additional Instructions: I recommend you use the elastic bandage/ankle brace like we discussed. Also recommend you do your best to keep your foot elevated. Talk with your primary doctor about further workup to include any potential referrals to see physical therapy/Orthopedics. You can continue with Tylenol/ibuprofen for discomfort. Prescriptions: No Action loratadine 10 mg tablet 10 mg PO DAILY RF: 0 docusate sodium 100 mg capsule 200 mg PO BID Qty: 60 RF: 1 lamotrigine 100 mg tablet 250 mg PO DAILY Qty: 75 RF: 11 omeprazole 20 mg tablet,delayed release (DR/EC) 20 mg PO BID Qty: 180 RF: 3 warfarin 5 mg tablet 5 mg PO DAILY Qty: 90 RF: 2 levothyroxine 75 mcg capsule 75 mcg PO DAILY Qty: 90 RF: 3 hydroxychloroquine 200 mg tablet 400 mg PO DAILY Qty: 180 RF: 0 ondansetron 8 mg tablet,disintegrating 8 mg PO TID PRN (Reason: nausea and vomiting) Qty: 90 RF: 3 mycophenolate mofetil 200 mg/mL suspension for reconstitution See Rx Instructions PO BID Qty: 320 RF: 11 Referrals: Frida Singh MD [Primary Care Provider] -
[2020-10-20 15:26] VITALS: BP 130/76; PULSE 120; RESP 16; TEMP 37.3; O2SAT 97; BMI 47.2
[2020-10-20 15:35] VITALS: PULSE 111
== END 2020-10-20 15:40 | disposition home or self-care (01) ==
PROVIDERS: Emergency Provider Emergency Medicine; PCP Family Medicine
DX: M25.571 Pain in right ankle and joints of right foot (principal)
CPT/HCPCS: 99281; 99282

== ENCOUNTER → 2021-01-01 12:00 | Outpatient (CLI) | payer OTHER, MEDICAID, SELFPAY ==
[2021-01-01 12:57] LABS: RBC Urine None Seen (0-5/HPF)
[2021-01-01 13:31] LABS: Add Manual Diff / Slide Review NO; Basophils Absolute Auto 100 /uL (0-100); Basophils Percent Auto 0.9 % (0-2); Eosinophils Absolute Auto 100 /uL (0-450); Eosinophils Percent Auto 1.1 % (2-4); Hemoglobin 10.2 g/dL (12.0-16.0); Lymphocytes Absolute Auto 1800 /uL (1100-4500); Lymphocytes Percent Auto 21.1 % (25-40); Mean Corpuscular HGB Conc 30.9 % (30-36); Mean Corpuscular Volume 71.3 fL (80-100); Monocytes Absolute Auto 600 /uL (0-900); Monocytes Percent Auto 6.7 % (3-14); Neutrophils Absolute Auto 5900 /uL (1500-7000); Neutrophils Percent Auto 70.2 % (50-75); Platelet Count 572 X10^3/uL (150-400); Red Blood Cell Count 4.64 X10^6/uL (4.0-5.2); White Blood Cell Count 8.5 X10^3/uL (4.5-11.0)
[2021-01-01 13:40] LABS: Appearance Urine UA CLEAR; Bilirubin Urine UA NEGATIVE (NEGATIVE); Color Urine UA YELLOW; Glucose Urine UA NEGATIVE (Negative); Hemoglobin A1C% w Est Avg Glu 5.3 % (4.0-6.0); Ketones Urine UA NEGATIVE (NEGATIVE); Leukocyte Esterase Urine UA 1+ (NEGATIVE); Nitrite Urine UA NEGATIVE (Negative); Occult Blood Urine UA NEGATIVE (Negative); Protein Urine UA TRACE (Negative); Specific Gravity Urine UA 1.015 (1.000-1.035); Urobilinogen Urine UA 0.2 E.U./dL (0.2)
[2021-01-01 13:41] LABS: pH Urine UA 6.5 (4.5-8.0)
[2021-01-01 13:46] LABS: Alanine Aminotransferase 15 IU/L (<35); Albumin 4.1 g/dL (3.5-5.0); Albumin Globulin Ratio 1.2 (1.0-2.8); Alkaline Phosphatase 74 U/L (38-126); Aspartate Aminotransferase 25 IU/L (14-36); BUN Creatinine Ratio 9.9 (6-22); Bilirubin Total 0.4 mg/dL (0.2-1.3); Blood Urea Nitrogen 7 mg/dL (7-17); Calcium 9.3 mg/dL (8.4-10.2); Carbon Dioxide 26 mmol/L (22-32); Chloride 105 mmol/L (98-107); Estimated Glomerular Filt Rate > 60.0 mL/min (>60); Globulin 3.4 g/dL (1.7-4.1); Glucose 88 mg/dL (70-100); HEMOLYSIS < 15 (0-50); Phosphorous 3.2 mg/dL (2.5-4.5); Potassium 4.1 mmol/L (3.4-5.1); Sodium 138 mmol/L (137-145); Total Protein 7.5 g/dL (6.3-8.2)
[2021-01-01 13:52] LABS: Bacteria Urine Moderate (10-30); Culture Indicated Urine Specimen Cultured; Squamous Epithelial Cell Urine 0-1 /HPF (0-5/HPF); WBC Urine 5-10/HPF (0-5/HPF)
[2021-01-01 14:06] LABS: Iron 36 ug/dL (37-170)
[2021-01-01 14:16] LABS: Total Iron Binding Capacity 348 ug/dL (265-497)
[2021-01-01 14:18] LABS: Ferritin 17 ng/mL (6-137)
[2021-01-01 15:34] LABS: Creatinine Urine Random 177.9 mg/dL; Protein (Total) Urine Random 6 mg/dL (0-12); Protein Creatinine Ratio Urine 0.03 GRAM/24H
[2021-01-01 15:51] LABS: Vitamin D 25 Hydroxy (D3) 45.8 ng/mL (30.0-100.0)
[2021-01-02 07:36] LABS: Complement C3 187 mg/dL (82-167)
[2021-01-02 10:13] LABS: Parathyroid Hormone Int 55 pg/mL (15-65)
[2021-01-14 08:47] LABS: Cardiolipin IgA Negative
[2021-01-14 08:55] LABS: DNA (DS) Antibody 5 IU/mL (0-9)
== END ==
PROVIDERS: PCP Family Medicine; Referring Provider Internal Medicine Nephrology; Visit Provider Internal Medicine Nephrology
DX: E66.01 Morbid (severe) obesity due to excess calories (principal); Z68.37 Body mass index [BMI] 37.0-37.9, adult; M32.14 Glomerular disease in systemic lupus erythematosus; D50.9 Iron deficiency anemia, unspecified
CPT/HCPCS: 36415; 80053; 81001; 82306; 82570; 82728; 83036; 83520; 83540; 83550; 83735; 83970; 84100; 84156; 85025; 85610; 86147; 86148; 86160; 86225; 87086

== ENCOUNTER → 2021-01-08 14:25 | Outpatient (CLI) | payer OTHER, MEDICAID, SELFPAY ==
[2021-01-08 15:40] LABS: Cholesterol 153 mg/dL (140-199); HDL Cholesterol 39 mg/dL (40-60); LDL Cholesterol Calculated 98 mg/dL (<100); Triglycerides 79 mg/dL (35-150)
== END ==
PROVIDERS: PCP Family Medicine; Referring Provider Internal Medicine Nephrology; Visit Provider Internal Medicine Nephrology
DX: E66.01 Morbid (severe) obesity due to excess calories (principal); Z68.37 Body mass index [BMI] 37.0-37.9, adult
CPT/HCPCS: 36415; 80061

== ENCOUNTER → 2021-02-24 16:07 | Outpatient (CLI) | payer OTHER, MEDICAID, SELFPAY ==
[2021-02-24 16:41] LABS: Add Manual Diff / Slide Review NO; Basophils Absolute Auto 100 /uL (0-100); Basophils Percent Auto 0.5 % (0-2); Eosinophils Absolute Auto 100 /uL (0-450); Eosinophils Percent Auto 0.6 % (2-4); Hematocrit 36.5 % (36-46); Hemoglobin 11.1 g/dL (12.0-16.0); Lymphocytes Absolute Auto 2100 /uL (1100-4500); Lymphocytes Percent Auto 20.6 % (25-40); Mean Corpuscular HGB Conc 30.5 % (30-36); Mean Corpuscular Volume 72.1 fL (80-100); Monocytes Absolute Auto 600 /uL (0-900); Monocytes Percent Auto 5.7 % (3-14); Neutrophils Absolute Auto 7300 /uL (1500-7000); Neutrophils Percent Auto 72.6 % (50-75); Platelet Count 622 X10^3/uL (150-400); Red Blood Cell Count 5.06 X10^6/uL (4.0-5.2); Red Cell Distribution Width 18.1 % (11.6-14.8); White Blood Cell Count 10.1 X10^3/uL (4.5-11.0)
[2021-02-24 16:53] LABS: INR 4.5 (0.9-1.3)
== END ==
PROVIDERS: PCP Family Medicine; Referring Provider Family Medicine; Visit Provider Family Medicine
DX: D64.9 Anemia, unspecified (principal); R53.83 Other fatigue; Z79.01 Long term (current) use of anticoagulants
CPT/HCPCS: 36415; 85025; 85610